=== PATIENT | male | born 1940 | race Caucasian/White ===

== ENCOUNTER 2020-12-11 19:40 | Inpatient (IN) | payer MEDICARE, SELFPAY ==
[2020-12-11] VITALS (7 sets, daily range): BP systolic 100–124; BP diastolic 62–84; PULSE 78–100; RESP 22–27; TEMP 36.6; O2SAT 87–94; BMI 28.8
--- NOTE | 2020-12-11 19:55 | ECG_ITS ---
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 Measurements Intervals [place] Rate: 81 P: 15 CA: 193 QRS: -16 QRSD: 167 T: 146 QT: 423 QTc: 492 Interpretive Statements SINUS RHYTHM POSSIBLE LEFT ATRIAL ENLARGEMENT [-0.1mV P WAVE IN V1/V2] LEFT BUNDLE BRANCH BLOCK [120+ ms QRS DURATION, 80+ ms Q/S IN V1/V2, 85+ ms R IN I/aVL/V5/V6] No previous ECG available for comparison Electronically Signed On 12-12-2020 20:03:12 CDT by Jared De M.D. [email or web address]
--- NOTE | 2020-12-11 19:55 | XRR_ITS ---
PROCEDURE INFORMATION: Exam: XR Chest Exam date and time: 12/11/2020 7:55 PM Age: 80 years old Clinical indication: Dyspnea; Additional info: SOB TECHNIQUE: Imaging protocol: XR of the chest. Views: 1 view. COMPARISON: No relevant prior studies available. FINDINGS: Lungs: Extensive tiny granulomas throughout lungs. No focal airspace consolidation. Mild emphysema. Pleural spaces: Unremarkable. No pleural effusion. No pneumothorax. Heart/Mediastinum: Previous CABG. Mild cardiomegaly. Vasculature: No vascular dilation. Bones/joints: Unremarkable. XR/XR chest 1V portable [id number] IMPRESSION: No focal acute pulmonary disease process.
--- NOTE | 2020-12-11 20:15 | W.ED.COVID ---
HPI - COVID General: Chief Complaint: COVID symptoms Stated Complaint: WEAKNESS/COVID+ Time Seen by Provider: 12/11/20 19:52 Triage information: Has fever, cough or shortness of breath. Exposure to COVID + person last 14 days History of Present Illness: MD complaint: known COVID positive Prior covid testing: yes, results known Prior testing date: 12/08/20 COVID 19 common symptoms: positive chills, cough, productive cough, dyspnea, fatigue, body aches, throat pain, nasal congestion and diarrhea; negative fever(s), headache(s) or vomiting COVID 19 other sytmptoms: positive requiring oxygen and lethargy; negative chest pressure or chest pain Onset (ago): day(s) Severity: moderate Pertinent comorbid conditions: hypertension and heart disease Treatment prior to arrival: acetaminophen COVID Results: No Data to Display Review of Systems Const: Reports: chills, body aches and fatigue; Denies: fever(s) Eyes: Denies: change in vision or blurry vision ENMT: Reports: throat pain and nasal congestion Card: Denies: chest pain Resp: Reports: dyspnea and productive cough GI: Reports: diarrhea; Denies: vomiting : Denies: difficulty urinating or hematuria Musc: Denies: neck pain or joint warmth Skin/Breast: Denies: rash or erythema Neuro: Denies: headache(s) Psych: Denies: anxiety PFSH ED PFSH: Medical History (Updated 12/11/20 @ 23:40 by Alona Crouch MD) Coronary artery disease Hypertension Surgical History (Updated 12/11/20 @ 23:40 by Alona Crouch MD) Hx of CABG Family History (Updated 12/11/20 @ 23:40 by Alona Crouch MD) Other CAD (coronary artery disease) Physical Exam Const: COMMON NORMALS: patient oriented x3 GENERAL APPEARANCE: cooperative, ill appearing and frail appearing ORIENTATION/CONSCIOUSNESS: Yes oriented to person, Yes oriented to place and Yes oriented to time HENMT: COMMON NORMALS: normocephalic, external ears normal and Normal external nose present HEAD & SCALP: normocephalic FACE & SINUS: normal facial exam NOSE: Normal external nose present EXTERNAL EAR: Yes external ears normal Eye: COMMON NORMALS: EOMs intact bilaterally and conjunctivae normal EYELID: eyelids normal CONJUNCTIVA: Yes conjunctivae normal Neck/C-Spine: GENERAL: No tracheal deviation Chest: COMMONS NORMALS: normal inspection of the chest CHEST: No tenderness Resp: COMMON NORMALS: negative for clear to auscultation bilaterally EFFORT & INSPECTION: No tachypneic, No respiratory distress, No retractions, No uses accessory muscles and No tracheal deviation AUSCULTATION: not clear to auscultation bilaterally, rhonchi, no wheezes and diminished lung sounds Cardio: COMMON NORMALS: regular rhythm RATE: tachycardic RHYTHM: regular rhythm HEART SOUNDS: no murmurs PERIPHERAL PULSES: radial pulses present GI: INSPECTION: No abdominal distension AUSCULTATION: No Hyperactive bowel sounds present and No Hypoactive bowel sounds present PALPATION: No Guarding due to palpation present (GI) and No Rigid due to palpation PERCUSSION: no dullness to percussion and no tympanic to percussion Neuro: COMMON NORMALS: patient oriented x3 SENSORIUM/ORIENTATION: Yes oriented to person, Yes oriented to place and Yes oriented to time Psych: COMMON NORMALS: mental status grossly normal Skin: COMMON NORMALS: no rashes or lesions noted GENERAL SKIN EXAM: no rashes or lesions noted Course Consultations: Consultation #1: evelyn Time: 21:59 Vital Signs: Vital signs: Vital Signs Temperature 98.2 F 12/12/20 00:18 Pulse Rate 75 12/12/20 00:18 Respiratory Rate 23 H 12/12/20 00:18 Blood Pressure 135/88 12/12/20 00:18 Pulse Oximetry 96 12/12/20 00:18 MDM - COVID MDM Narrative: Medical decision making narrative: 80-year-old male with a history of COVID-19 diagnosed on Sunday. He is 7 days out from the onset of his symptoms. He is generally weak, and short of breath. He is requiring oxygen. His saturations currently 93% on 4 L of oxygen. He does not use oxygen normally. His heart rate is down to 80 from the 100s on arrival. His chest x-ray shows bilateral pneumonitis. His D-dimer is 1400. His creatinine is 1.3. He has had diarrhea, appears to be dehydrated with a BUN of 38. He will be admitted for oxygen therapy, antivirals, IV fluid support gently, etc. Lab Data: Labs: Lab Results 12/11/20 12/11/20 12/11/20 Range/Units 20:00 20:10 20:10 WBC 4.6 (4.0-10.0) 10^3/ uL RBC 4.37 (4.1-5.3) 10^6/u L Hgb 14.2 (11.7-16.6) g/dL Hct 41.3 L (42.0-52.0) % MCV 94.5 H (80-94) fL MCH 32.5 (28.0-34.0) pg MCHC 34.4 (30.0-36.0) g/dL RDW 14.2 (12.1-15.1) % Plt Count 103 L (130-400) 10^3/c mm MPV 9.8 (7.4-10.4) fL Neut % (Auto) 78.9 % Lymph % (Auto) 14.5 % [place] % (Auto) 6.2 % Eos % (Auto) 0.0 % Baso % (Auto) 0.2 % Neut # (Auto) 3.59 (1.8-7.7) 10^3/u L Lymph # (Auto) 0.7 L (0.8-4.8) 10^3/u L [place] # (Auto) 0.3 (0.2-0.9) 10^3/u L Eos # (Auto) 0.0 (0.0-0.8) 10^3/u L Baso # (Auto) 0.0 (0.0-0.1) 10^3/u L Nucleated RBC % (a uto) 0 % Nucleated RBCs # 0.0 /100WBC D-Dimer 1.43 H (0-0.59) ug/mIFE U Specimen Type Arterial Sample Site Radial, left ABG pH 7.40 (7.35-7.45) ABG pCO2 36.4 (35-45) mmHg ABG pO2 72.8 L (80.0-100.0) mmH g ABG HCO3 22.7 (22-26) mmol/L ABG Base Excess -1.6 (-2.0-2.0) mmol/ L Nolberto Test Pos Hematocrit 45.5 (42-52) % O2 Delivery Device Nc O2 Liters/Min 4.0 % Contract Negotiation Specialist ID [email or web address] Sodium (136-145) mmol/L Potassium (3.5-5.1) mmol/L Chloride (98-107) mmol/L Carbon Dioxide (22-29) mmol/L Anion Gap (5-19) BUN (8-23) mg/dL Creatinine (0.7-1.2) mg/dL GFR Calculation Glucose (65-115) mg/dL Calculated Osmolal ity (285-295) mOsm/k g Lactic Acid (0.5-2.2) mmol/L Calcium (8.5-10.5) mg/dL Total Bilirubin (0.15-1.2) mg/dL AST (0-40) U/L ALT (0-41) U/L Alkaline Phosphata se (40-130) IU/L C-Reactive Protein (0.0-4.9) mg/L NT-Pro-B Natriuret Pep (0-450) pg/mL Total Protein (6.6-8.7) g/dL Albumin (3.5-5.2) g/dL Globulin (1.3-4.6) g/dL Procalcitonin (0-0.5) ng/mL 12/11/20 12/11/20 Range/Units 20:10 20:10 WBC (4.0-10.0) 10^3/ uL RBC (4.1-5.3) 10^6/u L Hgb (11.7-16.6) g/dL Hct (42.0-52.0) % MCV (80-94) fL MCH (28.0-34.0) pg MCHC (30.0-36.0) g/dL RDW (12.1-15.1) % Plt Count (130-400) 10^3/c mm MPV (7.4-10.4) fL Neut % (Auto) % Lymph % (Auto) % [place] % (Auto) % Eos % (Auto) % Baso % (Auto) % Neut # (Auto) (1.8-7.7) 10^3/u L Lymph # (Auto) (0.8-4.8) 10^3/u L [place] # (Auto) (0.2-0.9) 10^3/u L Eos # (Auto) (0.0-0.8) 10^3/u L Baso # (Auto) (0.0-0.1) 10^3/u L Nucleated RBC % (a uto) % Nucleated RBCs # /100WBC D-Dimer (0-0.59) ug/mIFE U Specimen Type Sample Site ABG pH (7.35-7.45) ABG pCO2 (35-45) mmHg ABG pO2 (80.0-100.0) mmH g ABG HCO3 (22-26) mmol/L ABG Base Excess (-2.0-2.0) mmol/ L Nolberto Test Hematocrit (42-52) % O2 Delivery Device O2 Liters/Min % Contract Negotiation Specialist ID Sodium 135 L (136-145) mmol/L Potassium 3.8 (3.5-5.1) mmol/L Chloride 102 (98-107) mmol/L Carbon Dioxide 21 L (22-29) mmol/L Anion Gap 15.8 (5-19) BUN 38 H (8-23) mg/dL Creatinine 1.3 H (0.7-1.2) mg/dL GFR Calculation Not Reportable Glucose 147 H (65-115) mg/dL Calculated Osmolal ity 292 (285-295) mOsm/k g Lactic Acid 1.3 (0.5-2.2) mmol/L Calcium 8.0 L (8.5-10.5) mg/dL Total Bilirubin 0.4 (0.15-1.2) mg/dL AST 141 H (0-40) U/L ALT 89 H (0-41) U/L Alkaline Phosphata se 63 (40-130) IU/L C-Reactive Protein 24.9 H (0.0-4.9) mg/L NT-Pro-B Natriuret Pep 80 (0-450) pg/mL Total Protein 6.5 L (6.6-8.7) g/dL Albumin 3.8 (3.5-5.2) g/dL Globulin 2.7 (1.3-4.6) g/dL Procalcitonin 0.25 (0-0.5) ng/mL COVID Results: No Data to Display Discharge Plan Discharge Patient Disposition: Admitted As Inpatient Admit Provider: Alona Crouch Clinical Impression: Pneumonia due to 2019 novel coronavirus Respiratory failure Qualifiers: Chronicity: acute Respiratory failure complication: hypoxia Qualified Code(s): J96.01 - Acute respiratory failure with hypoxia Condition: Serious Coding Level of Care Code ED Supervisor Speech for Jose Fwd Exam Comprehensive
[2020-12-11 20:18] LABS: Basophils % 0.2 %; Hematocrit 41.3 % (42.0-52.0); Hemoglobin 14.2 g/dL (11.7-16.6); Lymphocytes # 0.7 10^3/uL (0.8-4.8); Lymphocytes % 14.5 %; Mean Corpuscular HGB Conc 34.4 g/dL (30.0-36.0); Mean Corpuscular Hemoglobin 32.5 pg (28.0-34.0); Mean Corpuscular Volume 94.5 fL (80-94); Mean Platelet Volume 9.8 fL (7.4-10.4); Monocytes # 0.3 10^3/uL (0.2-0.9); Monocytes % 6.2 %; Neutrophils # 3.59 10^3/uL (1.8-7.7); Neutrophils % 78.9 %; Nucleated Red Blood Cells % 0 %; Platelet Count 103 10^3/cmm (130-400); Red Blood Count 4.37 10^6/uL (4.1-5.3); Red Cell Distribution Width 14.2 % (12.1-15.1); White Blood Count 4.6 10^3/uL (4.0-10.0)
[2020-12-11 20:21] LABS: ABG PCO2 36.4 mmHg (35-45); Arterial Blood Gas Hematocrit 45.5 % (42-52); Base Excess ABG -1.6 mmol/L (-2.0-2.0); Blood Gas Allen Test Pos; Blood Gas Sample Site Radial, left; Blood Gas Sample Type Arterial; HCO3 ABG 22.7 mmol/L (22-26); Oxygen Device NC; PO2 ABG 72.8 mmHg (80.0-100.0)
[2020-12-11 20:31] LABS: D Dimer 1.43 ug/mIFEU (0-0.59)
[2020-12-11 20:42] LABS: Lactic Sepsis W/Reflex 1.3 mmol/L (0.5-2.2)
[2020-12-11 20:43] LABS: NT Pro B Type Natriuretic Pept 80 pg/mL (0-450); Procalcitonin 0.25 ng/mL (0-0.5)
[2020-12-11 20:56] LABS: Alanine Aminotransferase 89 U/L (0-41); Alkaline Phosphatase 63 IU/L (40-130); Anion Gap 15.8 (5-19); Aspartate Amino Transferase 141 U/L (0-40); Blood Urea Nitrogen 38 mg/dL (8-23); C Reactive Protein 24.9 mg/L (0.0-4.9); Carbon Dioxide 21 mmol/L (22-29); Globulin 2.7 g/dL (1.3-4.6); Glucose 147 mg/dL (65-115); Osmolality Calculated 292 mOsm/kg (285-295); Total Bilirubin 0.4 mg/dL (0.15-1.2); Total Protein 6.5 g/dL (6.6-8.7)
[2020-12-11 20:57] LABS: Albumin Level 3.8 g/dL (3.5-5.2); Chloride 102 mmol/L (98-107); Potassium 3.8 mmol/L (3.5-5.1); Sodium 135 mmol/L (136-145)
[2020-12-11] MEDS: dexamethasone 4 mg/mL INJ 6 MG IVP (22:34)
[2020-12-11] MEDS: remdesivir 200 MG in sodium chloride 0.9% (100 ml) 100 ML 100 MG IV (22:39)
--- NOTE | 2020-12-11 23:32 | CTR_ITS ---
PROCEDURE INFORMATION: Exam: CTA Chest With Contrast Exam date and time: 12/11/2020 11:32 PM Age: 80 years old Clinical indication: Abnormal findings; Abnormal diagnostic tests; Elevated d-dimer; Additional info: Covid, elevated dimer, evalute for pe TECHNIQUE: Imaging protocol: Computed tomographic angiography of the chest with contrast. 3D rendering (Not supervised by radiologist): MIP and/or 3D reconstructed images were created by the technologist. Radiation optimization: All CT scans at this facility use at least one of these dose optimization techniques: automated exposure control; mA and/or kV adjustment per patient size (includes targeted exams where dose is matched to clinical indication); or iterative reconstruction. Contrast material: VISI; Contrast volume: 95 ml; Contrast route: INTRAVENOUS (IV); COMPARISON: CR (CHEST, ) 2020-12-11 20:27 RADIATION DOSE METRICS: Total DLP (mGy-cm): 589.72 FINDINGS: Pulmonary arteries: No filling defects in the pulmonary arteries to suggest pulmonary emboli. Aorta: Unremarkable. No aortic aneurysm. No aortic dissection. Lungs: There is a pulmonary parenchymal calcification consistent with remote granulomatous organism exposure. Peripheral scattered areas of interstitial thickening with some subtle questionable areas of honeycombing. Suspect chronic interstitial fibrosis. Covered not excluded. Pleural spaces: Unremarkable. No pneumothorax. No pleural effusion. Heart: Unremarkable. No cardiomegaly. No pericardial effusion. Lymph nodes: Mediastinal and hilar calcified adenopathy, question sarcoidosis. Liver: Enlarged low attenuating liver, evidence of hepatic steatosis. Spleen: The spleen demonstrates punctate calcifications, consistent with remote granulomatous organism exposure. Bones/joints: Mild S-shaped thoracic curvature. Soft tissues: Unremarkable. CT/CT angio chest PE protcl [id number] IMPRESSION: 1. Peripheral scattered areas of interstitial thickening with some subtle questionable areas of honeycombing. Suspect chronic interstitial fibrosis and superimposed atypical infection. 2. No filling defects in the pulmonary arteries to suggest pulmonary emboli. Radiation Dose CTDIVOL = (mGy): DLP = 589.72 (mGy-cm)
--- NOTE | 2020-12-11 23:37 | P.HP_ITS ---
Providers/Chief Complaint Admitting Physician: Alona Crouch MD Chief Complaint: WEAKNESS/COVID+ History of Present Illness Dennis Hernandez is a 80 year old male unvaccinated for COVID-19 who presents to the hospital today with chief complaints of fever chills productive cough dyspnea fatigue myalgias and diarrhea since testing Covid positive approximately 4 days ago. Came into the ER today due to worsening dyspnea, oxygen saturation upon arrival noted to be 84% on room air, with supplemental O2 at 4 L/min this is improved to 93%. Review of Systems General: Reports: 10 or more systems reviewed and unremarkable except in HPI and below Const: Reports: fever(s), chills and body aches Eyes: Denies: change in vision, blurry vision or photophobia ENMT: Reports: throat pain and hoarseness; Denies: enlarged tonsils, odynophagia or nasal congestion Card: Reports: dyspnea on exertion; Denies: chest pain, palpitations, irregular heart rhythm, edema, swelling of f eet/ankles, lightheadedness, pre-syncope or orthopnea Resp: Reports: dyspnea; Denies: productive cough, non-productive cough, wheezing, stridor, pain on inspiration, change in phlegm color, hemoptysis or chest congestion GI: Denies: abdominal pain, nausea, vomiting, hematemesis, coffee ground emesis, dysphagia, heartburn, diarrhea, constipation, GI cramping, change in stool character, hematochezia or melena : Denies: flank pain, dysuria, urinary frequency, urinary urgency, urinary hesitancy or hematuria Musc: Denies: neck pain, back pain, extremity pain, joint swelling, joint warmth or deformity Neuro: Denies: headache(s), numbness in extremities, weakness in extremities, sensory changes, difficulty walking, frequent falls, dizziness, vertigo, behavioral changes, Slurred speech present or seizure-like activity Psych: Denies: anxiety, depression, suicidal ideation or homicidal ideation Endo: Denies: polyuria, polydipsia, tired all the time, cold intolerance or hot flashes Wang/Lymph: Denies: easy bruising or easy bleeding Medications/Allergies Allergies Allergy/AdvReac Type Severity Reaction Status Date / Time No Known Allergies Allergy Verified 12/11/20 19:52 PFSH Acute PFSH: Medical History (Updated 12/11/20 @ 23:40 by Alona Crouch MD) Coronary artery disease Hypertension Surgical History (Updated 12/11/20 @ 23:40 by Alona Crouch MD) Hx of CABG Family History (Updated 12/11/20 @ 23:40 by Alona Crouch MD) Other CAD (coronary artery disease) Vitals/I&O/Wt Last Vital Signs Temp 97.9 F 12/11/20 19:42 Pulse 78 12/11/20 23:14 Resp 22 H 12/11/20 23:14 BP 124/84 12/11/20 23:14 Pulse Ox 93 12/11/20 23:14 Weight last 48 hrs Weight 86.183 kg Physical Exam Narrative: EXAM NARRATIVE: General: No acute distress, AO x3 HEENT: PERRLA, pupils bilaterally equal and reactive, pallors not present Chest: Normal vesicular breath sounds, no added sounds, equal good air entry bilaterally CVS: S1-S2 regular, no murmurs, no tachycardia, no gallops, no rubs Abdomen: Soft, nontender, no organomegaly, bowel sounds present Neuro: No focal deficits, no facial deformity, AO x3, power 5/5 in all limbs Data : 12/11/20 20:10 12/11/20 20:10 Micro: Microbiology 12/11/20 20:51 Blood Culture - Preliminary Blood SPECIMEN COLLECTED 12/11/20 20:31 Blood Culture - Preliminary Blood SPECIMEN COLLECTED A&P Assessment and plan (1) Pneumonia due to 2019 novel coronavirus: Chest x-ray per radiology read without gross infiltrates, however appears to have bilateral pneumonitis at lung bases. Currently requiring 4 L/min nasal cannula titrate oxygen to keep saturation 92% CRP 24.9, trend inflammatory markers in a.m. Elevated D-dimer, obtain CTA chest Start remdesivir, dexamethasone 6 mg IV every 24 Inhalation with duo nebs and budesonide, incentive spirometry Status: Acute (2) Respiratory failure: related to COVID pneumonia Status: Acute Qualifiers: Chronicity: acute Respiratory failure complication: hypoxia Qualified Code(s): J96.01 - Acute respiratory failure with hypoxia Additional A&P Information H/o CAD: home medication list N/A at this time DVT ppx: lovenox FUll code PUD ppx: Protonix 40mg po daily Attestations Medical Necessity Statement*: Greater than 2 midnight admission expected for COVID-19 pneumonia, hypoxic respiratory failure Coding Level of Care Code 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
[2020-12-12] VITALS (17 sets, daily range): BP systolic 118–135; BP diastolic 68–88; PULSE 70–117; RESP 16–23; TEMP 36.3–36.8; O2SAT 90–96
[2020-12-12] MEDS: enoxaparin 40 mg/0.4 mL Syringe SUBCUT ×2 (01:06→23:49)
[2020-12-12] MEDS: dexamethasone 4 mg/mL INJ 6 MG IVP ×2 (01:06→23:48)
[2020-12-12] MEDS: sodium chloride 0.9% 1,000 ML 75 ML IV (01:18)
[2020-12-12] MEDS: iodixanol 320 mg/mL 100mL Btl IV (02:51)
[2020-12-12] MEDS: ipratropium-albuterol 3 mL Neb INHALATION ×4 (03:12→20:09)
[2020-12-12] MEDS: levoFLOXacin 500 mg Tablet PO (05:13)
[2020-12-12 07:10] LABS: Hematocrit 44.2 % (42.0-52.0); Hemoglobin 14.3 g/dL (11.7-16.6); Lymphocytes # 0.4 10^3/uL (0.8-4.8); Lymphocytes % 10.3 %; Mean Corpuscular HGB Conc 32.4 g/dL (30.0-36.0); Mean Corpuscular Hemoglobin 32.1 pg (28.0-34.0); Mean Corpuscular Volume 99.3 fL (80-94); Mean Platelet Volume 10.2 fL (7.4-10.4); Monocytes # 0.1 10^3/uL (0.2-0.9); Monocytes % 2.2 %; Neutrophils # 3.53 10^3/uL (1.8-7.7); Nucleated Red Blood Cells % 0 %; Platelet Count 103 10^3/cmm (130-400); Red Blood Count 4.45 10^6/uL (4.1-5.3); Red Cell Distribution Width 14.6 % (12.1-15.1); White Blood Count 4.1 10^3/uL (4.0-10.0)
[2020-12-12] MEDS: metoprolol succinate ER (24 HR) 25 mg Tablet PO (08:48)
[2020-12-12] MEDS: pantoprazole DR 40 mg Tablet PO (08:49)
[2020-12-12] MEDS: aspirin 81 mg EC Tablet PO (08:49)
[2020-12-12] MEDS: ciprofloxacin 0.3% Op Soln 2.5 mL Btl 1 DROP EYE-BOTH ×4 (09:00→21:00)
[2020-12-12] MEDS: budesonide 0.5 mg/2 mL Neb INHALATION ×2 (09:53→20:09)
[2020-12-12 10:05] LABS: Slide Review Slide Review Perform
--- NOTE | 2020-12-12 10:54 | PM.PN ---
Subjective Subjective: Interval history: 80-year-old male with a past medical history significant for BPH, hypertension, coronary artery disease with history of CABG and recent COVID-19 infection presented to the hospital with fever, generalized weakness in respiratory distress. Laboratory workup on arrival showed a WBC of 4.6, hemoglobin 14.2, hematocrit 41.3 and a platelet count of 103 arterial blood gas showed a pH of 7.40, pCO2 of 36.4, PO2 72.8 and a bicarb of 22.7 sodium 135, potassium 3.8, chloride 102, bicarb 21, BUN 38 and creatinine of 1.3. AST of 141, ALT of 89 and alkaline phosphatase of 63. CRP 24.9. CTA chest showed peripheral scattered areas of interstitial thickening and some subtle questionable areas of honeycombing. No evidence of PE. Patient was started on supplemental oxygen, Decadron 6 mg daily, Levaquin 750 mg IV daily and Remdesivir. 12/12/20 Continued to require supplemental o2 No fever, chills, nausea or vomiting Feeling weak Medications: Reviewed: Yes Vitals/I&O/Wt Last Vital Signs Temp 97.6 F 12/12/20 08:00 Pulse 77 12/12/20 10:16 Resp 20 H 12/12/20 10:00 BP 124/71 12/12/20 08:00 Pulse Ox 92 12/12/20 10:00 12/11/20 12/12/20 12/12/20 22:59 06:59 14:59 Intake Total 100 / 100 520 / 520 Output Total 200 / 200 Balance -100 / -100 520 / 520 Weight last 48 hrs Weight 86.183 kg Physical Exam Narrative: EXAM NARRATIVE: General: Alert, Awake, NAD. HEENT: Grossly Unremarkable CVS: NSR Chest: Non-Labored respiration ABD: non-distended Ext: No edema Urinary Catheter Management^: Christianson: Cath Placed During This Visit: yes Reason for Continuing Indwelling Catheter: Acute Urinary Retention or Obstruction Urinary Catheter Date of Insertion: 12/12/20 Urinary Catheter Time of Insertion: 02:06 Data : 12/12/20 06:09 12/11/20 20:10 Micro: Microbiology 12/11/20 20:51 Blood Culture - Preliminary Blood SPECIMEN COLLECTED 12/11/20 20:31 Blood Culture - Preliminary Blood SPECIMEN COLLECTED A&P Assessment and plan (1) Pneumonia due to 2019 novel coronavirus: Decadron 6 mg daily new line Remdesivir 100 mg daily ? Last dose on 12/15 Emperically on Levaquin 750 mg daily Pulmicort 0.5 mg INH BID Duoneb q6hr Supplemental 02 as needed Home o2 eval at discharge. Status: Acute (2) Elevated LFTs: Repeat CMP in a.m. Status: Acute (3) Acute kidney injury: No prior Labs to compare Renal dose medications Repeat BMP in a.m. Status: Acute (4) Coronary artery disease: Aspirin 81 mg daily Status: Acute (5) Hypertension: Metoprolol 25 mg extended release daily Status: Acute (6) DVT prophylaxis: Lovenox 40 mg subcu daily Status: Acute Attestations Medical Necessity Statement*: Will require additional hospitalization for management of COVID-19 pneumonia Time Spent in Patient Care: Greater than 35 minutes (>than 50% of time spent in counselling and/or direct pt care on unit). 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
[2020-12-12 14:58] LABS: Alanine Aminotransferase 72 U/L (0-41); Albumin Level 3.3 g/dL (3.5-5.2); Alkaline Phosphatase 63 IU/L (40-130); Anion Gap 15.3 (5-19); Aspartate Amino Transferase 97 U/L (0-40); Blood Urea Nitrogen 33 mg/dL (8-23); C Reactive Protein 19.3 mg/L (0.0-4.9); Calcium 8.6 mg/dL (8.5-10.5); Carbon Dioxide 20 mmol/L (22-29); Chloride 103 mmol/L (98-107); Creatinine Clr Calc Pharmacy 65.0253; Globulin 3.2 g/dL (1.3-4.6); Glucose 181 mg/dL (65-115); Lactate Dehydrogenase 521 U/L (135-225); Osmolality Calculated 290 mOsm/kg (285-295); Potassium 4.3 mmol/L (3.5-5.1); Sodium 134 mmol/L (136-145); Total Bilirubin 0.3 mg/dL (0.15-1.2); Total Protein 6.5 g/dL (6.6-8.7)
[2020-12-12 16:00] LABS: Ferritin 2663 ng/mL (30-400)
[2020-12-12] MEDS: remdesivir 100 MG in sodium chloride 0.9% (100 ml) 100 ML IV (17:37)
[2020-12-12] MEDS: ALPRAZolam 0.5 mg Tablet 0.25 MG PO (23:49)
[2020-12-13] VITALS (18 sets, daily range): BP systolic 109–161; BP diastolic 58–77; PULSE 66–90; RESP 16–24; TEMP 36.3–36.9; O2SAT 88–93
[2020-12-13] MEDS: ipratropium-albuterol 3 mL Neb INHALATION ×4 (03:00→20:11)
[2020-12-13] MEDS: levoFLOXacin 500 mg Tablet PO (05:50)
[2020-12-13 06:50] LABS: Hematocrit 41.3 % (42.0-52.0); Hemoglobin 14.1 g/dL (11.7-16.6); Lymphocytes # 0.6 10^3/uL (0.8-4.8); Lymphocytes % 7.5 %; Mean Corpuscular HGB Conc 34.1 g/dL (30.0-36.0); Mean Corpuscular Hemoglobin 32.3 pg (28.0-34.0); Mean Corpuscular Volume 94.7 fL (80-94); Mean Platelet Volume 9.6 fL (7.4-10.4); Monocytes # 0.3 10^3/uL (0.2-0.9); Monocytes % 3.7 %; Neutrophils # 6.98 10^3/uL (1.8-7.7); Neutrophils % 88.2 %; Nucleated Red Blood Cells % 0 %; Platelet Count 134 10^3/cmm (130-400); Red Blood Count 4.36 10^6/uL (4.1-5.3); Red Cell Distribution Width 14.3 % (12.1-15.1); White Blood Count 7.9 10^3/uL (4.0-10.0)
[2020-12-13 07:27] LABS: Alanine Aminotransferase 63 U/L (0-41); Albumin Level 3.3 g/dL (3.5-5.2); Alkaline Phosphatase 62 IU/L (40-130); Anion Gap 15.3 (5-19); Aspartate Amino Transferase 83 U/L (0-40); Blood Urea Nitrogen 36 mg/dL (8-23); Calcium 8.2 mg/dL (8.5-10.5); Carbon Dioxide 22 mmol/L (22-29); Chloride 106 mmol/L (98-107); Creatinine Clr Calc Pharmacy 65.0253; Globulin 3.3 g/dL (1.3-4.6); Glucose 168 mg/dL (65-115); Osmolality Calculated 300 mOsm/kg (285-295); Potassium 4.3 mmol/L (3.5-5.1); Sodium 139 mmol/L (136-145); Total Bilirubin 0.4 mg/dL (0.15-1.2); Total Protein 6.6 g/dL (6.6-8.7)
[2020-12-13] MEDS: aspirin 81 mg EC Tablet PO (08:52)
[2020-12-13] MEDS: metoprolol succinate ER (24 HR) 25 mg Tablet PO (08:52)
[2020-12-13] MEDS: pantoprazole DR 40 mg Tablet PO (08:52)
[2020-12-13] MEDS: ciprofloxacin 0.3% Op Soln 2.5 mL Btl 1 DROP EYE-BOTH ×2 (08:54→22:03)
[2020-12-13] MEDS: budesonide 0.5 mg/2 mL Neb INHALATION ×2 (09:08→20:11)
--- NOTE | 2020-12-13 16:03 | PM.PN ---
Subjective Subjective: Interval history: Patient was seen and examined this morning, continues to complain of worsening cough, as well as shortness of breath. Medications: Reviewed: Yes Vitals/I&O/Wt Last Vital Signs Temp 97.9 F 12/13/20 12:00 Pulse 76 12/13/20 16:02 Resp 24 H 12/13/20 15:53 BP 110/67 12/13/20 12:00 Pulse Ox 91 12/13/20 15:53 12/13/20 12/13/20 12/13/20 06:59 14:59 22:59 Intake Total 480 / 480 Output Total 850 / 850 Balance -850 / -110 480 / 480 Weight last 48 hrs Weight 86.183 kg Physical Exam Const: COMMON NORMALS: patient oriented x3 Resp: OTHER: Diminished air entry bilaterally Cardio: COMMON NORMALS: regular rate, regular rhythm, S1 normal heart sound present, S2 normal heart sound present, No gallops present (Cardio), No murmurs present (Cardio), No rub (Cardio) and Peripheral pulses 2+ throughout RATE: regular rate RHYTHM: regular rhythm HEART SOUNDS: S1 normal heart sound present and S2 normal heart sound present PERIPHERAL PULSES: Peripheral pulses 2+ throughout GI: COMMON NORMALS: Normal to inspection, nondistended, normoactive bowel sounds present, Soft to palpation, non-tender, No hepatosplenomegaly present and no masses AUSCULTATION: Yes normoactive bowel sounds PALPATION: Yes Soft to palpation and Yes No hepatosplenomegaly present RECTAL EXAM: Yes deferred Extremity: COMMON NORMALS: no clubbing, cyanosis or edema and no pedal edema Neuro: COMMON NORMALS: patient oriented x3 Urinary Catheter Management^: Christianson: Cath Placed During This Visit: yes Reason for Continuing Indwelling Catheter: Acute Urinary Retention or Obstruction Urinary Catheter Date of Insertion: 12/12/20 Urinary Catheter Time of Insertion: 02:06 Data : 12/13/20 05:58 12/13/20 05:58 Micro: Microbiology 12/11/20 20:51 Blood Culture - Preliminary Blood NEGATIVE TO DATE 12/11/20 20:31 Blood Culture - Preliminary Blood NEGATIVE TO DATE A&P Assessment and plan (1) Pneumonia due to 2019 novel coronavirus: Decadron 6 mg daily new line Remdesivir 100 mg daily ? Last dose on 12/15 Emperically on Levaquin 750 mg daily Pulmicort 0.5 mg INH BID Duoneb q6hr Supplemental 02 as needed Home o2 eval at discharge. Status: Acute (2) Elevated LFTs: Repeat CMP in a.m. Status: Acute (3) Acute kidney injury: No prior Labs to compare Renal dose medications Repeat BMP in a.m. 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
[2020-12-13] MEDS: remdesivir 100 MG in sodium chloride 0.9% (100 ml) 100 ML IV (18:12)
--- NOTE | 2020-12-13 18:44 | XRR_ITS ---
PROCEDURE INFORMATION: Exam: XR Chest Exam date and time: 12/13/2020 6:44 PM Age: 80 years old Clinical indication: Shortness of breath; Additional info: SOB TECHNIQUE: Imaging protocol: XR of the chest. Views: 1 view. COMPARISON: CR (CHEST, ) 12/11/2020 8:27 PM FINDINGS: Lungs: Numerous calcified nodules within the lung parenchyma. Nonspecific. Correlate with prior CT. Subtle peripheral airspace disease as well as within the lung bases. Correlate. Pleural spaces: Unremarkable. No pleural effusion. No pneumothorax. Heart/Mediastinum: cardiac silhouette is enlarged. Prior sternotomy. Bones/joints: See Heart/Mediastinum finding. XR/XR chest 1V portable [id number] IMPRESSION: 1. Numerous calcified nodules within the lung parenchyma. Nonspecific. Correlate with prior CT. 2. Subtle peripheral airspace disease as well as within the lung bases. Correlate. Some of this is likely fibrotic.
[2020-12-13] MEDS: cefTRIAXone 1,000 MG in sodium chloride 0.9% (plus) 50 ML 100 MG IV (22:32)
[2020-12-13] MEDS: azithromycin 500 MG in sodium chloride 0.9% 250 ML 250 MG IV (23:16)
[2020-12-14] VITALS (17 sets, daily range): BP systolic 119–154; BP diastolic 73–87; PULSE 75–107; RESP 16–26; TEMP 36.4–37.2; O2SAT 87–92
[2020-12-14] MEDS: dexamethasone 4 mg/mL INJ 6 MG IVP (01:37)
[2020-12-14] MEDS: enoxaparin 40 mg/0.4 mL Syringe SUBCUT ×2 (01:37→23:29)
[2020-12-14] MEDS: ipratropium-albuterol 3 mL Neb INHALATION ×4 (02:53→21:33)
[2020-12-14 06:56] LABS: Hematocrit 40.2 % (42.0-52.0); Hemoglobin 13.6 g/dL (11.7-16.6); Lymphocytes # 0.4 10^3/uL (0.8-4.8); Lymphocytes % 6.8 %; Mean Corpuscular HGB Conc 33.8 g/dL (30.0-36.0); Mean Corpuscular Hemoglobin 32.1 pg (28.0-34.0); Mean Corpuscular Volume 94.8 fL (80-94); Mean Platelet Volume 9.9 fL (7.4-10.4); Monocytes # 0.3 10^3/uL (0.2-0.9); Monocytes % 5.2 %; Neutrophils # 5.16 10^3/uL (1.8-7.7); Neutrophils % 87.2 %; Nucleated Red Blood Cells % 0 %; Platelet Count 151 10^3/cmm (130-400); Red Blood Count 4.24 10^6/uL (4.1-5.3); Red Cell Distribution Width 14.3 % (12.1-15.1); White Blood Count 5.9 10^3/uL (4.0-10.0)
[2020-12-14 07:24] LABS: Alanine Aminotransferase 71 U/L (0-41); Albumin Level 3.1 g/dL (3.5-5.2); Alkaline Phosphatase 65 IU/L (40-130); Anion Gap 14.4 (5-19); Aspartate Amino Transferase 96 U/L (0-40); Blood Urea Nitrogen 31 mg/dL (8-23); C Reactive Protein 7.1 mg/L (0.0-4.9); Carbon Dioxide 22 mmol/L (22-29); Chloride 107 mmol/L (98-107); Globulin 3.1 g/dL (1.3-4.6); Glucose 194 mg/dL (65-115); Osmolality Calculated 300 mOsm/kg (285-295); Potassium 4.4 mmol/L (3.5-5.1); Sodium 139 mmol/L (136-145); Total Bilirubin 0.5 mg/dL (0.15-1.2); Total Protein 6.2 g/dL (6.6-8.7)
[2020-12-14 07:43] LABS: D Dimer <= 0.27 ug/mIFEU (0-0.59)
[2020-12-14 08:09] LABS: Ferritin 2663 ng/mL (30-400)
[2020-12-14] MEDS: metoprolol succinate ER (24 HR) 25 mg Tablet PO (10:06)
[2020-12-14] MEDS: aspirin 81 mg EC Tablet PO (10:06)
[2020-12-14] MEDS: pantoprazole DR 40 mg Tablet PO (10:06)
[2020-12-14] MEDS: ciprofloxacin 0.3% Op Soln 2.5 mL Btl 1 DROP EYE-BOTH ×2 (10:07→21:18)
[2020-12-14] MEDS: budesonide 0.5 mg/2 mL Neb INHALATION ×2 (10:22→21:33)
--- NOTE | 2020-12-14 12:00 | P.PN_ITS ---
Subjective Subjective: Interval history: Patient was seen and examined this morning, has shown slight signs of improvement. Says that he fells better today as compared to yesterday. Continue to be on HHFONC .Has remained afebrile. Medications: Reviewed: Yes Vitals/I&O/Wt Last Vital Signs Temp 98.3 F 12/14/20 11:49 Pulse 98 12/14/20 11:49 Resp 20 H 12/14/20 11:49 BP 120/76 12/14/20 11:49 Pulse Ox 90 12/14/20 11:49 12/13/20 12/14/20 12/14/20 22:59 06:59 14:59 Intake Total 474.5 / 954.5 300 / 1254.5 240 / 240 Output Total 600 / 600 600 / 1200 Balance -125.5 / 354.5 -300 / 54.5 240 / 240 Physical Exam Const: COMMON NORMALS: patient oriented x3 Resp: OTHER: Diminished air entry bilaterally Cardio: COMMON NORMALS: regular rate, regular rhythm, S1 normal heart sound present, S2 normal heart sound present, No gallops present (Cardio), No murmurs present (Cardio), No rub (Cardio) and Peripheral pulses 2+ throughout RATE: regular rate RHYTHM: regular rhythm HEART SOUNDS: S1 normal heart sound present and S2 normal heart sound present PERIPHERAL PULSES: Peripheral pulses 2+ throughout GI: COMMON NORMALS: Normal to inspection, nondistended, normoactive bowel sounds present, Soft to palpation, non-tender, No hepatosplenomegaly present and no masses AUSCULTATION: Yes normoactive bowel sounds PALPATION: Yes Soft to palpation and Yes No hepatosplenomegaly present RECTAL EXAM: Yes deferred Extremity: COMMON NORMALS: no clubbing, cyanosis or edema and no pedal edema Neuro: COMMON NORMALS: patient oriented x3 Urinary Catheter Management^: Christianson: Cath Placed During This Visit: yes Reason for Continuing Indwelling Catheter: Acute Urinary Retention or Obstruction Urinary Catheter Date of Insertion: 12/12/20 Urinary Catheter Time of Insertion: 02:06 Data : 12/14/20 06:35 12/14/20 06:35 A&P Assessment and plan (1) Pneumonia due to 2019 novel coronavirus: Decadron 6 mg daily new line Remdesivir 100 mg daily ? Last dose on 12/15 S/P 1 Dose of Tocilizumab Emperically on Cef and Azithromycin Pulmicort 0.5 mg INH BID Duoneb q6hr Supplemental 02 as needed Home o2 eval at discharge. Status: Acute (2) Elevated LFTs: Repeat CMP in a.m. Status: Acute (3) Acute kidney injury: SHIRAZ likely prerenal has resolved Renal dose medications Repeat BMP Status: Acute (4) Coronary artery disease: Aspirin 81 mg daily Status: Acute (5) Hypertension: Metoprolol 25 mg extended release daily Status: Acute (6) DVT prophylaxis: Lovenox 40 mg subcu daily Status: Acute Additional A&P Information H/o CAD: home medication list N/A at this time DVT ppx: lovenox FUll code PUD ppx: Protonix 40mg po daily Attestations 2 Medical Necessity Statement*: Patient needs to be in hospital for the management of COVID PNA Coding Level of Care Code Acute Senior Technical Project Manager for [facility] Fwd Exam Expanded Problem Focused Diagnoses Pneumonia due to 2019 novel coronavirus U07.1; J12.82 Elevated LFTs R79.89 Acute kidney injury N17.9 Coronary artery disease I25.10 Hypertension I10 DVT prophylaxis Z29.9
[2020-12-14] MEDS: FUROsemide 10 mg/mL SDV 2mL 20 MG IVP (14:49)
[2020-12-14 15:51] LABS: ABG PCO2 32.7 mmHg (35-45); ABG PH Result 7.44 (7.35-7.45); Alveolar-Arterial Oxygen Gradi 46.9 mmHg (5-10); Arterial Blood Gas Hematocrit 54.3 % (42-52); Base Excess ABG -1.1 mmol/L (-2.0-2.0); Blood Gas Allen Test Pos; Blood Gas Operator Identificat glc; Blood Gas Sample Site Radial, right; Blood Gas Sample Type Arterial; Carboxyhemoglobin 0.2 %THgb (0.4-20.1); HCO3 ABG 22.1 mmol/L (22-26); HGB O2 Sat 90.3 % (95-100); Ionized Calcium Level - ABG 1.1 mmol/L (1.1-1.4); Methemoglobin 0.5 % (0.4-1.5); Oxygen Device HAG; Oxygen Saturation ABG 90.9; PO2 ABG 60.6 mmHg (80.0-100.0); Potassium Level - ABG 4.2 mmol/L (3.5-5.0); Total Hemoglobin 17.7 g/dL (14-18)
[2020-12-14] MEDS: remdesivir 100 MG in sodium chloride 0.9% (100 ml) 100 ML IV (17:25)
[2020-12-14] MEDS: cefTRIAXone 1,000 MG in sodium chloride 0.9% (plus) 100 ML 100 MG IV (21:07)
[2020-12-14] MEDS: azithromycin 500 MG in sodium chloride 0.9% 250 ML 250 MG IV (22:16)
[2020-12-15] VITALS (19 sets, daily range): BP systolic 114–166; BP diastolic 71–81; PULSE 74–114; RESP 18–22; TEMP 36.4–37.1; O2SAT 86–93
[2020-12-15] MEDS: dexamethasone 4 mg/mL INJ 6 MG IVP (00:33)
[2020-12-15] MEDS: ipratropium-albuterol 3 mL Neb INHALATION ×4 (03:15→20:01)
[2020-12-15 05:39] LABS: Hematocrit 39.8 % (42.0-52.0); Hemoglobin 13.5 g/dL (11.7-16.6); Lymphocytes # 0.4 10^3/uL (0.8-4.8); Lymphocytes % 5.4 %; Mean Corpuscular HGB Conc 33.9 g/dL (30.0-36.0); Mean Corpuscular Hemoglobin 32.1 pg (28.0-34.0); Mean Corpuscular Volume 94.8 fL (80-94); Mean Platelet Volume 10.1 fL (7.4-10.4); Monocytes # 0.3 10^3/uL (0.2-0.9); Monocytes % 4.6 %; Neutrophils # 5.81 10^3/uL (1.8-7.7); Neutrophils % 89.4 %; Nucleated Red Blood Cells % 0 %; Platelet Count 160 10^3/cmm (130-400); Red Cell Distribution Width 14.4 % (12.1-15.1); White Blood Count 6.5 10^3/uL (4.0-10.0)
[2020-12-15 05:59] LABS: D Dimer 0.68 ug/mIFEU (0-0.59)
[2020-12-15 06:02] LABS: Alanine Aminotransferase 134 U/L (0-41); Albumin Level 3.3 g/dL (3.5-5.2); Alkaline Phosphatase 66 IU/L (40-130); Anion Gap 16.3 (5-19); Aspartate Amino Transferase 157 U/L (0-40); Blood Urea Nitrogen 29 mg/dL (8-23); C Reactive Protein 4.7 mg/L (0.0-4.9); Carbon Dioxide 23 mmol/L (22-29); Chloride 104 mmol/L (98-107); Glucose 229 mg/dL (65-115); Osmolality Calculated 301 mOsm/kg (285-295); Potassium 4.3 mmol/L (3.5-5.1); Sodium 139 mmol/L (136-145); Total Bilirubin 0.7 mg/dL (0.15-1.2); Total Protein 6.3 g/dL (6.6-8.7)
[2020-12-15 06:27] LABS: Ferritin 3409 ng/mL (30-400)
[2020-12-15 07:06] LABS: Slide Review Slide Review Perform
[2020-12-15] MEDS: budesonide 0.5 mg/2 mL Neb INHALATION ×2 (08:29→20:01)
[2020-12-15] MEDS: pantoprazole DR 40 mg Tablet PO (10:05)
[2020-12-15] MEDS: aspirin 81 mg EC Tablet PO (10:06)
[2020-12-15] MEDS: metoprolol succinate ER (24 HR) 25 mg Tablet PO (10:06)
--- NOTE | 2020-12-15 11:54 | P.PN_ITS ---
Subjective Subjective: Interval history: Patient was seen and examined this morning, continues to have slow improvement, Continue to be on HHFONC.supplemental oxygen requirement is slowly going down. Has remained afebrile. Medications: Reviewed: Yes Vitals/I&O/Wt Last Vital Signs Temp 98.7 F 12/15/20 08:00 Pulse 93 12/15/20 11:36 Resp 20 H 12/15/20 11:36 BP 114/71 12/15/20 08:00 Pulse Ox 90 12/15/20 11:36 12/14/20 12/15/20 12/15/20 22:59 06:59 14:59 Intake Total 200 / 680 250 / 930 180 / 180 Output Total 1650 / 1650 450 / 2100 Balance -1450 / -970 -200 / -1170 180 / 180 Physical Exam Const: COMMON NORMALS: patient oriented x3 Resp: OTHER: Diminished air entry bilaterally Cardio: COMMON NORMALS: regular rate, regular rhythm, S1 normal heart sound p resent, S2 normal heart sound present, No gallops present (Cardio), No murmurs present (Cardio), No rub (Cardio) and Peripheral pulses 2+ throughout RATE: regular rate RHYTHM: regular rhythm HEART SOUNDS: S1 normal heart sound present and S2 normal heart sound present PERIPHERAL PULSES: Peripheral pulses 2+ throughout GI: COMMON NORMALS: Normal to inspection, nondistended, normoactive bowel sounds present, Soft to palpation, non-tender, No hepatosplenomegaly present and no masses AUSCULTATION: Yes normoactive bowel sounds PALPATION: Yes Soft to palpation and Yes No hepatosplenomegaly present RECTAL EXAM: Yes deferred Extremity: COMMON NORMALS: no clubbing, cyanosis or edema and no pedal edema Neuro: COMMON NORMALS: patient oriented x3 Urinary Catheter Management^: Christianson: Cath Placed During This Visit: yes Reason for Continuing Indwelling Catheter: Acute Urinary Retention or Obstruction Urinary Catheter Date of Insertion: 12/12/20 Urinary Catheter Time of Insertion: 02:06 Data : 12/15/20 05:18 12/15/20 05:18 A&P Assessment and plan (1) Pneumonia due to 2019 novel coronavirus: Decadron 6 mg daily Remdesivir 100 mg daily ? Last dose on 12/15 S/P 1 Dose of Tocilizumab Emperically on Cef and Azithromycin Pulmicort 0.5 mg INH BID. Advair twice daily Duoneb q6hr Supplemental 02 as needed Status: Acute (2) Elevated LFTs: Monitor LFT (AST: 157, ALT:134, ALP: 66 ) , total bilirubin: 0.7 Status: Acute (3) Acute kidney injury: SHIRAZ likely prerenal has resolved Renal dose medications Repeat BMP Status: Acute (4) Coronary artery disease: Aspirin 81 mg daily Status: Acute (5) Hypertension: Metoprolol 25 mg extended release daily Status: Acute (6) DVT prophylaxis: Lovenox 40 mg subcu daily Status: Acute Additional A&P Information H/o CAD: home medication list N/A at this time DVT ppx: lovenox FUll code PUD ppx: Protonix 40mg po daily Attestations Medical Necessity Statement*: Patient needs to be the hospital for management of respiratory failure secondary to Covid pneumonia. Coding Level of Care Code Acute Test Engineering Technician for [facility] Fwd Diagnoses Pneumonia due to 2019 novel coronavirus U07.1; J12.82 Elevated LFTs R79.89 Acute kidney injury N17.9 Coronary artery disease I25.10 Hypertension I10 DVT prophylaxis Z29.9
--- NOTE | 2020-12-15 12:03 | PC.SOCIAL ---
IMM UPDATE Gave patient's son verbal IMM update. Verbalized understanding 12/15/20 @ 0858. Initialed, dated, timed and placed in chart.
[2020-12-15] MEDS: FUROsemide 10 mg/mL SDV 2mL 20 MG IVP (13:23)
[2020-12-15] MEDS: remdesivir 100 MG in sodium chloride 0.9% (100 ml) 100 ML IV (18:19)
[2020-12-15] MEDS: cefTRIAXone 1,000 MG in sodium chloride 0.9% (plus) 100 ML 100 MG IV (20:53)
[2020-12-15] MEDS: ALPRAZolam 0.5 mg Tablet 0.25 MG PO (20:54)
[2020-12-15] MEDS: ciprofloxacin 0.3% Op Soln 2.5 mL Btl 1 DROP EYE-BOTH (20:54)
[2020-12-15] MEDS: enoxaparin 40 mg/0.4 mL Syringe SUBCUT (22:12)
[2020-12-15] MEDS: azithromycin 500 MG in sodium chloride 0.9% 250 ML 250 MG IV (22:12)
[2020-12-16] VITALS (99 sets, daily range): BP systolic 90–184; BP diastolic 61–114; PULSE 69–185; RESP 13–31; TEMP 36.4–37.4; O2SAT 85–95
[2020-12-16] MEDS: dexamethasone 4 mg/mL INJ 6 MG IVP ×2 (00:15→23:58)
[2020-12-16] MEDS: ipratropium-albuterol 3 mL Neb INHALATION ×4 (03:16→21:10)
[2020-12-16 05:28] LABS: Basophils % 0.1 %; Hematocrit 41.5 % (42.0-52.0); Lymphocytes # 0.5 10^3/uL (0.8-4.8); Mean Corpuscular HGB Conc 33.7 g/dL (30.0-36.0); Mean Corpuscular Hemoglobin 32.1 pg (28.0-34.0); Mean Corpuscular Volume 95.2 fL (80-94); Mean Platelet Volume 9.8 fL (7.4-10.4); Monocytes # 0.3 10^3/uL (0.2-0.9); Monocytes % 3.4 %; Neutrophils # 6.91 10^3/uL (1.8-7.7); Neutrophils % 89.6 %; Nucleated Red Blood Cells % 0 %; Platelet Count 171 10^3/cmm (130-400); Red Blood Count 4.36 10^6/uL (4.1-5.3); Red Cell Distribution Width 14.2 % (12.1-15.1); White Blood Count 7.7 10^3/uL (4.0-10.0)
[2020-12-16 05:43] LABS: D Dimer 1.14 ug/mIFEU (0-0.59)
[2020-12-16 05:51] LABS: Alanine Aminotransferase 171 U/L (0-41); Albumin Level 3.3 g/dL (3.5-5.2); Alkaline Phosphatase 75 IU/L (40-130); Anion Gap 14.3 (5-19); Aspartate Amino Transferase 170 U/L (0-40); Blood Urea Nitrogen 27 mg/dL (8-23); Calcium 7.8 mg/dL (8.5-10.5); Carbon Dioxide 23 mmol/L (22-29); Chloride 102 mmol/L (98-107); Glucose 216 mg/dL (65-115); Osmolality Calculated 292 mOsm/kg (285-295); Potassium 4.3 mmol/L (3.5-5.1); Sodium 135 mmol/L (136-145); Total Protein 6.3 g/dL (6.6-8.7)
[2020-12-16 06:01] LABS: Slide Review Slide Review Perform
[2020-12-16 06:14] LABS: Ferritin 3276 ng/mL (30-400)
[2020-12-16] MEDS: budesonide 0.5 mg/2 mL Neb INHALATION ×2 (08:54→21:10)
[2020-12-16] MEDS: aspirin 81 mg EC Tablet PO (10:47)
[2020-12-16] MEDS: metoprolol succinate ER (24 HR) 25 mg Tablet PO (10:50)
[2020-12-16] MEDS: pantoprazole DR 40 mg Tablet PO (10:50)
[2020-12-16] MEDS: ciprofloxacin 0.3% Op Soln 2.5 mL Btl 1 DROP EYE-BOTH ×4 (10:51→20:37)
--- NOTE | 2020-12-16 11:37 | XR_ITS ---
WS: [id number] CHEST XRAY TECHNIQUE: Portable chest. CLINICAL INFORMATION: sob/PNA COMPARISON: December 13, 2020 FINDINGS: Sternotomy. CABG. Decreased inspiration today. New subcutaneous emphysema in the lower neck soft tissues and thoracic inlet. Evidence of pneumomediastinum. No visualized pneumothorax. Heart: Cardiomegaly. Lungs: Hazy subpleural groundglass infiltrates stable to slightly progressed compared to previous.Pro bable small left greater than right pleural effusions. Bones: Mild thoracic curve. XR/XR chest 1V portable [id number] IMPRESSION: 1. Interval development of subcutaneous emphysema in the lower neck soft tissu es with pneumomediastinum. Pneumomediastinum extends along the right heart bord er. 2. No visualized pneumothorax or mediastinal shift. 3. Subpleural hazy infiltrates in the right greater than left mid and lower darlyn ngs appear stable to slightly progressed compatible with COVID pneumonia. 4. Probable small left greater than right pleural effusions. Discussed with Drew Rush MD at 12/16/2020 12:16 PM.
--- NOTE | 2020-12-16 16:29 | PC.NURSE ---
report called to ICU CAILIN Barnett
--- NOTE | 2020-12-16 16:33 | PC.NURSE ---
called and updated patient's son Lucio [phone].
--- NOTE | 2020-12-16 17:09 | P.PN_ITS ---
Subjective Subjective: Interval history: Patient was seen and examined this morning, in the last 24 hours patient has developed subcutaneous emphysema in the lower neck soft tissues with pneumomediastinum. Pneumomediastinum extends along the right heart border. No visualized pneumothorax or mediastinal shift. Though he has continue to require heated high flow oxygen through nasal cannula at FiO2 70%, and 40 Ls flow.Clinically when I examined the patient, he states that he feels fine, denies any worsening shortness of breath, chest pain. Medications: Reviewed: Yes Vitals/I&O/Wt Last Vital Signs Temp 99.4 F 12/16/20 16:00 Pulse 78 12/16/20 16:00 Resp 18 12/16/20 16:00 BP 160/80 12/16/20 16:00 Pulse Ox 90 12/16/20 16:00 12/16/20 12/16/20 12/16/20 06:59 14:59 22:59 Intake Total 250 / 630 Output Total 600 / 2400 Balance -350 / -1770 Physical Exam Const: COMMON NORMALS: patient oriented x3 Resp: OTHER: Diminished air entry bilaterally Cardio: COMMON NORMALS: regular rate, regular rhythm, S1 normal heart sound present, S2 normal heart sound present, No gallops present (Cardio), No murmurs present (Cardio), No rub (Cardio) and Peripheral pulses 2+ throughout RATE: regular rate RHYTHM: regular rhythm HEART SOUNDS: S1 normal heart sound present and S2 normal heart sound present PERIPHERAL PULSES: Peripheral pulses 2+ throughout GI: COMMON NORMALS: Normal to inspection, nondistended, normoactive bowel sounds present, Soft to palpation, non-tender, No hepatosplenomegaly present and no masses AUSCULTATION: Yes normoactive bowel sounds PALPATION: Yes Soft to palpation and Yes No hepatosplenomegaly present RECTAL EXAM: Yes deferred Extremity: COMMON NORMALS: no clubbing, cyanosis or edema and no pedal edema Neuro: COMMON NORMALS: patient oriented x3 Urinary Catheter Management^: Christianson: Cath Placed During This Visit: yes Reason for Continuing Indwelling Catheter: Acute Urinary Retention or Obstruction Urinary Catheter Date of Insertion: 12/12/20 Urinary Catheter Time of Insertion: 02:06 Data : 12/16/20 05:20 12/16/20 05:20 A&P Assessment and plan (1) Respiratory failure with hypoxia: Acute hypoxic respiratory failure secondary ARDS secondary to to Covid pn eumonia. Monitor x-ray chest: CT angio chest PE protcl :No P/E, Peripheral scattered areas of interstitial thickening with some subtle questionable areas of honeycombing. Suspect chronic interstitial fibrosis and superimposed atypical infection. D-dimer: ESR CRP Ferritin Fibrinogen Blood culture Monitor ABG Monitor x-ray chest Remdesivir 5-day course Status post 1 dose of tocilizumab Dexamethasone 6 mg IV daily for 10 days Emperically on Cef and Azithromycin Pulmicort 0.5 mg INH BID. Advair twice daily Duoneb q6hr Supplemental 02 as needed Status: Acute (2) Pneumonia due to 2019 novel coronavirus: Status: Acute (3) Elevated LFTs: Monitor LFT (AST: 157, ALT:134, ALP: 66 ) , total bilirubin: 0.7 Status: Acute (4) Acute kidney injury: SHIRAZ likely prerenal has resolved Renal dose medications Repeat BMP Status: Acute (5) Coronary artery disease: Aspirin 81 mg daily Status: Acute (6) Hypertension: Metoprolol 25 mg extended release daily Status: Acute (7) DVT prophylaxis: Lovenox 40 mg subcu daily Status: Acute Additional A&P Information H/o CAD: home medication list N/A at this time DVT ppx: lovenox FUll code PUD ppx: Protonix 40mg po daily Attestations Medical Necessity Statement*: Patient needs to be in the hospital for manag ement of respiratory failure secondary to Covid pna Coding Level of Care Code Acute Patient Care Manager for [facility] Fwd Exam Expanded Problem Focused Diagnoses Respiratory failure with hypoxia J96.91 Pneumonia due to 2019 novel coronavirus U07.1; J12.82 Elevated LFTs R79.89 Acute kidney injury N17.9 Coronary artery disease I25.10 Hypertension I10 DVT prophylaxis Z29.9
--- NOTE | 2020-12-16 17:15 | PC.NURSE ---
patient taken to ICU 1
[2020-12-16] MEDS: benzonatate 100 mg Capsule PO (20:10)
[2020-12-16] MEDS: cefTRIAXone 1,000 MG in sodium chloride 0.9% (plus) 100 ML 100 MG IV (20:10)
[2020-12-16] MEDS: ALPRAZolam 0.5 mg Tablet 0.25 MG PO (20:10)
[2020-12-16] MEDS: azithromycin 500 MG in sodium chloride 0.9% 250 ML 250 MG IV (23:56)
[2020-12-16] MEDS: enoxaparin 40 mg/0.4 mL Syringe SUBCUT (23:58)
[2020-12-17] VITALS (276 sets, daily range): BP systolic 94–182; BP diastolic 36–113; PULSE 64–190; RESP 11–37; TEMP 36.4–36.6; O2SAT 75–97
[2020-12-17] MEDS: ipratropium-albuterol 3 mL Neb INHALATION ×4 (02:15→20:46)
[2020-12-17 05:32] LABS: Basophils % 0.1 %; Hematocrit 40.9 % (42.0-52.0); Hemoglobin 13.6 g/dL (11.7-16.6); Lymphocytes # 0.5 10^3/uL (0.8-4.8); Lymphocytes % 6.3 %; Mean Corpuscular HGB Conc 33.3 g/dL (30.0-36.0); Mean Corpuscular Hemoglobin 32.3 pg (28.0-34.0); Mean Corpuscular Volume 97.1 fL (80-94); Mean Platelet Volume 10.1 fL (7.4-10.4); Monocytes # 0.2 10^3/uL (0.2-0.9); Monocytes % 2.5 %; Neutrophils # 6.53 10^3/uL (1.8-7.7); Neutrophils % 90.1 %; Nucleated Red Blood Cells % 0 %; Platelet Count 187 10^3/cmm (130-400); Red Blood Count 4.21 10^6/uL (4.1-5.3); Red Cell Distribution Width 14.4 % (12.1-15.1); White Blood Count 7.3 10^3/uL (4.0-10.0)
[2020-12-17 05:46] LABS: Fibrinogen 319 mg/dL (174-498)
[2020-12-17 05:49] LABS: D Dimer 2.18 ug/mIFEU (0-0.59)
[2020-12-17 05:52] LABS: Alanine Aminotransferase 165 U/L (0-41); Albumin Level 3.1 g/dL (3.5-5.2); Alkaline Phosphatase 75 IU/L (40-130); Anion Gap 11.9 (5-19); Aspartate Amino Transferase 127 U/L (0-40); Blood Urea Nitrogen 26 mg/dL (8-23); C Reactive Protein 1.8 mg/L (0.0-4.9); Carbon Dioxide 26 mmol/L (22-29); Chloride 103 mmol/L (98-107); Globulin 3.1 g/dL (1.3-4.6); Glucose 206 mg/dL (65-115); Osmolality Calculated 293 mOsm/kg (285-295); Potassium 4.9 mmol/L (3.5-5.1); Sodium 136 mmol/L (136-145); Total Bilirubin 0.9 mg/dL (0.15-1.2); Total Protein 6.2 g/dL (6.6-8.7)
[2020-12-17 06:25] LABS: Erythrocyte Sedimentation Rate 24 mm/hr (0-10); Ferritin 2722 ng/mL (30-400)
[2020-12-17] MEDS: budesonide 0.5 mg/2 mL Neb INHALATION ×2 (07:41→20:46)
--- NOTE | 2020-12-17 07:45 | XR_ITS ---
WS: [id number] Portable AP upright chest, 12/17/2020 Clinical Data: Subcutaneous emphysema, Comparison: Portable chest, 12/16/2020 Findings: The subcutaneous emphysema in the right lower neck has almost completely resolved. The pneu momediastinum has partially cleared. The bilateral patchy lower lobe opacities in the lungs remains t he same. The heart remains enlarged. Midline sternotomy sutures are present. There are monitor leads on the chest wall. XR/XR chest 1V portable [id number] Impression: 1. Reduction in subcutaneous emphysema of the right neck and pneumomediastinum . 2. No change in cardiomegaly and bilateral lower lobe pulmonary opacities.
[2020-12-17] MEDS: ciprofloxacin 0.3% Op Soln 2.5 mL Btl 1 DROP EYE-BOTH ×4 (08:34→20:34)
[2020-12-17] MEDS: pantoprazole DR 40 mg Tablet PO (08:34)
[2020-12-17] MEDS: aspirin 81 mg EC Tablet PO (08:34)
[2020-12-17] MEDS: metoprolol succinate ER (24 HR) 25 mg Tablet PO (08:34)
--- NOTE | 2020-12-17 09:21 | PC.NUTR ---
Addendum entered by Paulina Green 12/17/20 09:44: Will modify supplement to Glucerna given frequently elevated glucose. Original Note: Nutrition assessment completed for LOS. PO intakes averaging 50% since admission, however noted that 4 meals missing from EMR. Recommend Ensure with meals to provide additional kcal/protein given poor intakes at times. Recommend to encourage po intakes of meals/supplements to optimize nutrition. See RD assessment for further details.
--- NOTE | 2020-12-17 11:16 | PM.PN ---
Subjective Subjective: Interval history: Patient was seen and examined this morning, was seen sitting in chair today. X-ray chest done in the morning: Have shown reduction in subcutaneous emphysema of the right neck and pneumomediastinum. Continue to be on heated high flow oxygen through nasal cannula, supplemental oxygen requirement has not worsened significantly. Medications: Reviewed: Yes Vitals/I&O/Wt Last Vital Signs Temp 98 F 12/17/20 08:00 Pulse 99 12/17/20 08:40 Resp 24 H 12/17/20 08:40 BP 111/73 12/17/20 08:40 Pulse Ox 89 L 12/17/20 08:40 12/16/20 12/17/20 12/17/20 22:59 06:59 14:59 Intake Total 100 / 100 250 / 350 240 / 240 Output Total 700 / 700 800 / 1500 300 / 300 Balance -600 / -600 -550 / -1150 -60 / -60 Physical Exam Const: COMMON NORMALS: patient oriented x3 Resp: OTHER: Diminished air entry bilaterally Cardio: COMMON NORMALS: regular rate, regular rhythm, S1 normal heart sound present, S2 normal heart sound present, No gallops present (Cardio), No murmurs present (Cardio), No rub (Cardio) and Peripheral pulses 2+ throughout RATE: regular rate RHYTHM: regular rhythm HEART SOUNDS: S1 normal heart sound present and S2 normal heart sound present PERIPHERAL PULSES: Peripheral pulses 2+ throughout GI: COMMON NORMALS: Normal to inspection, nondistended, normoactive bowel sounds present, Soft to palpation, non-tender, No hepatosplenomegaly present and no masses AUSCULTATION: Yes normoactive bowel sounds PALPATION: Yes Soft to palpation and Yes No hepatosplenomegaly present RECTAL EXAM: Yes deferred Extremity: COMMON NORMALS: no clubbing, cyanosis or edema and no pedal edema Neuro: COMMON NORMALS: patient oriented x3 Urinary Catheter Management^: Christianson: Cath Placed During This Visit: yes Reason for Continuing Indwelling Catheter: Accurate Measurement of Urinary Output in Critically Ill Patients Urinary Catheter Date of Insertion: 12/12/20 Urinary Catheter Time of Insertion: 02:06 Data : 12/17/20 04:33 12/17/20 04:33 Micro: Microbiology 12/11/20 20:51 Blood Culture - Final Blood NO GROWTH AFTER 5 DAYS 12/11/20 20:31 Blood Culture - Final Blood NO GROWTH AFTER 5 DAYS A&P Assessment and plan (1) Respiratory failure with hypoxia: Acute hypoxic respiratory failure secondary ARDS secondary to to Covid pneumonia. Monitor x-ray chest: CT angio chest PE protcl :No P/E, Peripheral scattered areas of interstitial thickening with some subtle questionable areas of honeycombing. Suspect chronic interstitial fibrosis and superimposed atypical infection. D-dimer: ESR CRP Ferritin Fibrinogen: Blood culture: Negative Monitor ABG Monitor x-ray chest Completed remdesivir 5-day course Status post 1 dose of tocilizumab Dexamethasone 6 mg IV daily for 10 days Emperically on Cef and Azithromycin Pulmicort 0.5 mg INH BID. Advair twice daily Duoneb q6hr Lovenox 40 mg subQ every 12 hours daily Morphine 2 mg IV every 4 hours as needed Supplemental 02 as needed Status: Acute (2) Pneumonia due to 2019 novel coronavirus: Status: Acute (3) Elevated LFTs: Monitor LFT (AST: 157, ALT:134, ALP: 66 ) , total bilirubin: 0.7 Status: Acute (4) Acute kidney injury: SHIRAZ likely prerenal has resolved Renal dose medications Repeat BMP Status: Acute (5) Coronary artery disease: Aspirin 81 mg daily Status: Acute (6) Hypertension: Metoprolol 25 mg extended release daily Status: Acute (7) DVT prophylaxis: Lovenox 40 mg subcu daily Status: Acute Additional A&P Information H/o CAD: home medication list N/A at this time DVT ppx: lovenox FUll code PUD ppx: Protonix 40mg po daily Attestations Medical Necessity Statement*: Patient needs to be in hospital for management of respiratory failure Coding Level of Care Code Acute [employer] Manager for [facility] Fwd Diagnoses Respiratory failure with hypoxia J96.91 Pneumonia due to 2019 novel coronavirus U07.1; J12.82 Elevated LFTs R79.89 Acute kidney injury N17.9 Coronary artery disease I25.10 Hypertension I10 DVT prophylaxis Z29.9
--- NOTE | 2020-12-17 12:20 | PC.SOCIAL ---
IMM Updated Updated pt's son on Pg 2 IMM. No questions voiced. Provided pt care nurse a copy to give to pt. Initialed, dated, & timed copy in chart.
[2020-12-17] MEDS: ALPRAZolam 0.5 mg Tablet 0.25 MG PO (16:11)
[2020-12-17] MEDS: morphine 4 mg/mL SDV 1 mL 2 MG IVP (19:48)
[2020-12-17] MEDS: cefTRIAXone 1,000 MG in sodium chloride 0.9% (plus) 100 ML 100 MG IV (19:48)
[2020-12-17] MEDS: enoxaparin 40 mg/0.4 mL Syringe SUBCUT (19:49)
[2020-12-17] MEDS: azithromycin 500 MG in sodium chloride 0.9% 250 ML 250 MG IV (22:07)
[2020-12-18] VITALS (115 sets, daily range): BP systolic 95–156; BP diastolic 63–118; PULSE 65–136; RESP 7–33; TEMP 36.4–37; O2SAT 76–96
[2020-12-18] MEDS: dexamethasone 4 mg/mL INJ 6 MG IVP (01:16)
[2020-12-18] MEDS: ipratropium-albuterol 3 mL Neb INHALATION ×4 (02:50→20:00)
--- NOTE | 2020-12-18 06:00 | XRR_ITS ---
PROCEDURE INFORMATION: Exam: XR Chest Exam date and time: 12/18/2020 6:00 AM Age: 80 years old Clinical indication: Prior surgery; Surgery type: Open heart; Patient HX: Subcu air and pneumomediastinum. Covid +; Additional info: Subcutaneoues emphysema, pneumomediastinum TECHNIQUE: Imaging protocol: XR of the chest. Views: 1 view. COMPARISON: CR XR chest 1V portable [id number] 12/17/2020 7:59 AM FINDINGS: Lungs: Patchy bilateral airspace opacities, slightly increased. Pleural spaces: Unremarkable. No pleural effusion. No pneumothorax. Heart/Mediastinum: Cardiomediastinal silhouette is stable. Trace pneumomediastinum, decreased compared to prior exam. Bones/joints: Previous median sternotomy. XR/XR chest 1V portable [id number] IMPRESSION: Patchy bilateral airspace opacities, slightly increased.
[2020-12-18 06:45] LABS: Basophils % 0.3 %; Hemoglobin 14.4 g/dL (11.7-16.6); Lymphocytes # 0.4 10^3/uL (0.8-4.8); Lymphocytes % 4.8 %; Mean Corpuscular HGB Conc 33.5 g/dL (30.0-36.0); Mean Corpuscular Hemoglobin 31.7 pg (28.0-34.0); Mean Corpuscular Volume 94.7 fL (80-94); Mean Platelet Volume 10.7 fL (7.4-10.4); Monocytes # 0.1 10^3/uL (0.2-0.9); Monocytes % 1.7 %; Neutrophils # 6.88 10^3/uL (1.8-7.7); Neutrophils % 91.5 %; Nucleated Red Blood Cells % 0 %; Platelet Count 216 10^3/cmm (130-400); Red Blood Count 4.54 10^6/uL (4.1-5.3); Red Cell Distribution Width 14.2 % (12.1-15.1); White Blood Count 7.5 10^3/uL (4.0-10.0)
[2020-12-18 07:01] LABS: Fibrinogen 334 mg/dL (174-498)
[2020-12-18 07:07] LABS: Alanine Aminotransferase 135 U/L (0-41); Albumin Level 3.4 g/dL (3.5-5.2); Alkaline Phosphatase 87 IU/L (40-130); Anion Gap 15.7 (5-19); Aspartate Amino Transferase 96 U/L (0-40); Blood Urea Nitrogen 21 mg/dL (8-23); Calcium 7.9 mg/dL (8.5-10.5); Carbon Dioxide 23 mmol/L (22-29); Chloride 101 mmol/L (98-107); Globulin 2.8 g/dL (1.3-4.6); Glucose 184 mg/dL (65-115); Osmolality Calculated 288 mOsm/kg (285-295); Potassium 4.7 mmol/L (3.5-5.1); Sodium 135 mmol/L (136-145); Total Bilirubin 0.9 mg/dL (0.15-1.2); Total Protein 6.2 g/dL (6.6-8.7)
[2020-12-18 07:20] LABS: D Dimer 3.02 ug/mIFEU (0-0.59)
[2020-12-18 08:50] LABS: Erythrocyte Sedimentation Rate 25 mm/hr (0-10)
[2020-12-18] MEDS: enoxaparin 40 mg/0.4 mL Syringe SUBCUT (09:15)
[2020-12-18] MEDS: metoprolol succinate ER (24 HR) 25 mg Tablet PO (09:16)
[2020-12-18] MEDS: aspirin 81 mg EC Tablet PO (09:16)
[2020-12-18] MEDS: piperacillin-tazobactam 3.375 GM in sodium chloride 0.9% (plus) 50 ML IV ×2 (09:16→16:58)
[2020-12-18] MEDS: LORazepam 2 mg/mL INJ 1 mL IVP ×3 (09:16→17:50)
[2020-12-18] MEDS: pantoprazole DR 40 mg Tablet PO (09:16)
[2020-12-18] MEDS: ciprofloxacin 0.3% Op Soln 2.5 mL Btl 1 DROP EYE-BOTH ×4 (09:17→21:50)
[2020-12-18] MEDS: budesonide 0.5 mg/2 mL Neb INHALATION ×2 (09:21→19:56)
[2020-12-18 09:44] LABS: ABG PCO2 35.4 mmHg (35-45); ABG PH Result 7.45 (7.35-7.45); Alveolar-Arterial Oxygen Gradi 75.3 mmHg (5-10); Arterial Blood Gas Hematocrit 48.2 % (42-52); Base Excess ABG 1.1 mmol/L (-2.0-2.0); Blood Gas Allen Test Pos; Blood Gas Operator Identificat GD; Blood Gas Sample Site Radial, right; Blood Gas Sample Type Arterial; Carboxyhemoglobin 0.3 %THgb (0.4-20.1); HCO3 ABG 24.7 mmol/L (22-26); Ionized Calcium Level - ABG 1.2 mmol/L (1.1-1.4); Methemoglobin 0.4 % (0.4-1.5); Oxygen Device NC; Oxygen Saturation ABG 87.7; PO2 ABG 53.4 mmHg (80.0-100.0); Potassium Level - ABG 4.7 mmol/L (3.5-5.0); Total Hemoglobin 15.7 g/dL (14-18)
[2020-12-18 10:28] LABS: Ferritin 2712 ng/mL (30-400)
--- NOTE | 2020-12-18 14:37 | PM.PN ---
Subjective Subjective: Interval history: Mr. Hernandez was seen and examined this morning he was extremely confused today, pulled out his IV lines, supplemental oxygen requirement has also gone up. He continues to remain afebrile, other vitals and labs have been reviewed. Medications: Reviewed: Yes Vitals/I&O/Wt Last Vital Signs Temp 98.6 F 12/18/20 12:00 Pulse 78 12/18/20 14:16 Resp 18 12/18/20 14:16 BP 110/83 12/18/20 14:00 Pulse Ox 95 12/18/20 14:16 12/17/20 12/18/20 12/18/20 22:59 06:59 14:59 Intake Total 340 / 1060 250 / 1310 100 / 100 Output Total 300 / 1000 1250 / 2250 Balance 40 / 60 -1000 / -940 100 / 100 Physical Exam Const: COMMON NORMALS: patient oriented x3 HENMT: COMMON NORMALS: normocephalic, atraumatic, hearing grossly normal bilaterally and external ears normal HEAD & SCALP: normocephalic and atraumatic EXTERNAL EAR: Yes external ears normal Eye: COMMON NORMALS: no scleral icterus GENERAL EYE: appearance normal, both eyes and all related structures Chest: COMMONS NORMALS: normal inspection of the chest and normal palpation of entire chest wall CHEST: Yes Symmetrical chest wall rise Resp: OTHER: Diminished air entry bilaterally, coarse breath sounds Cardio: COMMON NORMALS: regular rate, regular rhythm, S1 normal heart sound present, S2 normal heart sound present, No gallops present (Cardio), No murmurs present (Cardio), No rub (Cardio) and Peripheral pulses 2+ throughout RATE: regular rate RHYTHM: regular rhythm HEART SOUNDS: S1 normal heart sound present and S2 normal heart sound present PERIPHERAL PULSES: Peripheral pulses 2+ throughout GI: COMMON NORMALS: Normal to inspection, nondistended, normoactive bowel sounds present, Soft to palpation, non-tender, No hepatosplenomegaly present and no masses AUSCULTATION: Yes normoactive bowel sounds PALPATION: Yes Soft to palpation and Yes No hepatosplenomegaly present RECTAL EXAM: Yes deferred Extremity: COMMON NORMALS: no clubbing, cyanosis or edema and no pedal edema Neuro: COMMON NORMALS: patient oriented x3 Urinary Catheter Management^: Christianson: Cath Placed During This Visit: yes Reason for Continuing Indwelling Catheter: Accurate Measurement of Urinary Output in Critically Ill Patients Urinary Catheter Date of Insertion: 12/12/20 Urinary Catheter Time of Insertion: 02:06 Data : 12/18/20 05:34 12/18/20 05:34 A&P Assessment and plan (1) Respiratory failure with hypoxia: Acute hypoxic respiratory failure secondary ARDS secondary to to Covid pneumonia. Monitor x-ray chest:Patchy bilateral airspace opacities,Subcutaneoues emphysema, pneumomediastinum. CT angio chest PE protcl :No P/E, Peripheral scattered areas of interstitial thickening with some subtle questionable areas of honeycombing. Suspect chronic interstitial fibrosis and superimposed atypical infection. D-dimer:3.02 ESR: 25 CRP:1 Ferritin:2712 Fibrinogen:334 Blood culture: Negative MRSA PCR Monitor ABG Completed remdesivir 5-day course Status post 1 dose of tocilizumab Dexamethasone 6 mg IV daily for 10 days Initially Emperically on Cef and Azithromycin. Switched to Vanco and Zosyn. Pulmicort 0.5 mg INH BID. Advair twice daily Duoneb q6hr Lovenox 80 mg subQ every 12 hours daily Morphine 2 mg IV every 4 hours as needed. Ativan 2 mg IV every 4 hours prn daily Precedex drip Supplemental 02 Status: Acute (2) Pneumonia due to 2019 novel coronavirus: Status: Acute (3) Elevated LFTs: Monitor LFT (AST: 157, ALT:134, ALP: 66 ) , total bilirubin: 0.7 Status: Acute (4) Acute kidney injury: SHIRAZ likely prerenal has resolved Renal dose medications Repeat BMP Status: Acute (5) Coronary artery disease: Aspirin 81 mg daily Status: Acute (6) Hypertension: Metoprolol 25 mg extended release daily Status: Acute (7) DVT prophylaxis: Lovenox 40 mg subcu daily Status: Acute Additional A&P Information H/o CAD: home medication list N/A at this time DVT ppx: lovenox FUll code PUD ppx: Protonix 40mg po daily Attestations Medical Necessity Statement*: Patient is to be in hospital for management of respiratory failure. Coding Level of Care Code Acute Nuclear Process Engineer for [facility] Fwd Diagnoses Respiratory failure with hypoxia J96.91 Pneumonia due to 2019 novel coronavirus U07.1; J12.82 Elevated LFTs R79.89 Acute kidney injury N17.9 Coronary artery disease I25.10 Hypertension I10 DVT prophylaxis Z29.9
--- NOTE | 2020-12-18 21:21 | PC.PHAR ---
Vancomycin is dosed at 1gm IVPB every8 hours to produce a predicted trough level of 17.53 (population based pharmacokinetic analysis). A trough level has been ordered from the lab to be obtained before the fourth dose to confirm and adjust if needed.
[2020-12-18] MEDS: enoxaparin 80 mg/0.8 mL Syringe SUBCUT (21:51)
[2020-12-18] MEDS: dexmedetomidine 400 MCG in sodium chloride 0.9% (100 ml) 100 ML 11.2 MCG IV (22:33)
[2020-12-19] VITALS (111 sets, daily range): BP systolic 97–135; BP diastolic 62–86; PULSE 59–88; RESP 12–30; TEMP 35.7–36.6; O2SAT 84–95
[2020-12-19] MEDS: piperacillin-tazobactam 3.375 GM in sodium chloride 0.9% (plus) 50 ML IV ×3 (00:30→17:10)
[2020-12-19] MEDS: dexamethasone 4 mg/mL INJ 6 MG IVP (00:30)
[2020-12-19] MEDS: dexmedetomidine 400 MCG in sodium chloride 0.9% (100 ml) 100 ML 8.96 MCG IV (02:12)
[2020-12-19] MEDS: ipratropium-albuterol 3 mL Neb INHALATION ×4 (02:53→20:18)
[2020-12-19] MEDS: morphine 4 mg/mL SDV 1 mL 2 MG IVP ×2 (04:26→22:16)
--- NOTE | 2020-12-19 04:59 | PC.NURSE ---
Patient started to desat down into the lower 80s. Throughout the night the patient has been sating around 90-92%. Patient is a mouth breather and is unable to follow directions to breath in through his nose. A non-rebreather was placed over HHF cannula and was able to get pt's oxygen up to 88%. Respiratory therapist and hospitalist circulation librarian was notified of patients sudden desat in oxygen. No new orders given at this time. Will continue to closely monitor patient.
[2020-12-19 05:36] LABS: Basophils % 0.2 %; Eosinophils % 0.5 %; Hemoglobin 14.4 g/dL (11.7-16.6); Lymphocytes # 0.5 10^3/uL (0.8-4.8); Lymphocytes % 6.8 %; Mean Corpuscular HGB Conc 32.7 g/dL (30.0-36.0); Mean Corpuscular Hemoglobin 31.9 pg (28.0-34.0); Mean Corpuscular Volume 97.3 fL (80-94); Mean Platelet Volume 10.4 fL (7.4-10.4); Monocytes # 0.1 10^3/uL (0.2-0.9); Monocytes % 1.5 %; Neutrophils # 5.92 10^3/uL (1.8-7.7); Neutrophils % 89.8 %; Nucleated Red Blood Cells % 0 %; Platelet Count 193 10^3/cmm (130-400); Red Blood Count 4.52 10^6/uL (4.1-5.3); Red Cell Distribution Width 14.2 % (12.1-15.1); White Blood Count 6.6 10^3/uL (4.0-10.0)
[2020-12-19 05:59] LABS: Fibrinogen 300 mg/dL (174-498)
--- NOTE | 2020-12-19 06:00 | XRR_ITS ---
PROCEDURE INFORMATION: Exam: XR Chest Exam date and time: 12/19/2020 6:00 AM Age: 80 years old Clinical indication: Condition or disease; Lung condition and disease; Emphysema; Cough and dyspnea; Additional info: Subcutaneous emphysema and pneumomediastinum TECHNIQUE: Imaging protocol: XR of the chest. Views: 1 view. COMPARISON: CR (CHEST, ) 12/18/2020 5:34 AM FINDINGS: Lungs: Stable hazy bilateral pulmonary opacities. Pleural spaces: Unremarkable. No pleural effusion. No pneumothorax. Heart/Mediastinum: There is mild cardiomegaly. Bones/joints: There has been a median sternotomy. XR/XR chest 1V portable [id number] IMPRESSION: 1. Stable hazy bilateral pulmonary opacities. 2. Mild cardiomegaly.
[2020-12-19 06:05] LABS: Alanine Aminotransferase 126 U/L (0-41); Albumin Level 3.1 g/dL (3.5-5.2); Alkaline Phosphatase 80 IU/L (40-130); Anion Gap 13.7 (5-19); Aspartate Amino Transferase 88 U/L (0-40); Blood Urea Nitrogen 25 mg/dL (8-23); C Reactive Protein 0.8 mg/L (0.0-4.9); Calcium 8.1 mg/dL (8.5-10.5); Carbon Dioxide 23 mmol/L (22-29); Chloride 105 mmol/L (98-107); Globulin 2.9 g/dL (1.3-4.6); Glucose 178 mg/dL (65-115); Osmolality Calculated 293 mOsm/kg (285-295); Potassium 4.7 mmol/L (3.5-5.1); Sodium 137 mmol/L (136-145)
[2020-12-19 06:47] LABS: D Dimer 2.65 ug/mIFEU (0-0.59)
[2020-12-19 07:31] LABS: Erythrocyte Sedimentation Rate 22 mm/hr (0-10)
[2020-12-19] MEDS: enoxaparin 80 mg/0.8 mL Syringe SUBCUT ×2 (08:25→22:16)
[2020-12-19] MEDS: ciprofloxacin 0.3% Op Soln 2.5 mL Btl 1 DROP EYE-BOTH ×4 (08:26→22:19)
[2020-12-19 09:07] LABS: Ferritin 2297 ng/mL (30-400)
[2020-12-19] MEDS: dexmedetomidine 400 MCG in sodium chloride 0.9% (100 ml) 100 ML 15.69 MCG IV (10:05)
--- NOTE | 2020-12-19 10:05 | PC.SOCIAL ---
IMM UDPATE Gave patient's son verbal IMM update. Verbalized understanding. 12/19/20 @ 1005. Initialed, dated, timed and placed in chart.
[2020-12-19] MEDS: budesonide 0.5 mg/2 mL Neb INHALATION ×2 (10:46→20:18)
--- NOTE | 2020-12-19 11:18 | PC.NURSE ---
REceived okay from the patient's son son, the primary contact, to also give information to the daughter in law cely at [phone], and the other son nicole at [phone].
[2020-12-19 11:27] LABS: ABG PCO2 36.9 mmHg (35-45); ABG PH Result 7.46 (7.35-7.45); Alveolar-Arterial Oxygen Gradi 79.5 mmHg (5-10); Arterial Blood Gas Hematocrit 46.4 % (42-52); Base Excess ABG 2.1 mmol/L (-2.0-2.0); Blood Gas Allen Test Pos; Blood Gas Operator Identificat GD; Blood Gas Sample Site Radial, right; Blood Gas Sample Type Arterial; Carboxyhemoglobin 0.6 %THgb (0.4-20.1); HCO3 ABG 25.9 mmol/L (22-26); HGB O2 Sat 86.1 % (95-100); Ionized Calcium Level - ABG 1.1 mmol/L (1.1-1.4); Methemoglobin 0.9 % (0.4-1.5); Oxygen Device NC; Oxygen Saturation ABG 87.4; PO2 ABG 54.7 mmHg (80.0-100.0); Potassium Level - ABG 5.1 mmol/L (3.5-5.0); Total Hemoglobin 15.1 g/dL (14-18)
[2020-12-19] MEDS: vancomycin 1,000 MG in sodium chloride 0.9% 250 ML 250 MG IV ×2 (14:57→22:15)
[2020-12-19] MEDS: dexmedetomidine 400 MCG in sodium chloride 0.9% (100 ml) 100 ML 13.45 MCG IV (18:06)
--- NOTE | 2020-12-19 18:41 | PC.NURSE ---
Shift Summary: Uneventful shift. Patient rested in bed. Received meds as ordered. Oxygen settings remained the same (60L 95% hi flow). Precedex currently at 0.6
--- NOTE | 2020-12-19 20:18 | PM.PN ---
Subjective Subjective: Interval history: Mr. Hernandez was seen and examined this morning, currently requiring high supplemental oxygen on heated high flow oxygen through nasal cannula. Medications: Reviewed: Yes Vitals/I&O/Wt Last Vital Signs Temp 97.2 F L 12/19/20 18:00 Pulse 67 12/19/20 20:17 Resp 17 12/19/20 20:17 BP 123/83 12/19/20 18:15 Pulse Ox 91 12/19/20 20:17 12/19/20 12/19/20 12/19/20 06:59 14:59 22:59 Intake Total 127.616 / 377.616 208.318 / 208.318 355.042 / 563.360 Output Total 1000 / 1950 250 / 250 250 / 500 Balance -872.384 / -1572.384 -41.682 / -41.682 105.042 / 63.360 Physical Exam Const: COMMON NORMALS: patient oriented x3 HENMT: COMMON NORMALS: normocephalic, atraumatic, hearing grossly normal bilaterally and external ears normal HEAD & SCALP: normocephalic and atraumatic EXTERNAL EAR: Yes external ears normal Eye: COMMON NORMALS: no scleral icterus GENERAL EYE: appearance normal, both eyes and all related structures Chest: COMMONS NORMALS: normal inspection of the chest and normal palpation of entire chest wall CHEST: Yes Symmetrical chest wall rise Resp: OTHER: Diminished air entry bilaterally, coarse breath sounds Cardio: COMMON NORMALS: regular rate, regular rhythm, S1 normal heart sound present, S2 normal heart sound present, No gallops present (Cardio), No murmurs present (Cardio), No rub (Cardio) and Peripheral pulses 2+ throughout RATE: regular rate RHYTHM: regular rhythm HEART SOUNDS: S1 normal heart sound present and S2 normal heart sound present PERIPHERAL PULSES: Peripheral pulses 2+ throughout GI: COMMON NORMALS: Normal to inspection, nondistended, normoactive bowel sounds present, Soft to palpation, non-tender, No hepatosplenomegaly present and no masses AUSCULTATION: Yes normoactive bowel sounds PALPATION: Yes Soft to palpation and Yes No hepatosplenomegaly present RECTAL EXAM: Yes deferred Extremity: COMMON NORMALS: no clubbing, cyanosis or edema and no pedal edema Neuro: COMMON NORMALS: patient oriented x3 Urinary Catheter Management^: Christianson: Cath Placed During This Visit: yes Reason for Continuing Indwelling Catheter: Accurate Measurement of Urinary Output in Critically Ill Patients Urinary Catheter Date of Insertion: 12/12/20 Urinary Catheter Time of Insertion: 02:06 Data : 12/19/20 04:30 12/19/20 04:30 Micro: Microbiology 12/19/20 05:18 MRSA Culture - Final Nose 12/19/20 04:30 Blood Culture - Preliminary Blood SPECIMEN COLLECTED 12/19/20 04:30 Blood Culture - Preliminary Blood SPECIMEN COLLECTED A&P Assessment and plan (1) Respiratory failure with hypoxia: Acute hypoxic respiratory failure secondary ARDS secondary to to Covid pneumonia. Monitor x-ray chest:Stable hazy bilateral pulmonary opacities. CT angio chest PE protcl :No P/E, Peripheral scattered areas of interstitial thickening with some subtle questionable areas of honeycombing. Suspect chronic interstitial fibrosis and superimposed atypical infection. D-dimer:3.02 ESR: 25 CRP:1 Ferritin:2712 Fibrinogen:334 Blood culture: Negative MRSA PCR: Negative ABG: pH 7.46, PCO2 36, PO2 54.7, FiO2 100% Completed remdesivir 5-day course Status post 1 dose of tocilizumab Dexamethasone 6 mg IV daily for 10 days Initially Emperically on Cef and Azithromycin. Switched to Vanco and Zosyn. Pulmicort 0.5 mg INH BID. Advair twice daily Duoneb q6hr Lovenox 80 mg subQ every 12 hours daily Morphine 2 mg IV every 4 hours as needed. Ativan 2 mg IV every 4 hours prn daily Precedex drip Supplemental 02 Status: Acute (2) Pneumonia due to 2019 novel coronavirus: Status: Acute (3) Elevated LFTs: Monitor LFT (AST: 157, ALT:134, ALP: 66 ) , total bilirubin: 0.7 Status: Acute (4) Acute kidney injury: SHIRAZ likely prerenal has resolved Renal dose medications Repeat BMP Status: Acute (5) Coronary artery disease: Aspirin 81 mg daily Status: Acute (6) Hypertension: Metoprolol 25 mg extended release daily Status: Acute (7) DVT prophylaxis: Lovenox 40 mg subcu daily Status: Acute Additional A&P Information H/o CAD: home medication list N/A at this time DVT ppx: lovenox FUll code PUD ppx: Protonix 40mg po daily Attestations Medical Necessity Statement*: patient needs to be in hospital for the management of respiratory failure Coding Level of Care Code Acute Nuclear Reactor Technician for Linkg Fwd Exam Detailed Diagnoses Respiratory failure with hypoxia J96.91 Pneumonia due to 2019 novel coronavirus U07.1; J12.82 Elevated LFTs R79.89 Acute kidney injury N17.9 Coronary artery disease I25.10 Hypertension I10 DVT prophylaxis Z29.9
[2020-12-19 22:32] LABS: Vancomycin Trough 21.6 ug/mL (10-15)
[2020-12-20] VITALS (107 sets, daily range): BP systolic 89–152; BP diastolic 55–99; PULSE 60–116; RESP 11–41; TEMP 35.9–36.8; O2SAT 63–100
[2020-12-20] MEDS: dexamethasone 4 mg/mL INJ 6 MG IVP (01:40)
[2020-12-20] MEDS: piperacillin-tazobactam 3.375 GM in sodium chloride 0.9% (plus) 50 ML IV ×3 (01:41→16:46)
[2020-12-20] MEDS: dexmedetomidine 400 MCG in sodium chloride 0.9% (100 ml) 100 ML 15.69 MCG IV (01:48)
[2020-12-20] MEDS: ipratropium-albuterol 3 mL Neb INHALATION ×6 (02:15→23:28)
--- NOTE | 2020-12-20 02:43 | PC.NURSE ---
Started titrating patient down on his precedex gtt from 0.6mcg/kg/hr to 0.5mcg/kg/hr. While on 0.6mcg/kg/hr the patient has been resting comfortably with his eyes closed since beginning of shift. Short time after dropping patient down he started to alarm on the monitor for low 02. Upon entering the room the patient was awake with his eyes open and looking up at the ceiling. Pt was sating between 80% and 82%. Patient did not appear to be in any distress. Once in the room the patient looked at me and kept asking for water. I tried placing a straw in his mouth but it was like he was unable to comprehend that I was trying to get him to drink from a straw. I then tried placing a small amount of water from the straw into his mouth. Once the water was in his mouth I was unable to get him to swallow. I kept instructing him to swallow but all he did was keep asking me for water even though he had water in his mouth. I had to suction the water before he accidentally aspirated on it. He started to desat even further down into the 70's and becoming more anxious. I had to increase the precedex back up to 0.6mcg/kg/hr. Will continue to monitor pt.
[2020-12-20] MEDS: budesonide 0.5 mg/2 mL Neb INHALATION ×2 (08:04→20:25)
--- NOTE | 2020-12-20 08:48 | USCV_ITS ---
Dennis Hernandez Age: 80 Gender: M : 1940 Exam Date: 12/20/2020 09:14 Ordering Phys: Jose Antonio Vallejo MD Technologist: Exam Location: [facility] [place] Indication: SOB COVID BP: 97 / 63 HR: 127 Rhythm: Sinus Technical Quality: Technically difficult study MEASUREMENTS (Male / Female) Normal Values 2D ECHO LV Diastolic Diameter PLAX 4.5 cm 4.2 - 5.9 / 3.9 - 5.3 cm LV Systolic Diameter PLAX 3.1 cm IVS Diastolic Thickness 1.2 cm 0.6 - 1.0 / 0.6 - 0.9 cm IVS Systolic Thickness 1.7 cm LVPW Diastolic Thickness 1.3 cm 0.6 - 1.0 / 0.6 - 0.9 cm LVPW Systolic Thickness 1.4 cm LVOT Diameter 2.0 cm LV Ejection Fraction 2D Teich 59.3 % LV Ejection Fraction MOD 2C 49.7 % LV Ejection Fraction 2C AL 48.4 % LA Diameter 3.0 cm LA Width 3.8 cm LA Height 3.6 cm RA Width 3.5 cm RA Height 4.8 cm M-MODE Aortic Annulus Diameter 3.9 cm LA Ao Ratio MM 0.7 DOPPLER AV Peak Velocity 114.0 cm/s LVOT Peak Velocity 62.0 cm/s AV Area Cont Eq vti 2.0 cm squared AV Area Cont Eq pk 1.7 cm squared MV Area PHT 5.0 cm squared Mitral E to A Ratio 2.6 MV E' Velocity 42.0 cm/s Mitral E to MV E' Ratio 26.1 Mitral E to LV E' Lateral Ratio 27.0 Mitral E to LV E' Septal Ratio 25.3 TR Peak Velocity 99.7 cm/s TR Peak Gradient 4.0 mmHg FINDINGS Left Ventricle Normal left ventricular size. LV systolic function is mild to moderately reduced with EF of 40-45%. Mild to moderate global hypokinesis. Diastolic function is abnormal Right Ventricle The right ventricle is normal in size and function. Right Atrium The right atrium is normal in size. Left Atrium The left atrium is normal in size. Mitral Valve Structurally normal mitral valve without significant stenosis or prolapse. There is no mitral regurgitation. Aortic Valve Aortic valve is thickened without significant stenosis. There is mild aortic regurgitation. Tricuspid Valve Structurally normal tricuspid valve without significant stenosis or regurgitation. Insufficient TR jet to calculate RVSP Pulmonic Valve Structurally normal pulmonic valve without significant stenosis. There is no pulmonic regurgitation. Pericardium Normal pericardium without effusion. Aorta Normal ascending aorta dimension. CONCLUSIONS Technically difficult study with poor ultrasonic windows LV systolic function is mild to moderately reduced with EF of 40-45% Diastolic function is abnormal Mild aortic regurgitation No comparison studies are available Cedric Guevara MD (Electronically Signed) Final Date: 20 December 2020 17:08 S
[2020-12-20] MEDS: enoxaparin 80 mg/0.8 mL Syringe SUBCUT ×2 (09:09→21:43)
[2020-12-20] MEDS: ciprofloxacin 0.3% Op Soln 2.5 mL Btl 1 DROP EYE-BOTH ×4 (09:09→21:42)
--- NOTE | 2020-12-20 09:09 | P.PN_ITS ---
Subjective Subjective: Interval history: Hospital course, not to pressure. Examination patient does drowsy, mumbles during communication, AO x1, not following simple commands. On Precedex at 0.7. Hemodynamically stable and afebrile. Documented urine output last 24 hours 900 cc. Medications: Reviewed: Yes Vitals/I&O/Wt Last Vital Signs Temp 96.6 F L 12/20/20 08:00 Pulse 93 12/20/20 08:06 Resp 16 12/20/20 08:06 BP 97/65 12/20/20 08:00 Pulse Ox 92 12/20/20 08:06 12/19/20 12/20/20 12/20/20 22:59 06:59 14:59 Intake Total 405.042 / 613.360 400.875 / 1014.235 Output Total 250 / 500 400 / 900 100 / 100 Balance 155.042 / 113.360 0.875 / 114.235 -100 / -100 Physical Exam Const: GENERAL APPEARANCE: lethargic ORIENTATION/CONSCIOUSNESS: Yes oriented to person and Yes lethargic HENMT: COMMON NORMALS: normocephalic, atraumatic, hearing grossly normal bilaterally and external ears normal HEAD & SCALP: normocephalic and atraumatic EXTERNAL EAR: Yes external ears normal Eye: COMMON NORMALS: no scleral icterus GENERAL EYE: appearance normal, both eyes and all related structures Neck/C-Spine: COMMON NORMALS: negative for no meningeal signs Chest: COMMONS NORMALS: normal inspection of the chest and normal palpation of entire chest wall CHEST: Yes Symmetrical chest wall rise Resp: OTHER: Diminished air entry bilaterally, coarse breath sounds, bronchial breath sounds bilaterally Cardio: COMMON NORMALS: regular rate, regular rhythm, S1 normal heart sound present, S2 normal heart sound present, No gallops present (Cardio), No murmurs present (Cardio), No rub (Cardio) and Peripheral pulses 2+ throughout RATE: regular rate RHYTHM: regular rhythm HEART SOUNDS: S1 normal heart sound present and S2 normal heart sound present PERIPHERAL PULSES: Peripheral pulses 2+ throughout GI: COMMON NORMALS: Normal to inspection, nondistended, normoactive bowel sounds present, Soft to palpation, non-tender, No hepatosplenomegaly present and no masses AUSCULTATION: Yes normoactive bowel sounds PALPATION: Yes Soft to palpation and Yes No hepatosplenomegaly present RECTAL EXAM: Yes deferred Extremity: COMMON NORMALS: no clubbing, cyanosis or edema and no pedal edema Neuro: COMMON NORMALS: moves all extremities SENSORIUM/ORIENTATION: Yes oriented to person and Yes lethargic MENINGEAL SIGNS: No no meningeal signs and No nuccal rigidity Urinary Catheter Management^: Christianson: Cath Placed During This Visit: yes Reason for Continuing Indwelling Catheter: Accurate Measurement of Urinary Output in Critically Ill Patients Urinary Catheter Date of Insertion: 12/12/20 Urinary Catheter Time of Insertion: 02:06 Data : 12/19/20 04:30 12/19/20 04:30 Micro: Microbiology 12/19/20 05:18 MRSA Culture - Final Nose 12/19/20 04:30 Blood Culture - Preliminary Blood SPECIMEN COLLECTED 12/19/20 04:30 Blood Culture - Preliminary Blood SPECIMEN COLLECTED A&P Assessment and plan (1) Respiratory failure with hypoxia: Status: Acute (2) Pneumonia due to 2019 novel coronavirus: Status: Acute (3) Coronary artery disease: Status: Acute (4) Hypertension: Metoprolol 25 mg extended release daily Status: Acute (5) DVT prophylaxis: Lovenox 40 mg subcu daily Status: Acute (6) Elevated LFTs: Stable to trending down. Hydration. Continue to monitor daily. Status: Acute (7) Acute kidney injury: SHIRAZ likely prerenal has resolved Renal dose medications Repeat BMP Status: Acute Additional A&P Information Hypoxia secondary to COVID-19 pneumonia: Oxygen supplementation. 88%. Patient has finished course of remdesivir. Post 1 dose of Actemra. Continue dexamethasone to finish a 10-day course. DuoNebs every 6 hour, budesonide twice daily. Vitamin C, zinc. Incentive spirometry and flutter valve for pulmonary toilet when able. Low suspicion of bacterial infection. Pro-Fab negative. Check urine Legionella, bacterial antigen. Prelim blood negative culture negative. Stop IV antibiotics. We will continue to monitor for fever or leukocytosis. D-dimer elevated. CTA negative for PE. As patient is still requiring high flow continue with full code dose anticoagulation. Most likely patient will require 14 days of anticoagulation post discharge. Because of high oxygen demand we will keep patient as negative as possible. Patient looking clinically dry at present. Documented 3 L negative since admission. Patient unable to take n.p.o. because of altered mental status. Start patient on D5 half NS at 75 cc/h. Strict input output charting. Daily weights. Altered mental status: Most likely ICU delirium versus critical illness. Wean off Precedex drip patient is awake and able to eat. Stop Ativan. Morphine 1 mg every 8 hours as needed, Haldol 0.5 every 6 hours as needed. Frequent orientation, fall precautions. Check ammonia levels. Start patient on Remeron daily, trazodone 50 mg as needed at bedtime. H/o CAD: Monitor showing acute ST depressions. Check troponins. Continue with home dose of aspirin. Continue with metoprolol but started at 25 twice daily. Patient already on full dose Lovenox. For now hold off on ezetimibe and gemfibrozil given transaminitis. Hypertension: Goal blood pressure less than 140/90 mmHg. Continue with metoprolol. DVT ppx: lovenox FUll code PUD ppx: Protonix 40mg po daily. Discharge planning: Patient's care discussed in detail with son Mr. Erasmo Hernandez over the phone. All the questions were answered. Discussed that given the fact that patient still requires high oxygen supplementation and patient will most likely require aggressive pulmonary rehab once his mentation improves. Also discussed possibility of LTAC. Son is agreeable. Case management has been alerted. Attestations Medical Necessity Statement*: Requires further hospitalization for management of acute hypoxic respiratory failure secondary to COVID-19 pneumonia, altered mental status requiring Precedex drip Critical Care Time: The high probability of a clinically significant, sudden or life threatening deterioration of the patient's [respiratory, cardiac, neurological] system(s) required my full and direct attention, intervention and personal management. The critical care time is as shown. This time is in edgar tion to time spent performing any reported procedures but includes the following: [x] Data and vital sign review and interpretation [x] Patient assessment, examination and intervention [x] Documentation [x] Medication orders and management Critical Care Time (min): 60 Coding Level of Care Code Acute Private Sector Executive for Linkg Fwd Diagnoses Respiratory failure with hypoxia J96.91 Pneumonia due to 2019 novel coronavirus U07.1; J12.82 Coronary artery disease I25.10 Hypertension I10 DVT prophylaxis Z29.9 Elevated LFTs R79.89 Acute kidney injury N17.9
[2020-12-20] MEDS: dextrose 5%-sod chloride 0.9% 1,000 ML 50 ML IV (09:52)
[2020-12-20] MEDS: dexmedetomidine 400 MCG in sodium chloride 0.9% (100 ml) 100 ML 8.96 MCG IV (10:39)
[2020-12-20 11:26] LABS: NT Pro B Type Natriuretic Pept 210 pg/mL (0-450); Procalcitonin 0.08 ng/mL (0-0.5); Thyroid Stimulating Hormone 1.34 uIU/mL (0.27-4.20)
[2020-12-20 11:27] LABS: Ammonia 64 umol/L (16-60)
[2020-12-20 11:38] LABS: Iron 92 ug/dL (59-158); Percent Saturation 41.6 % (20-50); Total Iron Binding Capacity 221 mcg/dl; Unsaturated Iron Binding 129 ug/dL (112-347)
--- NOTE | 2020-12-20 12:52 | PC.NURSE ---
NUrse has been reducing precedex rate. last hour was at 0.4, just turned down to 0.3. Patient is now talking, but A/O x 0. Believes he is in the bank at [place]. Nurse offered moist swabs to patient but he refused, wanted a drink instead. Nurse would give the patient a sip of water, but patient wouldn't swallow. He would let it run out of his mouth, and accuse the nurse of trying to drown him. Believes water is running out of his stomach.
--- NOTE | 2020-12-20 15:52 | PC.NUTR ---
Nutrition reassessment: Significant decline in po intakes since last review, with pt consuming no meals since 12/17/20. GI Soft diet with Ensure Plus ordered today. Recommend TECHNICAL PROJECT COORDINATOR eval if unable to swallow/tolerate diet, however nurse reports swallowing difficulty more related to refusal, and anticipates pt able to swallow food at this time. If tolerating GI soft diet well, recommend advance to Regular to better meet nutritional needs. See full RD assessment for further details.
--- NOTE | 2020-12-20 16:48 | PC.NURSE ---
Titrating Precedex down per Dr cox orders. Precedex currently at 0.3, down from 0.6 this morning. Patient is still confused, but is not agitated or combative today.
--- NOTE | 2020-12-20 18:59 | PC.NURSE ---
Shift SUmmary: uneventful shift. Patient rested in bed. Received meds as ordered. Precedex has been titrated down throughout the day. Started at 0.6, but was reduced t0 0.2. Patient remained confused, but not agitated or combative. Precedex recently increased to 0.4 due to increased agitation near end of shift.
[2020-12-20] MEDS: morphine 4 mg/mL SDV 1 mL 2 MG IVP (21:29)
[2020-12-20] MEDS: dexmedetomidine 400 MCG in sodium chloride 0.9% (100 ml) 100 ML 11.2 MCG IV (21:33)
[2020-12-20] MEDS: LORazepam 2 mg/mL INJ 1 mL IVP (22:56)
--- NOTE | 2020-12-20 23:00 | PC.NURSE ---
Pt's precedex was turned down to 0.3mcg/kg/hr during day shift. Around 22:30 pt's 02 alarm started alarming and showing his oxygen to be in the mid 70's. Upon entering the room the pt was sitting straight up in the bed yelling he can't take this anymore. At the beginning of the shift he seemed a little anxious but was only wanting water. I tried talking with the pt to settle him down but kept telling CAILIN Ortiz and I that he didnt want to live anymore. He stated that he is 80 years old, miserable, and knows he isn't going to live through this. Pt was begging us to stop everything and to just let him go. He doesn't want to go through this anymore. During this episode I was unable to get pt to calm down and he continued to drop in oxygen. 2mg IV ativan given and precedex increased to 0.6mcg/kg/hr. Once he was settled down some I was able to place a non-rebreather over his mouth and get his oxygen back up in the low 90's. Pt is currently resting at this time. No s/sx of distress noted. Will continue to monitor pt.
[2020-12-21] VITALS (90 sets, daily range): BP systolic 81–182; BP diastolic 52–120; PULSE 74–192; RESP 13–41; TEMP 36.3–36.9; O2SAT 81–100
[2020-12-21] MEDS: dexamethasone 4 mg/mL INJ 6 MG IVP (01:19)
[2020-12-21] MEDS: ipratropium-albuterol 3 mL Neb INHALATION ×4 (04:49→20:15)
[2020-12-21] MEDS: dextrose 5%-sod chloride 0.9% 1,000 ML 50 ML IV (05:22)
[2020-12-21] MEDS: dexmedetomidine 400 MCG in sodium chloride 0.9% (100 ml) 100 ML 13.45 MCG IV (05:22)
[2020-12-21 05:23] LABS: Basophils % 0.1 %; Eosinophils % 0.3 %; Hematocrit 43.5 % (42.0-52.0); Hemoglobin 14.5 g/dL (11.7-16.6); Lymphocytes # 0.3 10^3/uL (0.8-4.8); Lymphocytes % 3.1 %; Mean Corpuscular HGB Conc 33.3 g/dL (30.0-36.0); Mean Corpuscular Hemoglobin 32.2 pg (28.0-34.0); Mean Corpuscular Volume 96.7 fL (80-94); Mean Platelet Volume 10.6 fL (7.4-10.4); Monocytes # 0.2 10^3/uL (0.2-0.9); Monocytes % 1.6 %; Neutrophils # 9.87 10^3/uL (1.8-7.7); Neutrophils % 93.9 %; Nucleated Red Blood Cells % 0 %; Platelet Count 225 10^3/cmm (130-400); Red Cell Distribution Width 14.2 % (12.1-15.1); White Blood Count 10.5 10^3/uL (4.0-10.0)
[2020-12-21 05:36] LABS: D Dimer 2.85 ug/mIFEU (0-0.59)
[2020-12-21 05:42] LABS: Alanine Aminotransferase 134 U/L (0-41); Albumin Level 3.1 g/dL (3.5-5.2); Alkaline Phosphatase 82 IU/L (40-130); Anion Gap 15.4 (5-19); Aspartate Amino Transferase 88 U/L (0-40); Blood Urea Nitrogen 29 mg/dL (8-23); Carbon Dioxide 23 mmol/L (22-29); Chloride 106 mmol/L (98-107); Estmated Average Glucose 146; Globulin 2.6 g/dL (1.3-4.6); Glucose 185 mg/dL (65-115); Hemoglobin A1C 6.7 % (4.0-6.0); Osmolality Calculated 301 mOsm/kg (285-295); Potassium 4.4 mmol/L (3.5-5.1); Sodium 140 mmol/L (136-145); Total Bilirubin 0.9 mg/dL (0.15-1.2); Total Protein 5.7 g/dL (6.6-8.7)
[2020-12-21 05:47] LABS: Troponin T (5th) Once 24 ng/L (0-15)
[2020-12-21 05:49] LABS: C Reactive Protein 0.5 mg/L (0.0-4.9); Creatine Phosphokinase 60 U/L (39-308); NT Pro B Type Natriuretic Pept 137 pg/mL (0-450)
--- NOTE | 2020-12-21 06:00 | XR_ITS ---
WS: [id number] Exam: XR chest 1V portable [id number] Date/Time of Exam: 12/21/2020 5:45 AM Reason For Exam: covid Comparison 12/19/2020. Patchy groundglass infiltrates noted in the bilateral lower lung zones show no significant change. Th e lungs are fully inflated. Normal heart size. No pleural effusions. Signs of previous CABG surgery. There may be a hiatal hernia present. XR/XR chest 1V portable [id number] IMPRESSION: 1. Patchy bilateral groundglass infiltrates in the lower lung zones showing lit tle change since prior study. 2. Other may be a hiatal hernia present.
[2020-12-21 06:02] LABS: Ferritin 2114 ng/mL (30-400)
[2020-12-21 06:11] LABS: Erythrocyte Sedimentation Rate 27 mm/hr (0-10)
[2020-12-21] MEDS: budesonide 0.5 mg/2 mL Neb INHALATION ×2 (07:22→20:15)
--- NOTE | 2020-12-21 08:22 | PC.NURSE ---
Upon entering room for morning assessment, patient is calm. Oriented to person, place, time, and situation. Precedex reduced from 0.3 to 0.2
[2020-12-21] MEDS: ascorbic acid 500 mg Tablet 1000 MG PO ×2 (09:04→18:00)
[2020-12-21] MEDS: metoprolol succinate ER (24 HR) 25 mg Tablet PO (09:05)
[2020-12-21] MEDS: zinc gluconate 50 mg Tablet PO (09:05)
[2020-12-21] MEDS: benzonatate 100 mg Capsule PO ×2 (09:05→21:28)
[2020-12-21] MEDS: duloxetine 30 mg Capsule PO (09:05)
[2020-12-21] MEDS: pantoprazole DR 40 mg Tablet PO (09:05)
[2020-12-21] MEDS: aspirin 81 mg EC Tablet PO (09:05)
[2020-12-21] MEDS: ciprofloxacin 0.3% Op Soln 2.5 mL Btl 1 DROP EYE-BOTH ×4 (09:05→21:28)
[2020-12-21] MEDS: enoxaparin 80 mg/0.8 mL Syringe SUBCUT ×2 (09:06→21:28)
--- NOTE | 2020-12-21 09:27 | PM.PN ---
Subjective Subjective: Interval history: Overnight patient was put back on Precedex upto 0.5. Today morning Precedex was weaned off. Patient was AO x4. Denies any nausea, vomiting, headache. Patient has been discussing goals of care multiple times during the day both with nurse and with myself. Patient is confused between comfort care or continue with the current care. He states he has had a long life and would not want his family to suffer through his in days and is tired and does not want to go to anymore but he is afraid of dying at this moment. We did discuss that continuing current care would mean to continue monitoring his respiratory status while his oxygenation improves and once it is at less than 60% the plan would be to transfer him to LTAC for further long-term pulmonary rehab while comfort care would mean keeping him comfortable comfortable while nature takes its own course which would eventually mean . We also discussed in detail that as a provider we will do our best to achieve his goals of care as per his wishes. Medications: Reviewed: Yes Vitals/I&O/Wt Last Vital Signs Temp 98.0 F 12/21/20 00:15 Pulse 84 12/21/20 07:36 Resp 24 H 12/21/20 07:36 BP 130/76 12/21/20 04:15 Pulse Ox 88 L 12/21/20 07:36 12/20/20 12/21/20 12/21/20 22:59 06:59 14:59 Intake Total 108.352 / 344.645 9319.584 / 1361.797 75 / 75 Output Total 400 / 500 400 / 900 Balance -291.648 / -217.787 679.584 / 461.797 75 / 75 Physical Exam Const: GENERAL APPEARANCE: lethargic ORIENTATION/CONSCIOUSNESS: Yes oriented to person and Yes lethargic HENMT: COMMON NORMALS: normocephalic, atraumatic, hearing grossly normal bilaterally and external ears normal HEAD & SCALP: normocephalic and atraumatic EXTERNAL EAR: Yes external ears normal Eye: COMMON NORMALS: no scleral icterus GENERAL EYE: appearance normal, both eyes and all related structures Neck/C-Spine: COMMON NORMALS: negative for no meningeal signs Chest: COMMONS NORMALS: normal inspection of the chest and normal palpation of entire chest wall CHEST: Yes Symmetrical chest wall rise Resp: OTHER: Diminished air entry bilaterally, coarse breath sounds, bronchial breath sounds bilaterally Cardio: COMMON NORMALS: regular rate, regular rhythm, S1 normal heart sound present, S2 normal heart sound present, No gallops present (Cardio), No murmurs present (Cardio), No rub (Cardio) and Peripheral pulses 2+ throughout RATE: regular rate RHYTHM: regular rhythm HEART SOUNDS: S1 normal heart sound present and S2 normal heart sound present PERIPHERAL PULSES: Peripheral pulses 2+ throughout GI: COMMON NORMALS: Normal to inspection, nondistended, normoactive bowel sounds present, Soft to palpation, non-tender, No hepatosplenomegaly present and no masses AUSCULTATION: Yes normoactive bowel sounds PALPATION: Yes Soft to palpation and Yes No hepatosplenomegaly present RECTAL EXAM: Yes deferred Extremity: COMMON NORMALS: no clubbing, cyanosis or edema and no pedal edema Neuro: COMMON NORMALS: moves all extremities SENSORIUM/ORIENTATION: Yes oriented to person and Yes lethargic MENINGEAL SIGNS: No no meningeal signs and No nuccal rigidity Urinary Catheter Management^: Christianson: Cath Placed During This Visit: yes Reason for Continuing Indwelling Catheter: Accurate Measurement of Urinary Output in Critically Ill Patients Urinary Catheter Date of Insertion: 12/12/20 Urinary Catheter Time of Insertion: 02:06 Data : 12/21/20 04:39 12/21/20 04:39 Micro: Microbiology 12/20/20 10:00 Bacterial Antigens - Final Urine Kidney 12/20/20 10:00 Legionella Urinary Antigen - Final Urine Catheterized 12/19/20 04:30 Blood Culture - Preliminary Blood NEGATIVE TO DATE 12/19/20 04:30 Blood Culture - Preliminary Blood NEGATIVE TO DATE A&P Assessment and plan (1) Respiratory failure with hypoxia: Status: Acute (2) Pneumonia due to 2019 novel coronavirus: Status: Acute (3) Coronary artery disease: Status: Acute (4) Hypertension: Metoprolol 25 mg extended release daily Status: Acute (5) DVT prophylaxis: Lovenox 40 mg subcu daily Status: Acute (6) Elevated LFTs: Stable to trending down. Hydration. Continue to monitor daily. Status: Acute (7) Acute kidney injury: SHIRAZ likely prerenal has resolved Renal dose medications Repeat BMP Status: Acute Additional A&P Information Hypoxia secondary to COVID-19 pneumonia: Oxygen supplementation. 88%. Patient has finished course of remdesivir. Post 1 dose of Actemra. Continue dexamethasone to finish a 10-day course. DuoNebs every 6 hour, budesonide twice daily. Vitamin C, zinc. Incentive spirometry and flutter valve for pulmonary toilet when able. Low suspicion of bacterial infection. Pro-Fab negative. Check urine Legionella, bacterial antigen. Prelim blood negative culture negative. Stop IV antibiotics. We will continue to monitor for fever or leukocytosis. D-dimer elevated. CTA negative for PE. As patient is still requiring high flow continue with full code dose anticoagulation. Most likely patient will require 14 days of anticoagulation post discharge. Because of high oxygen demand we will keep patient as negative as possible. Patient looking clinically dry at present. Documented 6 L negative since admission. Continue D5 half NS at 50 cc/h. Strict input output charting. Daily weights. Altered mental status: Most likely ICU delirium versus critical illness. Precedex weaned off. Haldol 0.5 IV every 8 hour as needed, morphine 1 mg every 6 hours as needed. Start patient on Remeron 30 mg p.o. at bedtime, Cymbalta 30 mg oral daily in the morning. We will continue to monitor. H/o CAD: Monitor showing acute ST depressions. Troponins within normal limits. No active chest pain. Continue with home dose of aspirin. Continue with metoprolol but started at 25 twice daily. Patient already on full dose Lovenox. For now hold off on ezetimibe and gemfibrozil given transaminitis. Hypertension: Goal blood pressure less than 140/90 mmHg. BP elevated. Will continue to monitor. Continue with metoprolol. Will up titrate accordingly or will add Amlo 5 mg PO QD DVT ppx: lovenox PUD ppx: Protonix 40mg po daily. Discharge planning: Patient's care discussed in detail with son Mr. Erasmo Hernandez over the phone. All the questions were answered. Discussed that given the fact that patient still requires high oxygen supplementation and patient will most likely require aggressive pulmonary rehab once his mentation improves. Also discussed possibility of LTAC. Son is agreeable. Case management has been alerted. CODE STATUS: Given the above discussion about goals of care with the patient various confused between continuing current medical management versus comfort care further goals of care were discussed and patient would not want to be attached to life extending monitors. He would not want any chest compressions. CODE STATUS changed to allow natural . Attestations Medical Necessity Statement*: Requires further hospitalization for management of hypoxia secondary COVID-19 pneumonia, altered mental status, still requiring high heated high flow oxygen supplementation to maintain saturation over 90%. Time Spent in Patient Care: Greater than 35 minutes (>than 50% of time spent in counselling and/or direct pt care on unit). Coding Level of Care Code Acute Control Operator Flow Coat for [facility] Fwd Exam Comprehensive Diagnoses Respiratory failure with hypoxia J96.91 Pneumonia due to 2019 novel coronavirus U07.1; J12.82 Coronary artery disease I25.10 Hypertension I10 DVT prophylaxis Z29.9 Elevated LFTs R79.89 Acute kidney injury N17.9
--- NOTE | 2020-12-21 09:55 | PC.CHAP ---
Pastoral Care Encounter/Spiritual Assessment Type of Contact [] Declined life agent visit [] Patient/Family/Request visit [] Outpatient visit [] Follow-up visit [] Physician referral [] Code/Alert [x] Routine visit [] Staff referral [] Actively dying [] Patient sleeping [] Family support [] [] Out of room [] Palliative care [] [] Receiving care in room [] Pre-surgical visit [] Trauma [] Long length of stay [x] ICU visit [] Other: Relational/Emotional Strength [] Patient feels connected with others/family/visitors/staff [] Distress [] Loneliness/isolation [] Abandonment Spirituality of Patient [] Person of Monica [] Attends Mandaen of their Monica [] Believes in Prayer [] Reads Bible or Spiritism materials [] There are Spiritual issues to be addressed Pole Inspector Interventions [x] Prayer [] Active listening [] Non-anxious presence [] Spiritual/emotional support [] Crisis/trauma care [] Spiritual counseling [] Bereavement support [] Provided bereavement packet [] Provided Bible/devotional materials [] Provided toy/stuffed animal, coloring book to patient or family member [] Provided Communion [] Anointing/[place] [] Salvation [x] Completed spiritual assessment [] Other: Impact on Illness or Injury [] Angry [] Fearful [] Anxious [] Often cries [] Exhaustion [] Unable to work [] Unable to attend congregational [] Unable to walk/stand [] Unable to read [] Unable to drive [] Unable to eat/drink [] Unable to sleep [] Unable to be with family [] Patient intubated [] Other: Summary Time spent with patient
--- NOTE | 2020-12-21 10:25 | PC.NURSE ---
Patient continues to be calm and cooperative. Restraints have been discontinued, precedex titrated down to 0.1. Patient is no longer expressing the desire to discontinue care. Now states that he wants to continue care. He is currently A/O to person, place, time, and situation.
--- NOTE | 2020-12-21 11:53 | PC.NURSE ---
Patient has expressed to the nurse that he he thinks he wants to stop receiving care. that he is 80 yearsold and has already lived a good life. He is tired of being tired, and that he doesn't want to proling his suffering or his family's suffering. Nurse explained to him out plans for care, including LTAC placement. Explained that it is his decision to end care if he wishes and we will respect it. He also has the ability to change his mind. Patient says he is still not sure what he wants to do and needs time to think. Patient wants to speak to our in flight refueling manager. Nurse contacted our in flight refueling manager and they said they can come down to speak to him. Currently patient is off of precedex and A/O x 4.
--- NOTE | 2020-12-21 12:35 | PC.CHAP ---
Pastoral Care Encounter/Spiritual Assessment Type of Contact [] Declined harbor police launch commander visit [x] Patient/Family/Request visit [] Outpatient visit [] Follow-up visit [] Physician referral [] Code/Alert [] Routine visit [] Staff referral [] Actively dying [] Patient sleeping [] Family support [] [] Out of room [] Palliative care [] [] Receiving care in room [] Pre-surgical visit [] Trauma [] Long length of stay [] ICU visit [x] Other: COVID patient Relational/Emotional Strength [] Patient feels connected with others/family/visitors/staff [x] Distress [] Loneliness/isolation [] Abandonment Spirituality of Patient [x] Person of Monica [] Attends Methodist of their Monica [x] Believes in Prayer [] Reads Bible or Bahai materials [] There are Spiritual issues to be addressed Special Effects Designer Interventions [x] Prayer [x] Active listening [x] Non-anxious presence [x] Spiritual/emotional support [] Crisis/trauma care [x] Spiritual counseling [] Bereavement support [] Provided bereavement packet [] Provided Bible/devotional materials [] Provided toy/stuffed animal, coloring book to patient or family member [] Provided Communion [] Anointing/[place] [] Salvation [x] Completed spiritual assessment [] Other: Impact on Illness or Injury [] Angry [] Fearful [] Anxious [] Often cries [] Exhaustion [] Unable to work [] Unable to attend temple [] Unable to walk/stand [] Unable to read [] Unable to drive [] Unable to eat/drink [] Unable to sleep [x] Unable to be with family [] Patient intubated [] Other: Summary Patient is coming to the point of post-covid. He is tired and feels that he has no hope of getting better. He wants to live, however he feels that he would not have a life and would be a burden to others. He wants his family to know that he loves them very much and that he is ready to go be with the Lord in [facility]. Patient expressed a desire to stop treatment and allow comfort care only. Special Effects Designer prayed with patient for clear guidance from the Lord. As soon as prayer was done, patient again expressed a desire to stop care and go home to the [facility]. Special Effects Designer explained to him that at any time he could change his mind and continue to receive care. Patient understood he had the right to continue care if he chose. Special Effects Designer spoke with patient about any fears he had. He expressed just the unknown of dying. Patient ask Special Effects Designer if God would be mad at him if he stopped care. Special Effects Designer assured patient that God would not be mad at him and in fact would be with him no matter what decision he made. Patient looked forward to being with Jan chávez. Special Effects Designer shared with patients nurse the information given here. Time spent with patient 25 minutes
--- NOTE | 2020-12-21 14:53 | PC.SOCIAL ---
IMM not Updated IMM was not updated. Pt is not expected to discharge w/n the next 48hrs.
[2020-12-21] MEDS: acetaminophen 325 mg Tablet 650 MG PO (15:35)
--- NOTE | 2020-12-21 17:39 | PC.NURSE ---
Around 1300, Dr cox came to talk to the patient to verify wishes to be placed on comfort care. Patient has since changed his mind about comfort care. He is now wanting to continue care, but has also expressed that he is unsure what he wants. At this time we will continue care. Patient understands that we will respect his wishes whatever he chooses and he is free to change his mind. He understands that our current goal is to get him to LTAC for rehab, and rehab may take many weeks.
--- NOTE | 2020-12-21 18:36 | PC.NURSE ---
patient has again changed his mind on comfort care measures. He would like to be placed on comfort care. Patient has changed his mind multiple times today. Nurse called the family, spoke to son named Ilia. Explained patient's wishes and that Dr cox is allowing visitors tommorow. Ilia told me that the patient has a history of depression which is made worse by hospital stays and in the past has want to refuse care, but changed his mind when he could see family. Ilia can come in tommorow. COmfort care measures can be discussed then. Until the patient is full code. Dr cox aware.
[2020-12-21] MEDS: mirtazapine 30 mg Tablet PO (21:28)
[2020-12-22] VITALS (94 sets, daily range): BP systolic 91–194; BP diastolic 59–122; PULSE 69–110; RESP 7–35; TEMP 36.9; O2SAT 67–95
[2020-12-22] MEDS: dexamethasone 4 mg/mL INJ 6 MG IVP (00:18)
[2020-12-22] MEDS: dextrose 5%-sod chloride 0.9% 1,000 ML 50 ML IV ×2 (00:19→20:05)
[2020-12-22] MEDS: ALPRAZolam 0.5 mg Tablet 0.25 MG PO (00:19)
--- NOTE | 2020-12-22 00:33 | PC.NURSE ---
Precedex restarted due to increased agitation and worsening vital signs.
[2020-12-22] MEDS: ipratropium-albuterol 3 mL Neb INHALATION ×7 (00:45→23:50)
--- NOTE | 2020-12-22 06:06 | PC.NURSE ---
Precedex at 0.3 throughout night, will titrate down at 0630. Patient rested well. High flow increased to 50L at 100%, patient sat SPO2 88-90% throughout night. Approximately 1450 ml out of corey. Patient did become hypertensive (190s/110s), came down with PRN Xanax.
[2020-12-22 07:29] LABS: D Dimer 2.59 ug/mIFEU (0-0.59)
[2020-12-22 07:40] LABS: C Reactive Protein 0.4 mg/L (0.0-4.9); Creatine Phosphokinase 81 U/L (39-308); NT Pro B Type Natriuretic Pept 1600 pg/mL (0-450)
[2020-12-22 08:08] LABS: Ferritin 2222 ng/mL (30-400)
--- NOTE | 2020-12-22 09:03 | PC.CHAP ---
Pastoral Care Encounter/Spiritual Assessment Type of Contact [] Declined lever operator visit [] Patient/Family/Request visit [] Outpatient visit [] Follow-up visit [] Physician referral [] Code/Alert [x] Routine visit [] Staff referral [] Actively dying [] Patient sleeping [] Family support [] [] Out of room [] Palliative care [] [] Receiving care in room [] Pre-surgical visit [] Trauma [] Long length of stay [x] ICU visit [x] Other: isolated Relational/Emotional Strength [] Patient feels connected with others/family/visitors/staff [] Distress [] Loneliness/isolation [] Abandonment Spirituality of Patient [] Person of Monica [] Attends Buddhist of their [place] [] Believes in Prayer [] Reads Bible or Latter Day materials [] There are Spiritual issues to be addressed Clinical Asst Interventions [x] Prayer [] Active listening [] Non-anxious presence [] Spiritual/emotional support [] Crisis/trauma care [] Spiritual counseling [] Bereavement support [] Provided bereavement packet [] Provided Bible/devotional materials [] Provided toy/stuffed animal, coloring book to patient or family member [] Provided Communion [] Anointing/[place] [] Salvation [x] Completed spiritual assessment [] Other: Impact on Illness or Injury [] Angry [] Fearful [] Anxious [] Often cries [] Exhaustion [] Unable to work [] Unable to attend buddhism [] Unable to walk/stand [] Unable to read [] Unable to drive [] Unable to eat/drink [] Unable to sleep [] Unable to be with family [] Patient intubated [] Other: Summary Time spent with patient
[2020-12-22] MEDS: metoprolol succinate ER (24 HR) 25 mg Tablet PO (09:04)
[2020-12-22] MEDS: duloxetine 30 mg Capsule PO (09:04)
[2020-12-22] MEDS: zinc gluconate 50 mg Tablet PO (09:04)
[2020-12-22] MEDS: benzonatate 100 mg Capsule PO ×3 (09:04→20:06)
[2020-12-22] MEDS: pantoprazole DR 40 mg Tablet PO (09:04)
[2020-12-22] MEDS: ascorbic acid 500 mg Tablet 1000 MG PO ×2 (09:04→16:59)
[2020-12-22] MEDS: aspirin 81 mg EC Tablet PO (09:04)
[2020-12-22] MEDS: enoxaparin 80 mg/0.8 mL Syringe SUBCUT ×2 (09:04→20:06)
[2020-12-22] MEDS: ciprofloxacin 0.3% Op Soln 2.5 mL Btl 1 DROP EYE-BOTH ×4 (09:11→20:06)
[2020-12-22] MEDS: budesonide 0.5 mg/2 mL Neb INHALATION ×2 (09:19→20:16)
[2020-12-22 09:20] LABS: Erythrocyte Sedimentation Rate 24 mm/hr (0-10)
[2020-12-22 10:40] LABS: Alanine Aminotransferase 187 U/L (0-41); Albumin Level 3.1 g/dL (3.5-5.2); Alkaline Phosphatase 113 IU/L (40-130); Anion Gap 15.5 (5-19); Aspartate Amino Transferase 123 U/L (0-40); Blood Urea Nitrogen 19 mg/dL (8-23); Calcium 8.1 mg/dL (8.5-10.5); Carbon Dioxide 21 mmol/L (22-29); Chloride 106 mmol/L (98-107); Globulin 2.8 g/dL (1.3-4.6); Glucose 173 mg/dL (65-115); Osmolality Calculated 292 mOsm/kg (285-295); Potassium 4.5 mmol/L (3.5-5.1); Sodium 138 mmol/L (136-145); Total Bilirubin 0.9 mg/dL (0.15-1.2); Total Protein 5.9 g/dL (6.6-8.7)
--- NOTE | 2020-12-22 15:46 | P.PN_ITS ---
Subjective Subjective: Interval history: Overnight patient was placed on minimal Precedex support of 0.1 because of tachycardia and hypertension. Today morning during examination Precedex has been turned off. Patient calm and comfortable. Hemodynamically stable. Still requiring high oxygen supplementation. Patient states he is getting tired. Does not want to talk about further goals of care and CODE STATUS for now. He does mention once in between that he would rather be comfortable then to go through the same. Documented urine output in last 24 hours 900 cc. Medications: Reviewed: Yes Vitals/I&O/Wt Last Vital Signs Temp 98.4 F 12/22/20 07:22 Pulse 85 12/22/20 13:00 Resp 28 H 12/22/20 13:00 BP 143/89 12/22/20 13:00 Pulse Ox 88 L 12/22/20 13:00 12/22/20 12/22/20 12/22/20 06:59 14:59 22:59 Intake Total 1034.463 / 1169.463 Output Total 1350 / 2050 Balance -315.537 / -880.537 Physical Exam Const: GENERAL APPEARANCE: lethargic ORIENTATION/CONSCIOUSNESS: Yes oriented to person and Yes lethargic HENMT: COMMON NORMALS: normocephalic, atraumatic, hearing grossly normal bilaterally and external ears normal HEAD & SCALP: normocephalic and atraumatic EXTERNAL EAR: Yes external ears normal Eye: COMMON NORMALS: no scleral icterus GENERAL EYE: appearance normal, both eyes and all related structures Neck/C-Spine: COMMON NORMALS: negative for no meningeal signs Chest: COMMONS NORMALS: normal inspection of the chest and normal palpation of entire chest wall CHEST: Yes Symmetrical chest wall rise Resp: OTHER: Diminished air entry bilaterally, coarse breath sounds, bronchial breath sounds bilaterally Cardio: COMMON NORMALS: regular rate, regular rhythm, S1 normal heart sound present, S2 normal heart sound present, No gallops present (Cardio), No murmurs present (Cardio), No rub (Cardio) and Peripheral pulses 2+ throughout RATE: regular rate RHYTHM: regular rhythm HEART SOUNDS: S1 normal heart sound present and S2 normal heart sound present PERIPHERAL PULSES: Peripheral pulses 2+ throughout GI: COMMON NORMALS: Normal to inspection, nondistended, normoactive bowel sounds present, Soft to palpation, non-tender, No hepatosplenomegaly present and no masses AUSCULTATION: Yes normoactive bowel sounds PALPATION: Yes Soft to palpation and Yes No hepatosplenomegaly present RECTAL EXAM: Yes deferred Extremity: COMMON NORMALS: no clubbing, cyanosis or edema and no pedal edema Neuro: COMMON NORMALS: moves all extremities SENSORIUM/ORIENTATION: Yes oriented to person and Yes lethargic MENINGEAL SIGNS: No no meningeal signs and No nuccal rigidity Urinary Catheter Management^: Christianson: Cath Placed During This Visit: yes, but has since been removed by the nurse Reason for Continuing Indwelling Catheter: Accurate Measurement of Urinary Output in Critically Ill Patients Urinary Catheter Date of Insertion: 12/21/20 Urinary Catheter Time of Insertion: 09:45 Date Urinary Catheter Removed: 12/21/20 Time Urinary Catheter Discontinued: 09:40 Data : 12/21/20 04:39 12/22/20 05:23 A&P Assessment and plan (1) Respiratory failure with hypoxia: Status: Acute (2) Pneumonia due to 2019 novel coronavirus: Status: Acute (3) Coronary artery disease: Status: Acute (4) Hypertension: Metoprolol 25 mg extended release daily Status: Acute (5) DVT prophylaxis: Lovenox 40 mg subcu daily Status: Acute (6) Elevated LFTs: Stable to trending down. Hydration. Continue to monitor daily. Status: Acute (7) Acute kidney injury: SHIRAZ likely prerenal has resolved Renal dose medications Repeat BMP Status: Acute Additional A&P Information Patient is more than 14 days post positive Covid test. Remove isolation precautions. Hypoxia secondary to COVID-19 pneumonia: Patient seems to be in consolidative state at present. Worsening oxygen supplementation. Oxygen supplementation keeping saturation over 88%. Patient seems to be a mouth breather so we will switch over to nonrebreather for better oxygen supplementation. Patient has finished course of remdesivir. Post 1 dose of Actemra. Continue dexamethasone to finish a 10-day course. DuoNebs every 6 hour, budesonide twice daily. Vitamin C, zinc. Incentive spirometry and flutter valve for pulmonary toilet when able. Low suspicion of bacterial infection. Pro-Fab negative. Urine Legionella, bacterial antigen negative. Prelim blood negative culture negative. Stop IV antibiotics. We will continue to monitor for fever or leukocytosis. D-dimer elevated. CTA negative for PE. As patient is still requiring high flow continue with full code dose anticoagulation. Most likely patient will require 14 days of anticoagulation post discharge. Because of high oxygen demand we will keep patient as negative as possible. Patient looking clinically dry at present. Documented 7 L negative since admission. Continue D5 half NS at 50 cc/h. Strict input output charting. Daily weights. Altered mental status: Resolving. Most likely ICU delirium versus critical illness. Precedex weaned off. Haldol 0.5 IV every 8 hour as needed, morphine 1 mg every 6 hours as needed. Continue with Remeron 30 mg p.o. at bedtime, Cymbalta 30 mg oral daily in the morning. We will continue to monitor. H/o CAD: Monitor showing acute ST depressions. Troponins within normal limits. No active chest pain. Continue with home dose of aspirin. Continue with metoprolol but started at 25 twice daily. Patient already on full dose Lovenox. For now hold off on ezetimibe and gemfibrozil given transaminitis. Hypertension: Goal blood pressure less than 140/90 mmHg. BP elevated. Will continue to monitor. Continue with metoprolol. Will up titrate accordingly or will add Amlo 5 mg PO QD DVT ppx: lovenox PUD ppx: Protonix 40mg po daily. Given patient's worsening oxygen supplementation requirement to maintain saturations at 90% patient is at high risk of intubation. Further goals of care were discussed with patient's son Mr. Lucio Hernandez. He states he understands the high risk intubation with higher chance of mortality once intubated with COVID- 19 but for now would want to give his father a chance and if needed he is okay with intubation. CODE STATUS changed back to full code. Attestations Medical Necessity Statement*: Requires further hospitalization for management of ARDS secondary to COVID-19 pneumonia. Time Spent in Patient Care: Greater than 35 minutes (>than 50% of time spent in counselling and/or direct pt care on unit) . Coding Level of Care Code Acute Machine Operator Helper for Jose Hanson Diagnoses Respiratory failure with hypoxia J96.91 Pneumonia due to 2019 novel coronavirus U07.1; J12.82 Coronary artery disease I25.10 Hypertension I10 DVT prophylaxis Z29.9 Elevated LFTs R79.89 Acute kidney injury N17.9
--- NOTE | 2020-12-22 18:06 | PC.NURSE ---
Pt refused dinner tray. Pt states, I do not feel hungry and don't want to eat. Nurse give pt a fresh glass of ice water and will attempt to feed pt at a later time.
[2020-12-22] MEDS: ondansetron 2 mg/ML SDV 2 mL 4 MG IVP (19:00)
[2020-12-22] MEDS: mirtazapine 30 mg Tablet PO (20:06)
[2020-12-23] VITALS (47 sets, daily range): BP systolic 118–157; BP diastolic 75–96; PULSE 88–118; RESP 9–30; TEMP 36.9; O2SAT 84–94
[2020-12-23] MEDS: dexamethasone 4 mg/mL INJ 6 MG IVP (01:36)
[2020-12-23] MEDS: ipratropium-albuterol 3 mL Neb INHALATION ×5 (03:39→21:11)
[2020-12-23 05:04] LABS: Basophils % 0.2 %; Eosinophils # 0.1 10^3/uL (0.0-0.8); Eosinophils % 0.6 %; Hematocrit 43.6 % (42.0-52.0); Hemoglobin 14.3 g/dL (11.7-16.6); Lymphocytes # 0.6 10^3/uL (0.8-4.8); Lymphocytes % 5.2 %; Mean Corpuscular HGB Conc 32.8 g/dL (30.0-36.0); Mean Corpuscular Hemoglobin 32.1 pg (28.0-34.0); Mean Corpuscular Volume 97.8 fL (80-94); Mean Platelet Volume 10.8 fL (7.4-10.4); Monocytes # 0.2 10^3/uL (0.2-0.9); Monocytes % 1.9 %; Neutrophils # 10.33 10^3/uL (1.8-7.7); Neutrophils % 91.5 %; Nucleated Red Blood Cells % 0 %; Platelet Count 199 10^3/cmm (130-400); Red Blood Count 4.46 10^6/uL (4.1-5.3); Red Cell Distribution Width 14.7 % (12.1-15.1); White Blood Count 11.3 10^3/uL (4.0-10.0)
[2020-12-23 05:14] LABS: ABG PCO2 41.6 mmHg (35-45); ABG PH Result 7.39 (7.35-7.45); Alveolar-Arterial Oxygen Gradi 69.4 mmHg (5-10); Arterial Blood Gas Hematocrit 45.6 % (42-52); Base Excess ABG 0.2 mmol/L (-2.0-2.0); Blood Gas Allen Test Pos; Blood Gas Sample Site Radial, right; Blood Gas Sample Type Arterial; Carboxyhemoglobin 0.4 %THgb (0.4-20.1); HCO3 ABG 25.3 mmol/L (22-26); HGB O2 Sat 87.8 % (95-100); Ionized Calcium Level - ABG 1.2 mmol/L (1.1-1.4); Methemoglobin 0.6 % (0.4-1.5); Oxygen Saturation ABG 88.7; PO2 ABG 57.1 mmHg (80.0-100.0); Potassium Level - ABG 4.2 mmol/L (3.5-5.0); Total Hemoglobin 14.9 g/dL (14-18)
[2020-12-23 05:24] LABS: D Dimer 2.58 ug/mIFEU (0-0.59)
[2020-12-23 05:28] LABS: Alanine Aminotransferase 213 U/L (0-41); Albumin Level 3.1 g/dL (3.5-5.2); Alkaline Phosphatase 125 IU/L (40-130); Anion Gap 12.2 (5-19); Aspartate Amino Transferase 133 U/L (0-40); Blood Urea Nitrogen 18 mg/dL (8-23); C Reactive Protein 0.6 mg/L (0.0-4.9); Calcium 7.9 mg/dL (8.5-10.5); Carbon Dioxide 25 mmol/L (22-29); Chloride 106 mmol/L (98-107); Globulin 2.8 g/dL (1.3-4.6); Glucose 162 mg/dL (65-115); NT Pro B Type Natriuretic Pept 585 pg/mL (0-450); Osmolality Calculated 293 mOsm/kg (285-295); Potassium 4.2 mmol/L (3.5-5.1); Sodium 139 mmol/L (136-145); Total Bilirubin 0.9 mg/dL (0.15-1.2); Total Protein 5.9 g/dL (6.6-8.7)
--- NOTE | 2020-12-23 05:47 | PC.NURSE ---
Patient held saturation levels better tonight. Patient also ate a peach cobbler dessert and tolerated well. Continue care.
--- NOTE | 2020-12-23 06:00 | XR_ITS ---
WS: [id number] XR chest 1V portable 12609 REASON FOR EXAM: covid FINDINGS: Diffuse interstitial infiltrative changes in the mid and lower lungs with some resolution since 2020. No new findings are noted. XR/XR chest 1V portable [id number] IMPRESSION: Interval improvement in pulmonary infiltrates.
--- NOTE | 2020-12-23 06:34 | PM.CONSULT ---
Providers/Reason For Consult Consulting Physician/Specialty*: Diego Bergman MD/ Pulmonary Critical Care Reason for Consult*: Acute hypoxic respiratory failure secondary to covid 19 pneumonia Requesting Physician: Jose Antonio Vallejo MD Attending Physician: Jose Antonio Vallejo MD History of Present Illness History of Present Illness Dennis Hernandez is a 80 year old male with PMH CAD s/p CABG, HTN admitted to ICU for acute hypoxic respiratory failure secondary to ARDS due to COVID - 19 pneumonia tested postive 4 days prior to admission on 12/11/20. since then received 5 days remdesivir & 10 days dexamethasone and 1 dose actemra. Pulmonary critical care consulted for the same. Patient seen at bedside today morning Appeared weak-saturating 94% on high flow nasal cannula 40 L and 65% FiO2 He reported he is feeling himself after several days Review of Systems General: Reports: 10 or more systems reviewed and unremarkable except in HPI and below Meds/Allergies Home Medications and Allergies Home Medications Medication Instructions Recorded Confirmed Last Taken Type aspirin 81 mg PO DAILY 12/12/20 12/12/20 Unknown History ezetimibe 10 mg PO DAILY 12/12/20 12/12/20 Unknown History gemfibrozil 600 mg PO BID 12/12/20 12/12/20 Unknown History lisinopril 5 mg PO DAILY 12/12/20 12/12/20 Unknown History metoprolol succinate 25 mg PO DAILY 12/12/20 12/12/20 Unknown History terazosin 1 mg PO DAILY 12/12/20 12/12/20 Unknown History Allergies Allergy/AdvReac Type Severity Reaction Status Date / Time No Known Allergies Allergy Verified 12/11/20 19:52 Current Medications Current Medications Generic Name Dose Route Start Last Admin Trade Name Freq PRN Reason Stop Dose Admin Acetaminophen 650 mg 12/12/20 00:18 12/21/20 15:35 Acetaminophen 325 Mg Tablet PO 650 mg Q6H PRN Administration Mild/Mod Pain Or Temp >/= 101 Albuterol/Ipratropium 3 ml 12/20/20 12:00 12/23/20 03:39 Ipratropium-Albuterol 3 Ml Neb INHALATION 3 ml Q4H.RESPIRATORY RADHA Administration Alprazolam 0.25 mg 12/17/20 14:18 12/22/20 00:19 Alprazolam 0.5 Mg Tablet PO 0.25 mg TID PRN Administration ANXIETY Ascorbic Acid 1,000 mg 12/20/20 18:00 12/22/20 16:59 Ascorbic Acid 500 Mg Tablet PO 1,000 mg BID RADHA Administration Aspirin 81 mg 12/12/20 09:00 12/22/20 09:04 Aspirin 81 Mg Ec Tablet PO 81 mg DAILY RADHA Administration Benzonatate 100 mg 12/20/20 09:00 12/22/20 20:06 Benzonatate 100 Mg Capsule PO 100 mg TID RADHA Administration Budesonide 0.5 mg 12/12/20 08:00 12/22/20 20:16 Budesonide 0.5 Mg/2 Ml Neb INHALATION 0.5 mg BID.RESPIRATORY RADHA Administration Ciprofloxacin HCl 1 drop 12/12/20 09:00 12/22/20 20:06 Ciprofloxacin 0.3% Op Soln 2.5 Ml Btl EYE-BOTH 1 drop QID RADHA Administration Protocol Dexamethasone 6 mg 12/12/20 00:18 12/23/20 01:36 Dexamethasone 4 Mg/Ml Inj IVP 6 mg Q24H RADHA Administration Duloxetine HCl 30 mg 12/21/20 09:00 12/22/20 09:04 Duloxetine 30 Mg Capsule PO 30 mg DAILY RADHA Administration Enoxaparin Sodium 80 mg 12/18/20 21:00 12/22/20 20:06 Enoxaparin 80 Mg/0.8 Ml Syringe SUBCUT 80 mg Q12H RADHA Administration Dexmedetomidine HCl 400 mcg/ 104 mls @ 0 mls/hr 12/18/20 17:30 12/22/20 00:19 Sodium Chloride IV Infused .Q0M RADHA Titration Protocol Per Protocol Dextrose/Sodium Chloride 1,000 mls @ 50 mls/hr 12/20/20 09:15 12/22/20 20:05 Dextrose 5%-Sod Chloride 0.9% IV 50 mls/hr .Q20H RADHA Administration Metoprolol Succinate 25 mg 12/12/20 09:00 12/22/20 09:04 Metoprolol Succinate Er (24 Hr) 25 Mg Tablet PO 25 mg DAILY RADHA Administration Mirtazapine 30 mg 12/21/20 21:00 12/22/20 20:06 Mirtazapine 30 Mg Tablet PO 30 mg BEDTIME RADHA Administration Ondansetron HCl 4 mg 12/12/20 00:18 12/22/20 19:00 Ondansetron 2 Mg/Ml Sdv 2 Ml IVP 4 mg Q6H PRN Administration NAUSEA AND VOMITING Pantoprazole Sodium 40 mg 12/12/20 09:00 12/22/20 09:[address] 40 Mg Tablet PO 40 mg DAILY RADHA Administration Fluticasone/Salmeterol 1 puff 12/15/20 11:50 12/22/20 23:50 Fluticasone-Salmeterol 250-50 Diskus INHALATION Not Given BID.RESPIRATORY RADHA Zinc Gluconate 50 mg 12/20/20 09:00 12/22/20 09:04 Zinc Gluconate 50 Mg Tablet PO 50 mg DAILY RADHA Administration PFSH Acute PFSH: Medical History Coronary artery disease Hypertension Surgical History Hx of CABG Family History Other CAD (coronary artery disease) Vitals/I&O/Wt Last Vital Signs Temp 98.4 F 12/22/20 07:22 Pulse 93 12/23/20 06:00 Resp 18 12/23/20 05:59 BP 149/80 12/23/20 04:15 Pulse Ox 92 12/23/20 05:59 12/22/20 12/22/20 12/23/20 14:59 22:59 06:59 Intake Total 1018.333 / 1018.333 Output Total 750 / 750 400 / 1150 Balance 268.333 / 268.333 -400 / -131.667 Physical Exam Narrative: EXAM NARRATIVE: General: alert, NAD HEENT: conj clear, EOMI, PERRL, mmm, Neck: supple, no meningismus Heme: no cervical LAP Pulmonary: Good bilateral air entry Cardiovascular: rrr, nl s1s2, no mrg Abdomen: soft, nt, nd, no r/g, bs+ Extremities: pulses +, no edema, no c/c : no CVA tenderness Skin: intact, no rash MSK: no back or neck pain Neurologic: grossly intact Urinary Catheter Management^: Christianson: Cath Placed During This Visit: yes, but has since been removed by the nurse Reason for Continuing Indwelling Catheter: Accurate Measurement of Urinary Output in Critically Ill Patients Urinary Catheter Date of Insertion: 12/21/20 Urinary Catheter Time of Insertion: 09:45 Date Urinary Catheter Removed: 12/21/20 Time Urinary Catheter Discontinued: 09:40 Data Labs: Other Labs: Laboratory Results WBC 11.3 10^3/uL (4.0 -10.0) H 12/23/20 03:55 RBC 4.46 10^6/uL (4.1 -5.3) 12/23/20 03:55 Hgb 14.3 g/dL (11.7-1 6.6) 12/23/20 03:55 Hct 43.6 % (42.0-52.0 ) 12/23/20 03:55 MCV 97.8 fL (80-94) H 12/23/20 03:55 MCH 32.1 pg (28.0-34. 0) 12/23/20 03:55 MCHC 32.8 g/dL (30.0-3 6.0) 12/23/20 03:55 RDW 14.7 % (12.1-15.1 ) 12/23/20 03:55 Plt Count 199 10^3/cmm (130 -400) 12/23/20 03:55 MPV 10.8 fL (7.4-10.4 ) H 12/23/20 03:55 Neut % (Auto) 91.5 % 12/23/20 03:55 Lymph % (Auto) 5.2 % 12/23/20 03:55 [place] % (Auto) 1.9 % 12/23/20 03:55 Eos % (Auto) 0.6 % 12/23/20 03:55 Baso % (Auto) 0.2 % 12/23/20 03:55 Neut # (Auto) 10.33 10^3/uL (1. 8-7.7) H 12/23/20 03:55 Lymph # (Auto) 0.6 10^3/uL (0.8- 4.8) L 12/23/20 03:55 [place] # (Auto) 0.2 10^3/uL (0.2- 0.9) 12/23/20 03:55 Eos # (Auto) 0.1 10^3/uL (0.0- 0.8) 12/23/20 03:55 Baso # (Auto) 0.0 10^3/uL (0.0- 0.1) 12/23/20 03:55 Nucleated RBC % (a uto) 0 % 12/23/20 03:55 Nucleated RBCs # 0.0 /100WBC 12/23/20 03:55 ESR 24 mm/hr (0-10) H 12/22/20 05:23 Fibrinogen 300 mg/dL (174-49 8) 12/19/20 04:30 D-Dimer 2.58 ug/mIFEU (0- 0.59) H 12/23/20 03:55 Specimen Type Arterial 12/23/20 04:45 Sample Site Radial, right 12/23/20 04:45 ABG pH 7.39 (7.35-7.45) 12/23/20 04:45 ABG pCO2 41.6 mmHg (35-45) 12/23/20 04:45 ABG pO2 57.1 mmHg (80.0-1 00.0) L 12/23/20 04:45 ABG HCO3 25.3 mmol/L (22-2 6) 12/23/20 04:45 ABG O2 Saturation 88.7 12/23/20 04:45 ABG Base Excess 0.2 mmol/L (-2.0- 2.0) 12/23/20 04:45 Nolberto Test Pos 12/23/20 04:45 A-a O2 Gradient 69.4 mmHg (5-10) H 12/23/20 04:45 Hematocrit 45.6 % (42-52) 12/23/20 04:45 Hgb O2 Saturation 87.8 % (95-100) L 12/23/20 04:45 Carboxyhemoglobin 0.4 %THgb (0.4-20 .1) 12/23/20 04:45 Methemoglobin 0.6 % (0.4-1.5) 12/23/20 04:45 Total Hemoglobin 14.9 g/dL (14-18) 12/23/20 04:45 Sodium 139.0 mmol/L (131 -143) 12/23/20 04:45 Potassium 4.2 mmol/L (3.5-5 .0) 12/23/20 04:45 Glucose 197.0 mg/dL (70-1 15) H 12/23/20 04:45 Ionized Calcium 1.2 mmol/L (1.1-1 .4) 12/23/20 04:45 O2 Delivery Device hhfnc 12/23/20 04:45 O2 Liters/Min 40.0 % 12/23/20 04:45 FiO2 90.0 % 12/23/20 04:45 Rubber Goods Inspector Tester ID Hinja 12/23/20 04:45 Sodium 139 mmol/L (136-1 45) 12/23/20 03:55 Potassium 4.2 mmol/L (3.5-5 .1) 12/23/20 03:55 Chloride 106 mmol/L (98-10 7) 12/23/20 03:55 Carbon Dioxide 25 mmol/L (22-29) 12/23/20 03:55 Anion Gap 12.2 (5-19) 12/23/20 03:55 BUN 18 mg/dL (8-23) 12/23/20 03:55 Creatinine 0.6 mg/dL (0.7-1. 2) L 12/23/20 03:55 GFR Calculation Not Reportable 12/23/20 03:55 Glucose 162 mg/dL (65-115 ) H 12/23/20 03:55 Estimat Average Gl ucose 146 12/21/20 04:39 Hemoglobin A1c 6.7 % (4.0-6.0) H 12/21/20 04:39 Calculated Osmolal ity 293 mOsm/kg (285- 295) 12/23/20 03:55 Lactic Acid 1.3 mmol/L (0.5-2 .2) 12/11/20 20:10 Calcium 7.9 mg/dL (8.5-10 .5) L 12/23/20 03:55 Iron 92 ug/dL (59-158) 12/19/20 04:30 TIBC 221 mcg/dl 12/19/20 04:30 % Saturation 41.6 % (20-50) 12/19/20 04:30 Unsat Iron Binding 129 ug/dL (112-34 7) 12/19/20 04:30 Ferritin 2222 ng/mL (30-40 0) H 12/22/20 05:23 Total Bilirubin 0.9 mg/dL (0.15-1 .2) 12/23/20 03:55 AST 133 U/L (0-40) H 12/23/20 03:55 ALT 213 U/L (0-41) H 12/23/20 03:55 Alkaline Phosphata se 125 IU/L (40-130) 12/23/20 03:55 Ammonia 64 umol/L (16-60) H 12/20/20 10:12 Lactate Dehydrogen ase 521 U/L (135-225) H 12/12/20 14:00 Creatine Kinase 81 U/L (39-308) 12/22/20 05:23 Troponin T Gen 5 n g/L 24 ng/L (0-15) H 12/21/20 04:39 C-Reactive Protein 0.6 mg/L (0.0-4.9 ) 12/23/20 03:55 NT-Pro-B Natriuret Pep 585 pg/mL (0-450) H 12/23/20 03:55 Total Protein 5.9 g/dL (6.6-8.7 ) L 12/23/20 03:55 Albumin 3.1 g/dL (3.5-5.2 ) L 12/23/20 03:55 Globulin 2.8 g/dL (1.3-4.6 ) 12/23/20 03:55 Procalcitonin 0.08 ng/mL (0-0.5 ) 12/19/20 04:30 TSH 1.34 uIU/mL (0.27 -4.20) 12/19/20 04:30 Vancomycin Trough 21.6 ug/mL (10-15 ) H 12/19/20 20:47 Impressions Chest CTA 12/11/20 23:32 IMPRESSION: 1. Peripheral scattered areas of interstitial thickening with some subtle questionable areas of honeycombing. Suspect chronic interstitial fibrosis and superimposed atypical infection. 2. No filling defects in the pulmonary arteries to suggest pulmonary emboli. Radiation Dose CTDIVOL = (mGy): DLP = 589.72 (mGy-cm) Chest X-Ray 12/23/20 06:00 IMPRESSION: Interval improvement in pulmonary infiltrates. A&P Assessment and plan (1) Severe protein-energy malnutrition: Status: Acute (2) Respiratory failure with hypoxia: Status: Acute Qualifiers: Chronicity: acute Qualified Code(s): J96.01 - Acute respiratory failure with hypoxia (3) Acute respiratory distress syndrome (ARDS) due to 2019 novel coronavirus: Status: Acute (4) Coronary artery disease: Status: Acute Qualifiers: Coronary Disease-Associated Artery/Lesion type: [place]ominee artery [place] vs. transplanted heart: menominee heart Associated angina: unspecified whether angina present Qualified Code(s): I25.10 - Atherosclerotic heart disease of menominee coronary artery without angina pectoris (5) Abnormal LFTs: Status: Acute #Acute hypoxic respiratory failure secondary to ARDS due to COVID-19 pneumonia #History of CAD s/p stent #Abnormal LFTs likely due to COVID-19 -Currently on 40 L 65% -Chest [id number] infiltrates -Completed 10-day course dexamethasone, Sunday remdesivir, 1 dose Tocilizumab -Continue clinical monitoring and titrate down FiO2 to keep saturations > 90% -ABG today 7.3 9/41/57/20 5/88% saturation on HFNC for 40 l and 90% -Labs and imaging reviewed -Net -7.9 L since admission -Negative Legionella, MRSA, blood cultures, low procalcitonin-DCed all antibiotics -Continue albuterol, budesonide inhalations, incentive spirometry, physical therapy as tolerated, out of bed to chair -GI soft diet feeding with assistance-with aspiration precautions -Tomorrow swallow evaluation by speech therapy and if fails-plan for PEG tube -Worsening LFTs-likely due to [id number] and avoid hepatotoxic medications -On Lovenox 80 every 12 -Sugars moderately controlled, A1c 6.9-placed on scale coverage AC at bedtime -Remeron at bedtime and Cymbalta 30 mg oral daily -On home dose aspirin and metoprolol for CAD Continue clinical monitoring and titrate down FiO2 to target saturations greater than 92%. If continues to improve we will transfer out of ICU to regular floor in 1 to 2 days Consult Attestations Medical Necessity Statement: Acute hypoxic respiratory failure secondary to ARDS due to COVID-19 pneumonia-on high flow nasal cannula Time Spent in Patient Care: Greater than 35 minutes (>than 50% of time spent in counselling and/or direct pt care on unit). Critical Care Time: The high probability of a clinically significant, sudden or life threatening deterioration of the patient's [respiratory, hepatic] system(s) required my full and direct attention, intervention and personal management. The critical care time is as shown. 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 transplanted heart: menominee heart Associated angina: unspecified whether angina present Abnormal LFTs R94.5 Time Spent (min) 45
[2020-12-23] MEDS: ascorbic acid 500 mg Tablet 1000 MG PO ×2 (08:43→17:49)
[2020-12-23] MEDS: aspirin 81 mg EC Tablet PO (08:43)
[2020-12-23] MEDS: pantoprazole DR 40 mg Tablet PO (08:43)
[2020-12-23] MEDS: benzonatate 100 mg Capsule PO ×3 (08:43→21:33)
[2020-12-23] MEDS: duloxetine 30 mg Capsule PO (08:43)
[2020-12-23] MEDS: zinc gluconate 50 mg Tablet PO (08:43)
[2020-12-23] MEDS: metoprolol succinate ER (24 HR) 25 mg Tablet PO (08:43)
[2020-12-23] MEDS: ciprofloxacin 0.3% Op Soln 2.5 mL Btl 1 DROP EYE-BOTH ×3 (08:44→21:33)
[2020-12-23] MEDS: enoxaparin 80 mg/0.8 mL Syringe SUBCUT ×2 (08:44→21:33)
[2020-12-23] MEDS: budesonide 0.5 mg/2 mL Neb INHALATION ×2 (09:04→21:10)
--- NOTE | 2020-12-23 09:08 | PC.CHAP ---
Pastoral Care Encounter/Spiritual Assessment Type of Contact [] Declined steam tank operator visit [] Patient/Family/Request visit [] Outpatient visit [] Follow-up visit [] Physician referral [] Code/Alert [x] Routine visit [] Staff referral [] Actively dying [] Patient sleeping [] Family support [] [] Out of room [] Palliative care [] [x] Receiving care in room [] Pre-surgical visit [] Trauma [] Long length of stay [x] ICU visit [] Other: Relational/Emotional Strength [] Patient feels connected with others/family/visitors/staff [] Distress [] Loneliness/isolation [] Abandonment Spirituality of Patient [] Person of Monica [] Attends Anabaptist of their [place] [] Believes in Prayer [] Reads Bible or Latter-Day materials [] There are Spiritual issues to be addressed [place] Interventions [x] Prayer [x] Active listening [x] Non-anxious presence [x] Spiritual/emotional support [] Crisis/trauma care [] Spiritual counseling [] Bereavement support [] Provided bereavement packet [] Provided Bible/devotional materials [] Provided toy/stuffed animal, coloring book to patient or family member [] Provided Communion [] Anointing/[place] [] Salvation [x] Completed spiritual assessment [] Other: Impact on Illness or Injury [] Angry [] Fearful [] Anxious [] Often cries [] Exhaustion [] Unable to work [] Unable to attend zoroastrian [] Unable to walk/stand [] Unable to read [] Unable to drive [] Unable to eat/drink [] Unable to sleep [] Unable to be with family [] Patient intubated [] Other: Summary patient cleared... steam tank operator allowed to visit.. gave God some praise for healing and strengthening... Time spent with patient 10 min
--- NOTE | 2020-12-23 14:03 | PC.SOCIAL ---
IMM NOT GIVE IMM not given due to patient not d/c in the next 48hrs.
--- NOTE | 2020-12-23 17:29 | PM.PN ---
Subjective Subjective: Interval history: No events overnight. Patient denies any nausea vomiting, headache. Currently on examination he is on 40 L 65% heated high flow saturating 89%. Sitting up in bed having his meals with family at bedside. States he is feeling better. Medications: Reviewed: Yes Vitals/I&O/Wt Last Vital Signs Temp 98.4 F 12/23/20 16:00 Pulse 97 12/23/20 16:42 Resp 18 12/23/20 16:40 BP 149/80 12/23/20 16:00 Pulse Ox 89 L 12/23/20 16:40 12/23/20 12/23/20 12/23/20 06:59 14:59 22:59 Intake Total 30 / 30 Output Total 400 / 1150 700 / 700 Balance -400 / -131.667 -670 / -670 Physical Exam Const: GENERAL APPEARANCE: lethargic ORIENTATION/CONSCIOUSNESS: Yes oriented to person and Yes lethargic HENMT: COMMON NORMALS: normocephalic, atraumatic, hearing grossly normal bilaterally and external ears normal HEAD & SCALP: normocephalic and atraumatic EXTERNAL EAR: Yes external ears normal Eye: COMMON NORMALS: no scleral icterus GENERAL EYE: appearance normal, both eyes and all related structures Neck/C-Spine: COMMON NORMALS: negative for no meningeal signs Chest: COMMONS NORMALS: normal inspection of the chest and normal palpation of entire chest wall CHEST: Yes Symmetrical chest wall rise Resp: OTHER: Diminished air entry bilaterally, coarse breath sounds, bronchial breath sounds bilaterally Cardio: COMMON NORMALS: regular rate, regular rhythm, S1 normal heart sound present, S2 normal heart sound present, No gallops present (Cardio), No murmurs present (Cardio), No rub (Cardio) and Peripheral pulses 2+ throughout RATE: regular rate RHYTHM: regular rhythm HEART SOUNDS: S1 normal heart sound present and S2 normal heart sound present PERIPHERAL PULSES: Peripheral pulses 2+ throughout GI: COMMON NORMALS: Normal to inspection, nondistended, normoactive bowel sounds present, Soft to palpation, non-tender, No hepatosplenomegaly present and no masses AUSCULTATION: Yes normoactive bowel sounds PALPATION: Yes Soft to palpation and Yes No hepatosplenomegaly present RECTAL EXAM: Yes deferred Extremity: COMMON NORMALS: no clubbing, cyanosis or edema and no pedal edema Neuro: COMMON NORMALS: moves all extremities SENSORIUM/ORIENTATION: Yes oriented to person and Yes lethargic MENINGEAL SIGNS: No no meningeal signs and No nuccal rigidity Urinary Catheter Management^: Christianson: Cath Placed During This Visit: yes, but has since been removed by the nurse Reason for Continuing Indwelling Catheter: Accurate Measurement of Urinary Output in Critically Ill Patients Urinary Catheter Date of Insertion: 12/21/20 Urinary Catheter Time of Insertion: 09:45 Date Urinary Catheter Removed: 12/21/20 Time Urinary Catheter Discontinued: 09:40 Data : 12/23/20 03:55 12/23/20 03:55 A&P Assessment and plan (1) Respiratory failure with hypoxia: Status: Acute (2) Pneumonia due to 2019 novel coronavirus: Status: Acute (3) Coronary artery disease: Status: Acute (4) Hypertension: Metoprolol 25 mg extended release daily Status: Acute (5) DVT prophylaxis: Lovenox 40 mg subcu daily Status: Acute (6) Elevated LFTs: Stable to trending down. Hydration. Continue to monitor daily. Status: Acute (7) Acute kidney injury: SHIRAZ likely prerenal has resolved Renal dose medications Repeat BMP Status: Acute (8) Severe protein-energy malnutrition: Status: Acute Additional A&P Information Patient is more than 14 days post positive Covid test. Remove isolation precautions. Hypoxia secondary to COVID-19 pneumonia: Oxygen supplementation keeping saturation over 88%. Patient seems to be a mouth breather so we will switch over to nonrebreather for better oxygen supplementation. Patient has finished course of remdesivir. Post 1 dose of Actemra. Continue dexamethasone to finish a 10-day course. DuoNebs every 6 hour, budesonide twice daily. Vitamin C, zinc. Incentive spirometry and flutter valve for pulmonary toilet when able. Low suspicion of bacterial infection. Pro-Fab negative. Urine Legionella, bacterial antigen negative. Prelim blood negative culture negative. Stop IV antibiotics. We will continue to monitor for fever or leukocytosis. D-dimer elevated. CTA negative for PE. As patient is still requiring high flow continue with full code dose anticoagulation. Most likely patient will require 14 days of anticoagulation post discharge. Because of high oxygen demand we will keep patient as negative as possible. Patient looking clinically dry at present. Documented 7 L negative since admission. Continue D5 half NS at 50 cc/h. Strict input output charting. Daily weights. Altered mental status: Resolved. Most likely ICU delirium versus critical illness. Precedex weaned off. Haldol 0.5 IV every 8 hour as needed, morphine 1 mg every 6 hours as needed. Continue with Remeron 30 mg p.o. at bedtime, Cymbalta 30 mg oral daily in the morning. We will continue to monitor. H/o CAD: Monitor showing acute ST depressions. Troponins within normal limits. No active chest pain. Continue with home dose of aspirin. Continue with metoprolol but started at 25 twice daily. Patient already on full dose Lovenox. For now hold off on ezetimibe and gemfibrozil given transaminitis. Hypertension: Goal blood pressure less than 140/90 mmHg. BP elevated. Will continue to monitor. Continue with metoprolol. Add amlodipine 5 mg oral daily. Nutrition: Severe protien energy malnutrition. Patient is a poor candidate for TPN PPN because that will increase the fluid volume. Patient is a poor candidate for tube feed as that will cause him to get more agitated. We will discuss with family for possible PEG tube placement if does not improve any further after assisted feeding. DVT ppx: lovenox PUD ppx: Protonix 40mg po daily. CODE STATUS full code. Attestations Medical Necessity Statement*: Requires further hospitalization for severe ARDS, severe protein energy malnutrition Time Spent in Patient Care: Greater than 35 minutes (>than 50% of time spent in counselling and/or direct pt care on unit). Coding Level of Care Code Acute Cost Consultant for [facility] Fwd Diagnoses Respiratory failure with hypoxia J96.91 Pneumonia due to 2019 novel coronavirus U07.1; J12.82 Coronary artery disease I25.10 Hypertension I10 DVT prophylaxis Z29.9 Elevated LFTs R79.89 Acute kidney injury N17.9 Severe protein-energy malnutrition E43
--- NOTE | 2020-12-23 17:48 | PC.NUTR ---
Tube feeding recommendations: Contacted Dr. Vallejo regarding nutritional plan. MD stated considering PEG placement and requested TF recs. If tube feeding initiated, recommend: Pulmocare, start at 10 ml/hr, increase by 10 ml/hr q 8 hours to goal of 55 ml/hr, with 150 ml H2O flushes q 4 hours, to provide 1980 kcal, 83 g protein, and 1936 ml H2O. See full RD assessment for further details.
[2020-12-23] MEDS: amlodipine 5 mg Tablet PO (17:49)
[2020-12-23 21:23] LABS: Glucose Point of Care 118 mg/dL (70-110)
[2020-12-23] MEDS: mirtazapine 30 mg Tablet PO (21:33)
[2020-12-24] VITALS (43 sets, daily range): BP systolic 111–145; BP diastolic 72–108; PULSE 90–118; RESP 13–28; TEMP 37–37.6; O2SAT 73–89
[2020-12-24] MEDS: ipratropium-albuterol 3 mL Neb INHALATION ×4 (00:23→20:19)
[2020-12-24 04:17] LABS: Basophils % 0.1 %; Eosinophils # 0.1 10^3/uL (0.0-0.8); Eosinophils % 1.2 %; Hematocrit 43.2 % (42.0-52.0); Hemoglobin 14.1 g/dL (11.7-16.6); Lymphocytes # 0.8 10^3/uL (0.8-4.8); Lymphocytes % 7.9 %; Mean Corpuscular HGB Conc 32.6 g/dL (30.0-36.0); Mean Corpuscular Hemoglobin 32.4 pg (28.0-34.0); Mean Corpuscular Volume 99.3 fL (80-94); Mean Platelet Volume 10.8 fL (7.4-10.4); Monocytes # 0.2 10^3/uL (0.2-0.9); Monocytes % 2.3 %; Neutrophils # 8.48 10^3/uL (1.8-7.7); Nucleated Red Blood Cells % 0 %; Platelet Count 174 10^3/cmm (130-400); Red Blood Count 4.35 10^6/uL (4.1-5.3); Red Cell Distribution Width 15.1 % (12.1-15.1); White Blood Count 9.6 10^3/uL (4.0-10.0)
[2020-12-24 04:49] LABS: Alanine Aminotransferase 218 U/L (0-41); Alkaline Phosphatase 132 IU/L (40-130); Aspartate Amino Transferase 122 U/L (0-40); Blood Urea Nitrogen 25 mg/dL (8-23); C Reactive Protein 0.3 mg/L (0.0-4.9); Calcium 8.1 mg/dL (8.5-10.5); Carbon Dioxide 24 mmol/L (22-29); Chloride 106 mmol/L (98-107); Globulin 2.8 g/dL (1.3-4.6); Glucose 100 mg/dL (65-115); NT Pro B Type Natriuretic Pept 201 pg/mL (0-450); Osmolality Calculated 290 mOsm/kg (285-295); Sodium 138 mmol/L (136-145); Total Bilirubin 0.9 mg/dL (0.15-1.2); Total Protein 5.8 g/dL (6.6-8.7)
[2020-12-24 05:19] LABS: Erythrocyte Sedimentation Rate 26 mm/hr (0-10)
--- NOTE | 2020-12-24 06:40 | PC.NURSE ---
Patient recently maxed on highflow. Patient switched to non-rebreather due to mouth breathing. Dr. Crouch called and notified, ordered cxr and place patient on bipap. RT notified.
[2020-12-24] MEDS: budesonide 0.5 mg/2 mL Neb INHALATION ×2 (08:53→20:19)
[2020-12-24] MEDS: ascorbic acid 500 mg Tablet 1000 MG PO (10:38)
[2020-12-24] MEDS: benzonatate 100 mg Capsule PO ×3 (10:38→21:42)
[2020-12-24] MEDS: pantoprazole DR 40 mg Tablet PO (10:39)
[2020-12-24] MEDS: aspirin 81 mg EC Tablet PO (10:39)
[2020-12-24] MEDS: amlodipine 5 mg Tablet PO (10:39)
[2020-12-24] MEDS: zinc gluconate 50 mg Tablet PO (10:39)
[2020-12-24] MEDS: metoprolol succinate ER (24 HR) 25 mg Tablet PO (10:39)
[2020-12-24] MEDS: duloxetine 30 mg Capsule PO (10:39)
[2020-12-24] MEDS: enoxaparin 80 mg/0.8 mL Syringe SUBCUT ×2 (10:40→21:42)
[2020-12-24] MEDS: ciprofloxacin 0.3% Op Soln 2.5 mL Btl 1 DROP EYE-BOTH ×3 (10:50→18:13)
[2020-12-24 11:47] LABS: Glucose Point of Care 107 mg/dL (70-110)
[2020-12-24 11:59] LABS: Glucose Point of Care 134 mg/dL (70-110)
--- NOTE | 2020-12-24 14:15 | PC.NURSE ---
preparing to transfer pt via bed to [facility] with all belongings including glasses. Patient ask granddaughter to take his wallet home with her this am and she took it. Pt on o2 during transfer.
[2020-12-24] MEDS: dextrose 5%-sod chloride 0.9% 1,000 ML 50 ML IV (15:49)
--- NOTE | 2020-12-24 16:22 | PM.PN ---
Subjective Subjective: Interval history: Overnight patient had evidence of desaturation. At that time he was heated high flow high oxygen supplementation if any need to be placed on BiPAP though he denied. Goals of care discussion was done with the patient and his sons and they decided to be DNR/DNI. Currently patient is on high flow nasal cannula and oxygen mask to maintain his saturation in high 80s. Patient states he does not have any appetite. Denies any nausea, vomiting, headache. Is lethargic. Has remained afebrile and hemodynamically stable. Medications: Reviewed: Yes Vitals/I&O/Wt Last Vital Signs Temp 99 F 12/24/20 15:48 Pulse 98 12/24/20 15:48 Resp 24 H 12/24/20 15:48 BP 123/76 12/24/20 15:48 Pulse Ox 89 L 12/24/20 15:48 12/24/20 12/24/20 12/24/20 06:59 14:59 22:59 Intake Total 120 / 120 Output Total 350 / 1500 Balance -350 / 0 120 / 120 Physical Exam Const: GENERAL APPEARANCE: lethargic ORIENTATION/CONSCIOUSNESS: Yes oriented to person and Yes lethargic HENMT: COMMON NORMALS: normocephalic, atraumatic, hearing grossly normal bilaterally and external ears normal HEAD & SCALP: normocephalic and atraumatic EXTERNAL EAR: Yes external ears normal Eye: COMMON NORMALS: no scleral icterus GENERAL EYE: appearance normal, both eyes and all related structures Neck/C-Spine: COMMON NORMALS: negative for no meningeal signs Chest: COMMONS NORMALS: normal inspection of the chest and normal palpation of entire chest wall CHEST: Yes Symmetrical chest wall rise Resp: OTHER: Diminished air entry bilaterally, coarse breath sounds, bronchial breath sounds bilaterally Cardio: COMMON NORMALS: regular rate, regular rhythm, S1 normal heart sound present, S2 normal heart sound present, No gallops present (Cardio), No murmurs present (Cardio), No rub (Cardio) and Peripheral pulses 2+ throughout RATE: regular rate RHYTHM: regular rhythm HEART SOUNDS: S1 normal heart sound present and S2 normal heart sound present PERIPHERAL PULSES: Peripheral pulses 2+ throughout GI: COMMON NORMALS: Normal to inspection, nondistended, normoactive bowel sounds present, Soft to palpation, non-tender, No hepatosplenomegaly present and no masses AUSCULTATION: Yes normoactive bowel sounds PALPATION: Yes Soft to palpation and Yes No hepatosplenomegaly present RECTAL EXAM: Yes deferred Extremity: COMMON NORMALS: no clubbing, cyanosis or edema and no pedal edema Neuro: COMMON NORMALS: moves all extremities SENSORIUM/ORIENTATION: Yes oriented to person and Yes lethargic MENINGEAL SIGNS: No no meningeal signs and No nuccal rigidity Urinary Catheter Management^: Christianson: Cath Placed During This Visit: yes, but has since been removed by the nurse Reason for Continuing Indwelling Catheter: Accurate Measurement of Urinary Output in Critically Ill Patients Urinary Catheter Date of Insertion: 12/21/20 Urinary Catheter Time of Insertion: 09:45 Date Urinary Catheter Removed: 12/21/20 Time Urinary Catheter Discontinued: 09:40 Data : 12/24/20 03:32 12/24/20 03:32 Micro: Microbiology 12/19/20 04:30 Blood Culture - Final Blood NO GROWTH AFTER 5 DAYS 12/19/20 04:30 Blood Culture - Final Blood NO GROWTH AFTER 5 DAYS A&P Assessment and plan (1) Respiratory failure with hypoxia: Status: Acute Qualifiers: Chronicity: acute Qualified Code(s): J96.01 - Acute respiratory failure with hypoxia (2) Pneumonia due to 2019 novel coronavirus: Status: Acute (3) Coronary artery disease: Status: Acute Qualifiers: Coronary Disease-Associated Artery/Lesion type: [place] artery [place] vs. transplanted heart: [place] heart Associated angina: unspecified whether angina present Qualified Code(s): I25.10 - Atherosclerotic heart disease of [place] coronary artery without angina pectoris (4) Hypertension: Metoprolol 25 mg extended release daily Status: Acute (5) DVT prophylaxis: Lovenox 40 mg subcu daily Status: Acute (6) Elevated LFTs: Stable to trending down. Hydration. Continue to monitor daily. Status: Acute (7) Acute kidney injury: SHIRAZ likely prerenal has resolved Renal dose medications Repeat BMP Status: Acute (8) Severe protein-energy malnutrition: Status: Acute Additional A&P Information Patient is more than 14 days post positive Covid test. Remove isolation precautions. ARDS secondary to COVID-19 pneumonia: Oxygen supplementation keeping saturation over 88%. Patient seems to be a mouth breather so we will switch over to nonrebreather for better oxygen supplementation. Patient has finished course of remdesivir. Post 1 dose of Actemra. Continue dexamethasone to finish a 10-day course. DuoNebs every 6 hour, budesonide twice daily. Vitamin C, zinc. Incentive spirometry and flutter valve for pulmonary toilet when able. Low suspicion of bacterial infection. Pro-Fab negative. Urine Legionella, bacterial antigen negative. Prelim blood negative culture negative. Has remained afebrile, without any leukocytosis or hemodynamic instability off antibiotics. D-dimer elevated. CTA negative for PE. As patient is still requiring high flow continue with full code dose anticoagulation. Most likely patient will require 14 days of anticoagulation post discharge. Because of high oxygen demand we will keep patient as negative as possible. Patient looking clinically dry at present. Documented 7 L negative since admission. Continue D5 NS at 50 cc/h. Strict input output charting. Daily weights. Altered mental status: Resolved. Most likely ICU delirium versus critical illness. Precedex weaned off. Haldol 0.5 IV every 8 hour as needed, morphine 1 mg every 6 hours as needed. Continue with Remeron 30 mg p.o. at bedtime, Cymbalta 30 mg oral daily in the morning. We will continue to monitor. H/o CAD: Monitor showing acute ST depressions. Troponins within normal limits. No active chest pain. Continue with home dose of aspirin. Continue with metoprolol but started at 25 twice daily. Patient already on full dose Lovenox. For now hold off on ezetimibe and gemfibrozil given transaminitis. Hypertension: Goal blood pressure less than 140/90 mmHg. BP elevated. Will continue to monitor. Continue with metoprolol and amlodipine 5 mg oral daily. Nutrition: Severe protien energy malnutrition. Patient is a poor candidate for TPN PPN because that will increase the fluid volume. Patient is a poor candidate for tube feed as that will cause him to get more agitated. We will discuss with family for possible PEG tube placement if does not improve any further after assisted feeding. Appreciate pulmonology recommendations. Given high amount of oxygen supplementation requirement to maintain his saturation in high 80s, prolonged hospitalization in which patient is getting worse, advanced age, other comorbidities further goals of care discussion were done with patient's son Mr. Lucio Hernandez over the phone. We discussed about comfort care measures as patient is refusing BiPAP, is on extremely high oxygen supplementation to maintain saturation in high 80s. Son states he would want to discuss with his brother Ilia before giving any answer and would call us back. DVT ppx: lovenox PUD ppx: Protonix 40mg po daily. CODE STATUS: DNR/DNI. Transfer out of ICU to [facility]. Attestations Medical Necessity Statement*: Patient requires further hospitalization for management of ARDS secondary to COVID-19 pneumonia requiring high oxygen supplementation. Critical Care Time: The high probability of a clinically significant, sudden or life threatening deterioration of the patient's [pulmonology, goals of care] system(s) required my full and direct attention, intervention and personal management. The critical care time is as shown. This time is in addition to time spent performing any reported procedures but includes the following: [x] Data and vital sign review and interpretation [x] Patient assessment, examination and intervention [x] Documentation [x] Medication orders and management Critical Care Time (min): 90 Coding Level of Care Code Acute Pin Inserter Regulator for [facility] Fwd Diagnoses Respiratory failure with hypoxia J96.01 Chronicity: acute Pneumonia due to 2019 novel coronavirus U07.1; J12.82 Coronary artery disease I25.10 Coronary Disease-Associated Artery/Lesion type: [place] artery [place] vs. transplanted heart: [place] heart Associated angina: unspecified whether angina present Hypertension I10 DVT prophylaxis Z29.9 Elevated LFTs R79.89 Acute kidney injury N17.9 Severe protein-energy malnutrition E43
[2020-12-24 18:21] LABS: Glucose Point of Care 118 mg/dL (70-110)
--- NOTE | 2020-12-24 19:48 | P.PN_ITS ---
Subjective Subjective: Interval history: overnight pt refused BIPAP or HFNC On ventimask saturating low 80s on 15L wanted DNR/DNI - notified family as well labs and imaging reviewed Medications: Reviewed: Yes Vitals/I&O/Wt Last Vital Signs Temp 99 F 12/24/20 15:48 Pulse 98 12/24/20 15:48 Resp 24 H 12/24/20 15:48 BP 123/76 12/24/20 15:48 Pulse Ox 89 L 12/24/20 15:48 12/24/20 12/24/20 12/24/20 06:59 14:59 22:59 Intake Total 120 / 120 Output Total 350 / 1500 350 / 350 Balance -350 / 0 120 / 120 -350 / -230 Physical Exam Narrative: EXAM NARRATIVE: General: appeared drowsy and worn out, in mild to moderate resp distresss - HEENT: conj clear, EOMI, PERRL, mmm, Neck: supple, no meningismus Heme: no cervical LAP Pulmonary: Good bilateral air entry Cardiovascular: rrr, nl s1s2, no mrg Abdomen: soft, nt, nd, no r/g, bs+ Extremities: pulses +, no edema, no c/c : no CVA tenderness Skin: intact, no rash MSK: no back or neck pain Neurologic: grossly intact Urinary Catheter Management^: Christianson: Cath Placed During This Visit: yes, but has since been removed by the nurse Reason for Continuing Indwelling Catheter: Other Urinary Catheter Date of Insertion: 12/21/20 Urinary Catheter Time of Insertion: 09:45 Date Urinary Catheter Removed: 12/21/20 Time Urinary Catheter Discontinued: 09:40 Data : 12/24/20 03:32 12/24/20 03:32 Other Labs: Laboratory Results WBC 9.6 10^3/uL (4.0-10.0) 12/24/20 03:32 RBC 4.35 10^6/uL (4.1-5.3) 12/24/20 03:32 Hgb 14.1 g/dL (11.7-16.6) 12/24/20 03:32 Hct 43.2 % (42.0-52.0) 12/24/20 03:32 MCV 99.3 fL (80-94) H 12/24/20 03:32 MCH 32.4 pg (28.0-34.0) 12/24/20 03:32 MCHC 32.6 g/dL (30.0-36.0) 12/24/20 03:32 RDW 15.1 % (12.1-15.1) 12/24/20 03:32 Plt Count 174 10^3/cmm (130-400) 12/24/20 03:32 MPV 10.8 fL (7.4-10.4) H 12/24/20 03:32 Neut % (Auto) 88.0 % 12/24/20 03:32 Lymph % (Auto) 7.9 % 12/24/20 03:32 [place] % (Auto) 2.3 % 12/24/20 03:32 Eos % (Auto) 1.2 % 12/24/20 03:32 Baso % (Auto) 0.1 % 12/24/20 03:32 Neut # (Auto) 8.48 10^3/uL (1.8-7.7) H 12/24/20 03:32 Lymph # (Auto) 0.8 10^3/uL (0.8-4.8) 12/24/20 03:32 [place] # (Auto) 0.2 10^3/uL (0.2-0.9) 12/24/20 03:32 Eos # (Auto) 0.1 10^3/uL (0.0-0.8) 12/24/20 03:32 Baso # (Auto) 0.0 10^3/uL (0.0-0.1) 12/24/20 03:32 Nucleated RBC % (auto) 0 % 12/24/20 03:32 Nucleated RBCs # 0.0 /100WBC 12/24/20 03:32 ESR 26 mm/hr (0-10) H 12/24/20 03:32 Fibrinogen 300 mg/dL (174-498) 12/19/20 04:30 D-Dimer 2.58 ug/mIFEU (0-0.59) H 12/23/20 03:55 Specimen Type Arterial 12/23/20 04:45 Sample Site Radial, right 12/23/20 04:45 ABG pH 7.39 (7.35-7.45) 12/23/20 04:45 ABG pCO2 41.6 mmHg (35-45) 12/23/20 04:45 ABG pO2 57.1 mmHg (80.0-100.0) L 12/23/20 04:45 ABG HCO3 25.3 mmol/L (22-26) 12/23/20 04:45 ABG O2 Saturation 88.7 12/23/20 04:45 ABG Base Excess 0.2 mmol/L (-2.0-2.0) 12/23/20 04:45 Nolberto Test Pos 12/23/20 04:45 A-a O2 Gradient 69.4 mmHg (5-10) H 12/23/20 04:45 Hematocrit 45.6 % (42-52) 12/23/20 04:45 Hgb O2 Saturation 87.8 % (95-100) L 12/23/20 04:45 Carboxyhemoglobin 0.4 %THgb (0.4-20.1) 12/23/20 04:45 Methemoglobin 0.6 % (0.4-1.5) 12/23/20 04:45 Total Hemoglobin 14.9 g/dL (14-18) 12/23/20 04:45 Sodium 139.0 mmol/L (131-143) 12/23/20 04:45 Potassium 4.2 mmol/L (3.5-5.0) 12/23/20 04:45 Glucose 197.0 mg/dL (70-115) H 12/23/20 04:45 Ionized Calcium 1.2 mmol/L (1.1-1.4) 12/23/20 04:45 O2 Delivery Device [email or web address] 12/23/20 04:45 O2 Liters/Min 40.0 % 12/23/20 04:45 FiO2 90.0 % 12/23/20 04:45 Software Writer ID Hinja 12/23/20 04:45 Sodium 138 mmol/L (136-145) 12/24/20 03:32 Potassium 4.0 mmol/L (3.5-5.1) 12/24/20 03:32 Chloride 106 mmol/L (98-107) 12/24/20 03:32 Carbon Dioxide 24 mmol/L (22-29) 12/24/20 03:32 Anion Gap 12.0 (5-19) 12/24/20 03:32 BUN 25 mg/dL (8-23) H 12/24/20 03:32 Creatinine 0.6 mg/dL (0.7-1.2) L 12/24/20 03:32 GFR Calculation Not Reportable 12/24/20 03:32 Glucose 100 mg/dL (65-115) 12/24/20 03:32 POC Glucose 159 mg/dL (70-110) H 12/24/20 20:33 Estimat Average Glucose 146 12/21/20 04:39 Hemoglobin A1c 6.7 % (4.0-6.0) H 12/21/20 04:39 Calculated Osmolality 290 mOsm/kg (285-295) 12/24/20 03:32 Lactic Acid 1.3 mmol/L (0.5-2.2) 12/11/20 20:10 Calcium 8.1 mg/dL (8.5-10.5) L 12/24/20 03:32 Iron 92 ug/dL (59-158) 12/19/20 04:30 TIBC 221 mcg/dl 12/19/20 04:30 % Saturation 41.6 % (20-50) 12/19/20 04:30 Unsat Iron Binding 129 ug/dL (112-347) 12/19/20 04:30 Ferritin 2222 ng/mL (30-400) H 12/22/20 05:23 Total Bilirubin 0.9 mg/dL (0.15-1.2) 12/24/20 03:32 AST 122 U/L (0-40) H 12/24/20 03:32 ALT 218 U/L (0-41) H 12/24/20 03:32 Alkaline Phosphatase 132 IU/L (40-130) H 12/24/20 03:32 Ammonia 64 umol/L (16-60) H 12/20/20 10:12 Lactate Dehydrogenase 521 U/L (135-225) H 12/12/20 14:00 Creatine Kinase 81 U/L (39-308) 12/22/20 05:23 Troponin T Gen 5 ng/L 24 ng/L (0-15) H 12/21/20 04:39 C-Reactive Protein 0.3 mg/L (0.0-4.9) 12/24/20 03:32 NT-Pro-B Natriuret Pep 201 pg/mL (0-450) 12/24/20 03:32 Total Protein 5.8 g/dL (6.6-8.7) L 12/24/20 03:32 Albumin 3.0 g/dL (3.5-5.2) L 12/24/20 03:32 Globulin 2.8 g/dL (1.3-4.6) 12/24/20 03:32 Procalcitonin 0.08 ng/mL (0-0.5) 12/19/20 04:30 TSH 1.34 uIU/mL (0.27-4.20) 12/19/20 04:30 Vancomycin Trough 21.6 ug/mL (10-15) H 12/19/20 20:47 Impressions Chest CTA 12/11/20 23:32 IMPRESSION: 1. Peripheral scattered areas of interstitial thickening with some subtle questionable areas of honeycombing. Suspect chronic interstitial fibrosis and superimposed atypical infection. 2. No filling defects in the pulmonary arteries to suggest pulmonary emboli. Radiation Dose CTDIVOL = (mGy): DLP = 589.72 (mGy-cm) Chest X-Ray 12/23/20 06:00 IMPRESSION: Interval improvement in pulmonary infiltrates. Micro: Microbiology 12/19/20 04:30 Blood Culture - Final Blood NO GROWTH AFTER 5 DAYS 12/19/20 04:30 Blood Culture - Final Blood NO GROWTH AFTER 5 DAYS A&P Assessment and plan (1) Severe protein-energy malnutrition: Status: Acute (2) Respiratory failure with hypoxia: Status: Acute Qualifiers: Chronicity: acute Qualified Code(s): J96.01 - Acute respiratory failure with hypoxia (3) Acute respiratory distress syndrome (ARDS) due to 2019 novel coronavirus: Status: Acute (4) Coronary artery disease: Status: Acute Qualifiers: Coronary Disease-Associated Artery/Lesion type: [place] artery [place] vs. transplanted heart: [place] heart Associated angina: unspecified whether angina present Qualified Code(s): I25.10 - Atherosclerotic heart disease of [place] coronary artery without angina pectoris (5) Abnormal LFTs: Status: Acute #Acute hypoxic respiratory failure secondary to ARDS due to COVID-19 pneumonia #History of CAD s/p stent #Abnormal LFTs likely due to COVID-19 -Currently on 15 liter NRB; was refusing bIPAP and HFNC; even on HFNC 40L 100% saturating low-mid 80s -previous Chest [id number]-[id number] infiltrates -Completed 10-day course dexamethasone, 5 day remdesivir, 1 dose Tocilizumab -Continue clinical monitoring and titrate down FiO2 to keep saturations > 90% -ABG yesterday 7.3 9/41/57/20 5/88% saturation on HFNC for 40 l and 90% -Labs and imaging reviewed -Net -7.9 L since admission -Negative Legionella, MRSA, blood cultures, low procalcitonin-DCed all antibiotics -Continue albuterol, budesonide inhalations, incentive spirometry, physical therapy as tolerated, out of bed to chair -GI soft diet feeding with assistance-with aspiration precaution -Worsening LFTs-likely due to [id number] and avoid hepatotoxic medications -On Lovenox 80 every 12 -Sugars moderately controlled, A1c 6.9-placed on scale coverage AC at bedtime -Remeron at bedtime and Cymbalta 30 mg oral daily -On home dose aspirin and metoprolol for CAD - DNR/DNI - Prognosis - poor - Transfer out of ICU Continue clinical monitoring and titrate down FiO2 to target saturations greater than 92%. pt saturating low to mid 80s even on extremely high FIO2 and he refuses HFNC and BiPAP at times - wanted DNR/DNI and wanted to be comfortable disucssed with patients son that he would want to continue current care for now and will need to discuss with his brother and the patient himself about further goals of care like comfort measures. Attestations Medical Necessity Statement*: Patient requires further hospitalization for m anagement of ARDS secondary to COVID-19 pneumonia requiring high oxygen supplementation. Critical Care Time: The high probability of a clinically significant, sudden or life threatening deterioration of the patient's [pulmonology, goals of care] system(s) required my full and direct attention, intervention and personal management. The critical care time is as shown. This time is in addition to time spent performing any reported procedures but includes the following: [x] Data and vital sign review and interpretation [x] Patient assessment, examination and intervention [x] Documentation [x] Medication orders and management Critical Care Time (min): 90 Coding Level of Care Code Acute Swimming Professor for [facility] Fwd Diagnoses Severe protein-energy malnutrition E43 Respiratory failure with hypoxia J96.01 Chronicity: acute Acute respiratory distress syndrome (ARDS) due to 2019 novel coronavirus U07.1; J80 Coronary artery disease I25.10 Coronary Disease-Associated Artery/Lesion type: [place] artery [place] vs. transplanted heart: [place] heart Associated angina: unspecified whether angina present Abnormal LFTs R94.5
[2020-12-24 20:43] LABS: Glucose Point of Care 159 mg/dL (70-110)
[2020-12-24] MEDS: mirtazapine 30 mg Tablet PO (21:42)
[2020-12-25] VITALS (18 sets, daily range): BP systolic 119–148; BP diastolic 77–89; PULSE 79–109; RESP 17–24; TEMP 36.8–37.4; O2SAT 80–93
[2020-12-25] MEDS: ipratropium-albuterol 3 mL Neb INHALATION ×5 (00:05→22:12)
[2020-12-25] MEDS: morphine 4 mg/mL SDV 1 mL 1 MG IVP ×4 (00:55→20:56)
[2020-12-25] MEDS: ALPRAZolam 0.5 mg Tablet 0.25 MG PO (04:08)
--- NOTE | 2020-12-25 06:00 | XRR_ITS ---
PROCEDURE INFORMATION: Exam: XR Chest Exam date and time: 12/25/2020 6:00 AM Age: 80 years old Clinical indication: Cough; Additional info: Covid TECHNIQUE: Imaging protocol: XR of the chest. Views: 1 view. COMPARISON: CR XR chest 1V portable [id number] 12/23/2020 6:27 AM FINDINGS: Lungs: Bilateral pulmonary opacities most prominent in the mid to lower lung [place], worsened when compared to the prior study. Pleural spaces: Costophrenic angles are obscured and pleural effusions cannot be excluded. Heart/Mediastinum: Heart border is obscured. Bones/joints: There are posterior sternotomy changes and postoperative changes overlying the mediastinum. XR/XR chest 1V portable [id number] IMPRESSION: Patchy bilateral pulmonary infiltrates have worsened when compared to the prior study.
[2020-12-25] MEDS: morphine 4 mg/mL SDV 1 mL 2 MG IVP (06:02)
[2020-12-25 06:33] LABS: Glucose Point of Care 120 mg/dL (70-110)
[2020-12-25] MEDS: budesonide 0.5 mg/2 mL Neb INHALATION ×2 (08:43→22:12)
[2020-12-25] MEDS: enoxaparin 80 mg/0.8 mL Syringe SUBCUT ×2 (08:50→21:14)
[2020-12-25] MEDS: duloxetine 30 mg Capsule PO (08:50)
[2020-12-25] MEDS: amlodipine 5 mg Tablet PO (08:50)
[2020-12-25] MEDS: metoprolol succinate ER (24 HR) 25 mg Tablet PO (08:50)
[2020-12-25] MEDS: pantoprazole DR 40 mg Tablet PO (08:50)
[2020-12-25] MEDS: ascorbic acid 500 mg Tablet 1000 MG PO (08:50)
[2020-12-25] MEDS: aspirin 81 mg EC Tablet PO (08:50)
[2020-12-25] MEDS: zinc gluconate 50 mg Tablet PO (08:50)
[2020-12-25] MEDS: benzonatate 100 mg Capsule PO ×2 (08:50→21:13)
[2020-12-25] MEDS: ciprofloxacin 0.3% Op Soln 2.5 mL Btl 1 DROP EYE-BOTH ×2 (08:59→21:14)
[2020-12-25 10:31] LABS: Glucose Point of Care 209 mg/dL (70-110)
[2020-12-25] MEDS: dextrose 5%-sod chloride 0.9% 1,000 ML 50 ML IV (11:06)
[2020-12-25 14:14] LABS: NT Pro B Type Natriuretic Pept 66 pg/mL (0-450)
--- NOTE | 2020-12-25 14:45 | PC.SOCIAL ---
IMM Updated Updated pt's son on Pg 2 IMM. No questions voiced. Provided pt/son a copy. Initialed, dated, & timed copy in chart.
--- NOTE | 2020-12-25 15:38 | P.PN_ITS ---
Subjective Subjective: Interval history: Overnight patient has remained critically ill. Currently he is on 15 L nonrebreather and 15 L 96% FiO2 heated high flow saturating in low 80s to high 70s. Patient is tired appearing, awake. Family at bedside. Has remained hemodynamically stable and afebrile. Has had multiple goals of care discussion with the family including son Mr. Valdes, Mr. Morillo and granddaughter including a family meeting today. We discussed that patient is currently on extremely high amount of oxygen supplementation for last 1 week with poor oral intake and not able to maintain his saturation, not able to tolerate BiPAP family still wants to continue with current medical management. They state they are not ready for comfort care yet. We did decide that he will not have any further escalation of care including BiPAP ventilation or mechanical ventilation. Medications: Reviewed: Yes Vitals/I&O/Wt Last Vital Signs Temp 98.4 F 12/25/20 11:39 Pulse 97 12/25/20 15:32 Resp 21 H 12/25/20 15:32 BP 119/77 12/25/20 11:39 Pulse Ox 82 L 12/25/20 15:32 12/25/20 12/25/20 12/25/20 06:59 14:59 22:59 Intake Total 1144.167 / 1144.167 Output Total 350 / 700 Balance -350 / -340 1144.167 / 1144.167 Physical Exam Const: GENERAL APPEARANCE: lethargic ORIENTATION/CONSCIOUSNESS: Yes oriented to person and Yes lethargic HENMT: COMMON NORMALS: normocephalic, atraumatic, hearing grossly normal bilaterally and external ears normal HEAD & SCALP: normocephalic and atraumatic EXTERNAL EAR: Yes external ears normal Eye: COMMON NORMALS: no scleral icterus GENERAL EYE: appearance normal, b oth eyes and all related structures Neck/C-Spine: COMMON NORMALS: negative for no meningeal signs Chest: COMMONS NORMALS: normal inspection of the chest and normal palpation of entire chest wall CHEST: Yes Symmetrical chest wall rise Resp: OTHER: Diminished air entry bilaterally, coarse breath sounds, bronchial breath sounds bilaterally Cardio: COMMON NORMALS: regular rate, regular rhythm, S1 normal heart sound present, S2 normal heart sound present, No gallops present (Cardio), No murmurs present (Cardio), No rub (Cardio) and Peripheral pulses 2+ throughout RATE: regular rate RHYTHM: regular rhythm HEART SOUNDS: S1 normal heart sound present and S2 normal heart sound present PERIPHERAL PULSES: Peripheral pulses 2+ throughout GI: COMMON NORMALS: Normal to inspection, nondistended, normoactive bowel sounds present, Soft to palpation, non-tender, No hepatosplenomegaly present and no masses AUSCULTATION: Yes normoactive bowel sounds PALPATION: Yes Soft to palpation and Yes No hepatosplenomegaly present RECTAL EXAM: Yes deferred Extremity: COMMON NORMALS: no clubbing, cyanosis or edema and no pedal edema Neuro: COMMON NORMALS: moves all extremities SENSORIUM/ORIENTATION: Yes oriented to person and Yes lethargic MENINGEAL SIGNS: No no meningeal signs and No nuccal rigidity Urinary Catheter Management^: Christianson: Cath Placed During This Visit: yes, but has since been removed by the nurse Reason for Continuing Indwelling Catheter: Other Urinary Catheter Date of Insertion: 12/21/20 Urinary Catheter Time of Insertion: 09:45 Date Urinary Catheter Removed: 12/21/20 Time Urinary Catheter Discontinued: 09:40 Data : 12/24/20 03:32 12/24/20 03:32 Micro: Microbiology 12/19/20 04:30 Blood Culture - Final Blood NO GROWTH AFTER 5 DAYS 12/19/20 04:30 Blood Culture - Final Blood NO GROWTH AFTER 5 DAYS A&P Assessment and plan (1) Respiratory failure with hypoxia: Status: Acute Qualifiers: Chronicity: acute Qualified Code(s): J96.01 - Acute respiratory failure with hypoxia (2) Pneumonia due to 2019 novel coronavirus: Status: Acute (3) Coronary artery disease: Status: Acute Qualifiers: Coronary Disease-Associated Artery/Lesion type: [place] artery [place] vs. transplanted heart: [place] heart Associated angina: unspecified whether angina present Qualified Code(s): I25.10 - Atherosclerotic heart disease of [place] coronary artery without angina pectoris (4) Hypertension: Metoprolol 25 mg extended release daily Status: Acute (5) DVT prophylaxis: Lovenox 40 mg subcu daily Status: Acute (6) Elevated LFTs: Stable to trending down. Hydration. Continue to monitor daily. Status: Acute (7) Acute kidney injury: SHIRAZ likely prerenal has resolved Renal dose medications Repeat BMP Status: Acute (8) Severe protein-energy malnutrition: Status: Acute Additional A&P Information Patient is more than 14 days post positive Covid test. Remove isolation precautions. ARDS secondary to COVID-19 pneumonia: Oxygen supplementation keeping saturation over 88%. Patient seems to be a mouth breather so we will switch over to nonrebreather for better oxygen supplementation. Patient has finished course of remdesivir. Post 1 dose of Actemra. Continue dexamethasone to finish a 10-day course. DuoNebs every 6 hour, budesonide twice daily. Vitamin C, zinc. Incentive spirometry and flutter valve for pulmonary toilet when able. Low suspicion of bacterial infection. Pro-Fab negative. Urine Legionella, bacterial antigen negative. Prelim blood negative culture negative. Has remained afebrile, without any leukocytosis or hemodynamic instability off antibiotics. D-dimer elevated. CTA negative for PE. As patient is still requiring high flow continue with full code dose anticoagulation. Most likely patient will require 14 days of anticoagulation post discharge. Because of high oxygen demand we will keep patient as negative as possible. Patient looking clinically dry at present. Documented 7 L negative since admission. Patient with poor to no oral intake. Continue D5 NS at 50 cc/h. Strict input output charting. Daily weights. Morphine 1 mg every 4 hours as needed. Altered mental status: Resolved. Haldol 0.5 IV every 8 hour as needed, morphine 1 mg every 6 hours as needed. Continue with Remeron 30 mg p.o. at bedtime, Cymbalta 30 mg oral daily in the morning. We will continue to monitor. H/o CAD: Monitor showing acute ST depressions. Troponins within normal limits. No active chest pain. Continue with home dose of aspirin. Continue with metoprolol but started at 25 twice daily. Patient already on full dose Lovenox. For now hold off on ezetimibe and gemfibrozil given transaminitis. Hypertension: Goal blood pressure less than 140/90 mmHg. BP elevated. Will continue to monitor. Continue with metoprolol and amlodipine 5 mg oral daily. Nutrition: Severe protien energy malnutrition. Patient is a poor candidate for TPN PPN because that will increase the fluid volume. Patient is a poor candidate for tube feed as that will cause him to get more agitated. We will discuss with family for possible PEG tube placement if does not improve any further after assisted feeding. Appreciate pulmonology recommendations. Patient is critically sick. Requiring high oxygen supplementation to maintain saturation in high 70s to low 80s. Even after multiple goals of care discussion with the family patient for now is DNR/DNI without any escalation of care. DVT ppx: lovenox PUD ppx: Protonix 40mg po daily. CODE STATUS: DNR/DNI. Dysphagia 1 pur?ed diet. Attestations Medical Necessity Statement*: Patient requires further hospitalization for management of severe ARDS due to COVID-19 pneumonia requiring high oxygen supplementation to maintain saturation/. Time Spent in Patient Care: Greater than 35 minutes (>than 50% of time spent in counselling and/or direct pt care on unit) . Coding Level of Care Code Acute [employer] Specialist for Jose Fwkarely Diagnoses Respiratory failure with hypoxia J96.01 Chronicity: acute Pneumonia due to 2019 novel coronavirus U07.1; J12.82 Coronary artery disease I25.10 Coronary Disease-Associated Artery/Lesion type: [place] artery [place] vs. transplanted heart: [place] heart Associated angina: unspecified whether angina present Hypertension I10 DVT prophylaxis Z29.9 Elevated LFTs R79.89 Acute kidney injury N17.9 Severe protein-energy malnutrition E43
[2020-12-25 17:14] LABS: Glucose Point of Care 130 mg/dL (70-110)
--- NOTE | 2020-12-25 17:21 | PC.PT ---
Per nurse and Dr. Vallejo, pt is no longer appropriate for PT based on poor health condition. D/C PT
[2020-12-25 20:47] LABS: Glucose Point of Care 153 mg/dL (70-110)
[2020-12-25] MEDS: mirtazapine 30 mg Tablet PO (21:14)
[2020-12-26] VITALS: BP 124/77; PULSE 101; RESP 17; TEMP 37; O2SAT 77
[2020-12-26 00:13] VITALS: RESP 20
[2020-12-26] MEDS: morphine 4 mg/mL SDV 1 mL 1 MG IVP (00:13)
[2020-12-26 02:00] VITALS: RESP 25; O2SAT 75
[2020-12-26] MEDS: morphine 4 mg/mL SDV 1 mL 2 MG IVP ×2 (02:00→02:52)
[2020-12-26] MEDS: LORazepam 2 mg/mL INJ 1 mL 1 MG IVP (02:01)
[2020-12-26 02:52] VITALS: RESP 32
[2020-12-26] MEDS: ondansetron 2 mg/ML SDV 2 mL 4 MG IVP (03:42)
[2020-12-26] MEDS: LORazepam 2 mg/mL INJ 1 mL IVP (03:42)
[2020-12-26] MEDS: morphine 4 mg/mL SDV 1 mL IVP ×2 (03:43→04:04)
[2020-12-26 03:45] VITALS: PULSE 133; RESP 30; O2SAT 80
[2020-12-26] MEDS: ipratropium-albuterol 3 mL Neb INHALATION (03:45)
--- NOTE | 2020-12-26 05:28 | P.DES_ITS ---
Discharge Providers DDS Date of Admission: 12/12/20 00:18 Date Summary Completed: 12/26/20 Attending Provider at Admission: Alona Crouch MD Time of : 04:18 Attending Provider at Discharge: Jose Antonio Vallejo MD DS Diagnoses Hospital Diagnoses (1) Respiratory failure with hypoxia: Qualifiers: Chronicity: acute Qualified Code(s): J96.01 - Acute respiratory failure with hypoxia (2) Pneumonia due to 2019 novel coronavirus: (3) Coronary artery disease: Qualifiers: Coronary Disease-Associated Artery/Lesion type: [place] artery [place] vs. transplanted heart: [place] heart Associated angina: unspecified whether angina present Qualified Code(s): I25.10 - Atherosclerotic heart disease of [place] coronary artery without angina pectoris (4) Hypertension: (5) DVT prophylaxis: (6) Elevated LFTs: (7) Acute kidney injury: (8) Severe protein-energy malnutrition: Reason for Visit Reason for Visit: WEAKNESS/COVID+ Summary Date and Time of Date of : 12/26/20 Time of : 04:18 Summary Summary: Mr. Hernandez was admitted to the hospital with acute hypoxic respiratory failure secondary to ARDS due to COVID-19 pneumonia. He was treated with 10-day course dexamethasone, 5 day remdesivir, 1 dose Tocilizumab along with albuterol, budesonide inhalations, incentive spirometry. he continued to have worsening oxygen requirements, started saturating low to mid 80s even on extremely high FIO2 and he refused HFNC and BiPAP at times - wanted DNR/DNI and wanted to be comfortable disucssed with family and made comfort care on 12/26/20. I was informed in the morning that he at 04:18 AM on 12/26/20. Discharge Plan Discharge Patient Disposition: Condition: Stable Prescriptions: No Action terazosin 1 mg capsule 1 mg PO DAILY RF: 0 gemfibrozil 600 mg tablet 600 mg PO BID RF: 0 aspirin 81 mg Tablet,Chewable 81 mg PO DAILY RF: 0 lisinopril 5 mg tablet 5 mg PO DAILY RF: 0 metoprolol succinate 25 mg tablet extended release 24 hr 25 mg PO DAILY RF: 0 ezetimibe 10 mg tablet 10 mg PO DAILY RF: 0 DS Attestations Time Spent in /Discharge Care*: less than 30 min Quality - AMI: AMI present?: No Quality - Stroke: CVA present?: No Quality - VTE: VTE present?: No Coding Level of Care Code Acute Lead Die Molder for Chg Fwd Diagnoses Respiratory failure with hypoxia J96.01 Chronicity: acute Pneumonia due to 2019 novel coronavirus U07.1; J12.82 Coronary artery disease I25.10 Coronary Disease-Associated Artery/Lesion type: [place] artery [place] vs. transplanted heart: [place] heart Associated angina: unspecified whether angina present Hypertension I10 DVT prophylaxis Z29.9 Elevated LFTs R79.89 Acute kidney injury N17.9 Severe protein-energy malnutrition E43
--- NOTE | 2020-12-26 05:49 | PC.NURSE ---
Comfort care initiated at 0320, as wished by the patient's family. Patient at 041. Marketing/Sales Person and night time hospitalist Dr. Crouch notified of patient's time of . At 042 Nurse discussed home arrangements with patient's family and the family chose [facility] in [place]. Patient's Son/DPALEX Valdes signed body release form. At 043 patient's family left with all patient's belongings. At 0450 [facility] confirmed patient is not a candidate for organ donation. Post mortem care provided at 0530. [facility] contacted by charge nurse.
== END 2020-12-26 07:48 | disposition expired | DRG 177 ==
LOC: ER 22:03 → MEDSURG 22:45 → ICU 12-16 17:09 → MEDSURG 12-24 14:39
PROVIDERS: Hospitalist; Internal Medicine; Admitting Provider Student in an Organized Health Care Education/Training Program; Emergency Provider Emergency Medicine; Visit Provider Student in an Organized Health Care Education/Training Program
DX: U07.1 COVID-19 (principal); J80 Acute respiratory distress syndrome; E43 Unspecified severe protein-calorie malnutrition; N17.9 Acute kidney failure, unspecified; F05 Delirium due to known physiological condition; I25.10 Atherosclerotic heart disease of native coronary artery without angina pectoris; Z95.5 Presence of coronary angioplasty implant and graft; I10 Essential (primary) hypertension; Z95.1 Presence of aortocoronary bypass graft; E86.0 Dehydration; N40.0 Benign prostatic hyperplasia without lower urinary tract symptoms; J98.2 Interstitial emphysema; Z68.28 Body mass index [BMI] 28.0-28.9, adult; Z66 Do not resuscitate; Z51.5 Encounter for palliative care
CPT/HCPCS: 36415; 36416; 36600; 51702; 71045; 71275; 80051; 80053; 80202; 82140; 82330; 82550; 82728; 82803; 82805; 82962; 83036; 83540; 83550; 83605; 83615; 83880; 84145; 84443; 84484; 85025; 85378; 85384; 85651; 86140; 86403; 87040; 87449; 87641; 93005; 93306; 94640; 94660; 94664; 94762; 96365; 96372; 96375; 97110; 97163; 97530; 99285; J0456; J0696; J1100; J1650; J1815; J1940; J2060; J2270; J2405; J2543; J3262; J3370; J7030; J7050; J7626; Q9967